=== PATIENT | female | born 1980 | race Caucasian/White ===

== ENCOUNTER 2016-10-14 19:43 | Emergency (ER) | payer MEDICAID ==
[2016-10-14] MEDS ORDERED: diphenhydrAMINE 50 MG/ML SDV IM ONE (20:09)
[2016-10-14] MEDS ORDERED: methylPREDNISolone Sodium Succinate 125 MG/2 ML SDV IM ONE (20:10)
[2016-10-14] MEDS ORDERED: EPINEPHrine 1:1000 1 MG/ML SDV SUBCUT ONE (20:11)
[2016-10-14 21:45] VITALS: BP 131/80
--- NOTE | 2016-10-14 21:48 | EDM.PDOC ---
ED HPI Allergic Reaction - General Chief Complaint: Allergic Reaction Stated Complaint: ALLERGIC REACTION Time Seen by Provider: 10/14/16 20:31 Source: Reports: Patient History Limitations: Reports: No limitations - History of Present Illness INITIAL COMMENTS - FREE TEXT/NARRATIVE: This patient comes in because of an acute allergic reaction to Levaquin. She's been having some upper respiratory/bronchitis issues for about a week. She's been on some different antibiotics and earlier today her dose of Levaquin was increased. Now she complains of tightness in the chest with burning a little bit of shortness of breath and feeling her skin is just burning all over. - Related Data Allergies/ADRs: Allergies Allergy/AdvReac Type Severity Reaction Status Date / Time aspirin Allergy Anaphylactic Verified 02/19/16 16:36 Shock levofloxacin Allergy Difficulty Verified 10/14/16 19:56 Swallowing NSAIDS (Non-Steroidal Allergy Anaphylactic Verified 02/19/16 16:36 Anti-Inflamma Shock Home Meds: Home Meds Acetaminophen [Tylenol Arthritis] 650 mg PO DAILY 02/19/16 [History] Citalopram Hydrobromide [Celexa] 40 mg PO DAILY 02/19/16 [History] busPIRone [Buspar] 20 mg PO BID 02/19/16 [History] Pantoprazole 10/14/16 [History] SUMAtriptan [Imitrex] 10/14/16 [History] Past Medical History HEENT History: Reports: Allergic rhinitis, Other (see below) Other HEENT History: presnetly c/o of headache Respiratory History: Reports: Asthma Gastrointestinal History: Reports: GERD 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, Other (see below) Other OB/BYN History: R oophectomy Musculoskeletal History: Reports: Arthritis, Other (see below) Other Musculoskeletal History: chronic shoulder and neck pain Neurological History: Reports: Migraines Psychiatric History: Reports: Anxiety, OCD, PTSD - Infectious Disease History Infectious Disease History: Reports: Chicken pox - Past Surgical History HEENT Surgical History: Reports: Adenoidectomy, Tonsillectomy GI Surgical History: Reports: Bariatric procedure, Cholecystectomy Female Surgical History: Reports: Endometrial ablation, Other (see below) Other Female Surgeries/Procedures: right ovary and fallopian tube removed Musculoskeletal Surgical History: Reports: None Social & Family History - Tobacco Use Smoking Status *Q: Current Every Day Smoker Years of Tobacco use: 1 Packs/Tins Daily: 0.5 - Alcohol Use Days Per Week of Alcohol Use: 0 - Recreational Drug Use Recreational Drug Use: No ED ROS ALLERGIC REACTION - Review of Systems Review Of Systems: See Below Constitutional: Reports: chills HEENT: Reports: No symptoms Respiratory: Reports: Shortness of Breath, Cough, Sputum Cardiovascular: Reports: Chest pain (Burning) Endocrine: Reports: no symptoms GI/Abdominal: Reports: No symptoms : Reports: no symptoms Musculoskeletal: Reports: no symptoms Skin: Reports: other (Redness itching and burning all over) Neurological: Reports: No Symptoms ED EXAM GENERAL NO PERIP PULSE - Physical Exam Exam: See Below Exam Limited By: No limitations General Appearance: alert, WD/WN, mild distress Eye Exam: bilateral eye: normal inspection Nose: normal inspection Throat/Mouth: Normal oropharynx Head: atraumatic Neck: normal inspection Respiratory/Chest: lungs clear, normal breath sounds Cardiovascular: regular rate, rhythm, no murmur GI/Abdominal: non tender Extremities: normal inspection Neurological: alert, sensory/motor deficit Skin Exam: Warm, Dry, Other (There some moderate erythema to the neck upper chest and upper arms but without obvious wheals. She's scratching a lot) Course - Vital Signs Last Recorded V/S: Last Vital Signs Temp 36.5 C 10/14/16 20:05 Pulse 70 10/14/16 21:45 Resp 18 10/14/16 20:05 BP 131/80 10/14/16 21:45 Pulse Ox 97 10/14/16 21:45 - Orders/Labs/Meds Meds: Medications Discontinued Medications Generic Name Dose Route Start Last Admin Trade Name Ervin PRN Reason Stop Dose Admin Diphenhydramine HCl 50 mg 10/14/16 20:09 10/14/16 20:13 Benadryl IM 10/14/16 20:10 50 mg ONETIME ONE Administration Epinephrine HCl 0.3 mg 10/14/16 20:11 10/14/16 20:14 Adrenalin 1:1000 SUBCUT 10/14/16 20:12 0.3 mg ONETIME ONE Administration Methylprednisolone Sodium Succinate 125 mg 10/14/16 20:10 10/14/16 20:14 Solu-Medrol IM 10/14/16 20:11 125 mg ONETIME ONE Administration - Re-Assessments/Exams Free Text/Narrative Re-Assessment/Exam: 10/15/16 06:37 The patient received Benadryl 50 mg IM Solu-Medrol 125 mg IM and epinephrine 0.3 mg subcutaneously. She was observed over a period of about one hour and her symptoms slowly resolved. At the time of discharge she's feeling a lot better. The burning has subsided the redness is gone her lungs are clear and her oropharynx appears to be normal. We had a long discussion about viral upper respiratory infections, the use of antibiotics in this scenario as well as mucolytic such as guaifenesin and cough suppressants such as dextromethorphan and so forth Departure - Departure Time of Disposition: 21:42 Disposition: Home, Self-Care 01 Condition: fair Clinical Impression: Allergic reaction caused by a drug Instructions: Drug Allergy, [id number] Referrals: PCP,None [Primary Care Provider] - Forms: ED Department Discharge Additional Instructions: Stop taking the Levaquin. Take prednisone 20 mg daily for 2 days. If needed you could take one half tablet daily afterwards and it should not cause problems with steroid withdrawal. Guaifenesin available in Mucinex and other products can help to thin out the sputum so that it clears faster. Some people find that guaifenesin actually makes them cough more because it produces more flow. After a viral upper respiratory infection it's common to cough for 4-6 weeks. The trend is getting away from using antibiotics in upper respiratory infections though they may be needed in people with chronic lung diseases.
== END 2016-10-14 22:02 | disposition home or self-care (01) ==
LOC: JP.ED 19:43
DX: R07.89 Other chest pain (principal); R06.02 Shortness of breath; T37.8X5A Adverse effect of other specified systemic anti-infectives and antiparasitics, initial encounter; K21.9 Gastro-esophageal reflux disease without esophagitis; F41.9 Anxiety disorder, unspecified; F17.210 Nicotine dependence, cigarettes, uncomplicated; Z79.899 Other long term (current) drug therapy; Z88.1 Allergy status to other antibiotic agents; Z88.8 Allergy status to other drugs, medicaments and biological substances; Z98.84 Bariatric surgery status; Z90.49 Acquired absence of other specified parts of digestive tract; Z98.890 Other specified postprocedural states
CPT/HCPCS: 96372; 99283; J0171; J1200; J2930

== ENCOUNTER 2016-12-02 18:34 | Emergency (ER) | payer MEDICAID ==
[2016-12-02] MEDS ORDERED: HYDROmorphone 1 MG/ML Syringe IVPUSH ONE (19:24)
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
[2016-12-02] MEDS: Sodium Chloride 0.9% 10 ML Syringe FLUSH PRN ×3 (19:38→20:56)
[2016-12-02] MEDS ORDERED: Ondansetron 4 MG/2 ML SDV IVPUSH ONE (20:21)
[2016-12-02] MEDS ORDERED: diphenhydrAMINE 50 MG/ML SDV IVPUSH ONE (20:49)
[2016-12-02 21:25] VITALS: BP 124/68
--- NOTE | 2016-12-03 13:30 | CR ---
Cervical Spine Comp w Obliques INDICATION: post fusion out 2 weeks, pain FINDINGS: Mild reversal of normal cervical lordosis. Postoperative changes anterior plate and screw fixation with interbody spacers from C5-C7. Exam otherwise unremarkable.
== END 2016-12-02 21:38 | disposition home or self-care (01) ==
LOC: JP.ED 18:34
DX: G89.18 Other acute postprocedural pain (principal); M54.2 Cervicalgia; J45.909 Unspecified asthma, uncomplicated; K21.9 Gastro-esophageal reflux disease without esophagitis; M19.90 Unspecified osteoarthritis, unspecified site; G43.909 Migraine, unspecified, not intractable, without status migrainosus; F41.9 Anxiety disorder, unspecified; Z90.49 Acquired absence of other specified parts of digestive tract; Z98.890 Other specified postprocedural states; Z88.6 Allergy status to analgesic agent; Z88.8 Allergy status to other drugs, medicaments and biological substances; Z88.0 Allergy status to penicillin; Z79.899 Other long term (current) drug therapy; Z87.891 Personal history of nicotine dependence
CPT/HCPCS: 36415; 72050; 85025; 85651; 86140; 96374; 96375; 99284; J1170; J1200; J2405; J7050

== ENCOUNTER 2017-02-02 08:14 | Emergency (ER) | payer MEDICAID ==
[2017-02-02] MEDS ORDERED: Prochlorperazine 10 MG/2 ML SDV IVPUSH ONE (09:12)
[2017-02-02] MEDS ORDERED: Ketorolac 30 MG/ML SDV IVPUSH ONE (09:12)
[2017-02-02] MEDS ORDERED: diphenhydrAMINE 50 MG/ML SDV IVPUSH ONE (09:12)
[2017-02-02] MEDS ORDERED: Sodium Chloride 0.9% 1,000 ML IV SCH (09:15)
--- NOTE | 2017-02-02 09:18 | EDM.PDOC ---
ED HPI GENERAL MEDICAL PROBLEM - General Chief Complaint: Headache Stated Complaint: HEADACHE FOR PAST SEVERAL DAYS Time Seen by Provider: 02/02/17 08:58 Source of Information: Reports: Patient, RN Notes Reviewed History Limitations: Reports: No Limitations - History of Present Illness INITIAL COMMENTS - FREE TEXT/NARRATIVE: 36-year-old female presents emergency department day complaint of headache, she has a known history of migraine headaches she states this feels typical for her migraines however she has had a fever up to 100.8 her children are currently sick and there is a potential of strep exposure, she also has a history of neck surgery with fusion and plates so always has chronic neck pain Headache Pain Score (Numeric/FACES): 9 - Related Data Allergies Allergy/AdvReac Type Severity Reaction Status Date / Time aspirin Allergy Anaphylactic Verified 02/02/17 08:32 Shock levofloxacin Allergy Difficulty Verified 02/02/17 08:32 Swallowing NSAIDS (Non-Steroidal Allergy Anaphylactic Verified 02/02/17 08:32 Anti-Inflamma Shock Penicillins Allergy Rash Verified 02/02/17 08:32 Home Meds: Home Meds Acetaminophen [Tylenol Arthritis] 650 mg PO DAILY 02/19/16 [History] Citalopram Hydrobromide [Celexa] 40 mg PO DAILY 02/19/16 [History] busPIRone [Buspar] 30 mg PO BID 02/19/16 [History] Pantoprazole 1 tab PO BID 10/14/16 [History] Lactobacillus Acidophilus [Probiotic] 1 each PO DAILY 12/02/16 [History] Calcium Carbonate [Calcium] 1 tab PO TID 02/02/17 [History] Iron,Carbonyl/Ascorbic Acid [Vitron-C Tablet] 1 tab PO DAILY 02/02/17 [History] SUMAtriptan [Imitrex] 1 tab PO ASDIRECTED 02/02/17 [History] tiZANidine 1 tab PO ASDIRECTED 02/02/17 [History] Past Medical History HEENT History: Reports: Allergic Rhinitis Other HEENT History: presnetly c/o of headache Respiratory History: Reports: Asthma Gastrointestinal History: Reports: GERD 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 Other OB/BYN History: R oophectomy Musculoskeletal History: Reports: Arthritis Other Musculoskeletal History: chronic shoulder and neck pain Neurological History: Reports: Migraines Psychiatric History: Reports: Anxiety, OCD, PTSD - Infectious Disease History Infectious Disease History: Reports: Chicken Pox - Past Surgical History GI Surgical History: Reports: Bariatric Procedure, Cholecystectomy Female Surgical History: Reports: Endometrial Ablation Neurological Surgical History: Reports: Spinal Fusion Musculoskeletal Surgical History: Reports: Other (See Below) Other Musculoskeletal Surgeries/Procedures:: Neck surgery Social & Family History - Tobacco Use Smoking Status *Q: Heavy Tobacco Smoker Years of Tobacco use: 14 Packs/Tins Daily: 0.5 Used Tobacco, but Quit: Yes Month Tobacco Last Used: November Second Hand Smoke Exposure: No - Caffeine Use Caffeine Use: Reports: Coffee, Soda - Alcohol Use Days Per Week of Alcohol Use: 0 - Recreational Drug Use Recreational Drug Use: No ED ROS GENERAL - Review of Systems Review Of Systems: See Below Constitutional: Reports: Fever. Denies: Chills HEENT: Reports: No Symptoms. Denies: Throat Pain, Throat Swelling Respiratory: Reports: No Symptoms Cardiovascular: Reports: No Symptoms GI/Abdominal: Reports: Nausea. Denies: Abdominal Pain : Reports: No Symptoms Musculoskeletal: Reports: No Symptoms Skin: Reports: No Symptoms Neurological: Reports: Headache Psychiatric: Reports: No Symptoms - Physical Exam Exam: See Below Text/Narrative:: General: Female, mild discomfort secondary to pain, alert and oriented x3 HEENT: head is atraumatic normocephalic, eyes pupils equal round reactive to light, sclera clear no conjunctivitis appreciated. Funduscopic exam reveals sharp disc margins no papilledema noted Ears tympanic membranes clear and roberts landmarks and light reflex are present bilaterally canals are clear. Nose no septal deviation, nares are clear, no blood present. Mouth mucosa is moist and pink no erythema or exudate noted in soft palate, tongue is midline uvula is midline , dentition is intact. Neck: Supple no thyromegaly no tracheal deviation. Does complain of pain with putting her chin to her chest however it is not out of baseline Nodes: Cervical nodes subclavicular nodes nontender no palpable lymphadenopathy noted. Lungs: clear to auscultation bilaterally with symmetrical respirations, no adventitious noise appreciated. CV: Regular rate and rhythm S1 and S2 appreciated no murmurs rubs or gallops noted. Abdomen: Soft, nontender, no palpable masses or organomegaly appreciated, no distention no guarding bowel sounds are present, . Neuro: Cranial nerves II through XII grossly intact Skin: Warm and dry, intact Extremities: No lower extremity edema appreciated, Course - Vital Signs Last Recorded V/S: Last Vital Signs Temp 97.3 F 02/02/17 09:48 Pulse 63 02/02/17 09:48 Resp 16 02/02/17 09:48 BP 109/72 02/02/17 09:48 Pulse Ox 97 02/02/17 09:48 - Orders/Labs/Meds Orders: Active Orders 24 hr Category Date Time Status CULTURE STREP A CONFIRMATION [] Stat Lab 02/02/17 09:51 Results STREP SCRN A RAPID W CULT CONF [] Stat Lab 02/02/17 09:51 Results Sodium Chloride 0.9% [Normal Saline] 1,000 ml Med 02/02/17 09:15 Active IV ASDIRECTED Medication Orders Sodium Chloride (Normal Saline) 1,000 mls @ 999 mls/hr IV ASDIRECTED BRYCE Last Admin: 02/02/17 09:39 Dose: 999 mls/hr Labs: Laboratory Tests 02/02/17 02/02/17 02/02/17 Range/Units 09:20 09:20 09:20 WBC 7.2 (4.5-11.0) K/uL RBC 4.89 (3.30-5.50) M/uL Hgb 13.6 (12.0-15.0) g/dL Hct 41.2 (36.0-48.0) % MCV 84 (80-98) fL MCH 28 (27-31) pg MCHC 33 (32-36) % Plt Count 262 (150-400) K/uL Neut % (Auto) 50 (36-66) % Lymph % (Auto) 35 (24-44) % [place] % (Auto) 7 H (2-6) % Eos % (Auto) 6 H (2-4) % Baso % (Auto) 2 H (0-1) % Sodium 142 (140-148) mmol/L Potassium 4.3 (3.6-5.2) mmol/L Chloride 107 (100-108) mmol/L Carbon Dioxide 30 (21-32) mmol/L Anion Gap 5.2 (5.0-14.0) mmol/L BUN 12 (7-18) mg/dL Creatinine 0.8 (0.6-1.0) mg/dL Est Cr Clr Drug Dosing 83.95 mL/min Estimated GFR (MDRD) > 60 (>60) Glucose 80 (74-106) mg/dL Calcium 8.8 (8.5-10.1) mg/dL Total Bilirubin 0.4 (0.2-1.0) mg/dL AST 25 (15-37) U/L ALT 30 (12-78) U/L Alkaline Phosphatase 79 (46-116) U/L C-Reactive Protein 0.34 H (0.0-0.3) mg/dL Total Protein 7.5 (6.4-8.2) g/dL Albumin 3.5 (3.4-5.0) g/dL Globulin 4.0 H (2.3-3.5) g/dL Albumin/Globulin Ratio 0.9 L (1.2-2.2) Meds: Medications Generic Name Dose Route Start Last Admin Trade Name Freq PRN Reason Stop Dose Admin Sodium Chloride 1,000 mls @ 999 mls/hr 02/02/17 09:15 02/02/17 09:39 Normal Saline IV 999 mls/hr ASDIRECTED BRYCE Administration Discontinued Medications Generic Name Dose Route Start Last Admin Trade Name Freq PRN Reason Stop Dose Admin Diphenhydramine HCl 25 mg 02/02/17 09:12 02/02/17 09:46 Benadryl IVPUSH 02/02/17 09:13 25 mg ONETIME ONE Administration Ketorolac Tromethamine 30 mg 02/02/17 09:12 02/02/17 09:41 Toradol IVPUSH 02/02/17 09:13 30 mg ONETIME ONE Administration Prochlorperazine Edisylate 5 mg 02/02/17 09:12 02/02/17 09:43 Compazine IVPUSH 02/02/17 09:13 5 mg ONETIME ONE Administration Departure - Departure Time of Disposition: 10:26 Disposition: Home, Self-Care 01 Condition: Good Clinical Impression: Migraine - Discharge Information Forms: ED Department Discharge Additional Instructions: Continue with regular medications, Please followup with your primary care provider in 3-5 days if not better, please call return to the emergency department with worsening of symptoms. - My Orders Last 24 Hours: My Active Orders 02/02/17 09:15 Sodium Chloride 0.9% [Normal Saline] 1,000 ml IV ASDIRECTED 02/02/17 09:51 CULTURE STREP A CONFIRMATION [RM] Stat STREP SCRN A RAPID W CULT CONF [RM] Stat - Assessment/Plan Last 24 Hours: My Active Orders 02/02/17 09:15 Sodium Chloride 0.9% [Normal Saline] 1,000 ml IV ASDIRECTED 02/02/17 09:51 CULTURE STREP A CONFIRMATION [RM] Stat STREP SCRN A RAPID W CULT CONF [RM] Stat Plan: Assessment Acuity = acute Site and laterality = migraine type headache Etiology = unclear etiology Manifestations = none Location of injury = Home Lab values = CBC, CMP, CRP unremarkable Plan She had good improvement combination Toradol, Compazine, fluids and Benadryl she feels she can go home and may be rest and continue to break the headache follow-up with her primary care as needed Patient was in agreement with the plan all questions were answered, they were instructed to return to the emergency department or call for worsening symptoms. This note was dictated using [employer] voice recognition software please call with any questions.
[2017-02-02 09:49] VITALS: BP 109/72
== END 2017-02-02 11:10 | disposition home or self-care (01) ==
LOC: JP.ED 08:14
DX: G43.909 Migraine, unspecified, not intractable, without status migrainosus (principal); F17.210 Nicotine dependence, cigarettes, uncomplicated; J45.909 Unspecified asthma, uncomplicated; K21.9 Gastro-esophageal reflux disease without esophagitis; M19.90 Unspecified osteoarthritis, unspecified site; F43.10 Post-traumatic stress disorder, unspecified; F41.9 Anxiety disorder, unspecified; Z90.49 Acquired absence of other specified parts of digestive tract; Z98.890 Other specified postprocedural states; Z79.899 Other long term (current) drug therapy; Z90.710 Acquired absence of both cervix and uterus; Z98.84 Bariatric surgery status; Z88.6 Allergy status to analgesic agent; Z88.1 Allergy status to other antibiotic agents; Z88.0 Allergy status to penicillin; Z88.8 Allergy status to other drugs, medicaments and biological substances
CPT/HCPCS: 36415; 80053; 85025; 86140; 87081; 87430; 96361; 96374; 96375; 99284; J0780; J1200; J1885; J7040

== ENCOUNTER 2017-02-19 11:54 | Emergency (ER) | payer MEDICAID ==
[2017-02-19 12:12] VITALS: BP 126/74
[2017-02-19] MEDS ORDERED: Ketorolac 60 MG/2 ML SDV IM ONE (12:38)
--- NOTE | 2017-02-19 14:07 | EDM.PDOC ---
ED HPI GENERAL MEDICAL PROBLEM - General Chief Complaint: Chest Pain Stated Complaint: CHEST PAIN Time Seen by Provider: 02/19/17 12:10 Source of Information: Reports: Patient History Limitations: Reports: No Limitations - History of Present Illness INITIAL COMMENTS - FREE TEXT/NARRATIVE: PT HAS HAD A RECENT PROCEDURE ON HER LEFT SHOULDER AND IS GETTING pt. sHE IS DOING SOME STRETCHING EXERCISES. sHE HASNOT FALLEN OR HAD A INJURY. tODAY SHE IS HAVEING PAIN IN THE LEFT LOWER RIB CAGE. sHE IS UNCOMFORTABLE WITH MOVING OR TURNING. Onset: Gradual Duration: Hour(s): Location: Reports: Chest Associated Symptoms: Reports: Chest Pain Chest Pain Score (Numeric/FACES): 5 - Related Data Allergies Allergy/AdvReac Type Severity Reaction Status Date / Time aspirin Allergy Anaphylactic Verified 02/19/17 12:12 Shock levofloxacin Allergy Difficulty Verified 02/19/17 12:12 Swallowing NSAIDS (Non-Steroidal Allergy Anaphylactic Verified 02/19/17 12:12 Anti-Inflamma Shock Penicillins Allergy Rash Verified 02/19/17 12:12 Home Meds: Home Meds Acetaminophen [Tylenol Arthritis] 650 mg PO DAILY 02/19/16 [History] Citalopram Hydrobromide [Celexa] 40 mg PO DAILY 02/19/16 [History] busPIRone [Buspar] 30 mg PO BID 02/19/16 [History] Pantoprazole 1 tab PO BID 10/14/16 [History] Lactobacillus Acidophilus [Probiotic] 1 each PO DAILY 12/02/16 [History] Calcium Carbonate [Calcium] 1 tab PO TID 02/02/17 [History] Iron,Carbonyl/Ascorbic Acid [Vitron-C Tablet] 1 tab PO DAILY 02/02/17 [History] SUMAtriptan [Imitrex] 1 tab PO ASDIRECTED 02/02/17 [History] tiZANidine 1 tab PO ASDIRECTED 02/02/17 [History] Hydrocodone/Acetaminophen [Hydrocodon-Acetaminophen 5-325] 1 each PO Q4HR [History] methylPREDNISolone [Methylprednisolone] 4 mg PO DAILY 02/19/17 [History] Past Medical History HEENT History: Reports: Allergic Rhinitis Other HEENT History: presnetly c/o of headache Respiratory History: Reports: Asthma Gastrointestinal History: Reports: GERD 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 Other OB/BYN History: R oophectomy Musculoskeletal History: Reports: Arthritis Other Musculoskeletal History: chronic shoulder and neck pain Neurological History: Reports: Migraines Psychiatric History: Reports: Anxiety, OCD, PTSD - Infectious Disease History Infectious Disease History: Reports: Chicken Pox - Past Surgical History GI Surgical History: Reports: Bariatric Procedure, Cholecystectomy Female Surgical History: Reports: Endometrial Ablation Neurological Surgical History: Reports: Spinal Fusion Musculoskeletal Surgical History: Reports: Other (See Below) Other Musculoskeletal Surgeries/Procedures:: Neck surgery Social & Family History - Tobacco Use Smoking Status *Q: Current Every Day Smoker Years of Tobacco use: 15 Packs/Tins Daily: 0.5 Used Tobacco, but Quit: Yes Month Tobacco Last Used: November Second Hand Smoke Exposure: No - Caffeine Use Caffeine Use: Reports: Coffee - Alcohol Use Days Per Week of Alcohol Use: 0 - Recreational Drug Use Recreational Drug Use: No ED ROS GENERAL - Review of Systems Review Of Systems: See Below Constitutional: Reports: No Symptoms HEENT: Reports: No Symptoms Respiratory: Reports: Pleuritic Chest Pain, Other (PT HAS PAIN IN HER LEFT CHEST. ) Cardiovascular: Reports: Chest Pain, Other ( SEEMES CHEST WALL) Endocrine: Reports: No Symptoms GI/Abdominal: Reports: No Symptoms : Reports: No Symptoms Musculoskeletal: Reports: Other (TENDERNESS IN THE LEFT CHEST. ) ED EXAM, GENERAL - Physical Exam Exam: See Below Free Text/Narrative:: PT ARRIVED WITH LKEFT CHEST PAIN. sHE HURTS TO MOVE AND IF THERE IS PRESSURE ON THE LEFT RIB CAGE-- LOWER PORTION. Exam Limited By: No Limitations General Appearance: Alert, Anxious, Moderate Distress Ears: Normal TMs Nose: Normal Inspection Throat/Mouth: Normal Inspection Head: Atraumatic Neck: Normal Inspection Respiratory/Chest: No Respiratory Distress (PT IS TENDER TO PALPATE THE LEFT LOWER RIB CAGE. ) Cardiovascular: Regular Rate, Rhythm, Other ( EKG IS NORMAL) GI/Abdominal: Other (PT HAS LEFT SIDED TENDERNESS tHE INTERCOSTAL AREA IS VERY TENDER. . ) (Female) Exam: Deferred Rectal (Female) Exam: Deferred Back Exam: Normal Inspection Extremities: Normal Inspection Course - Vital Signs Last Recorded V/S: Last Vital Signs Temp 36.4 C 02/19/17 12:06 Pulse 82 02/19/17 12:06 Resp 16 02/19/17 12:06 BP 126/74 02/19/17 12:06 Pulse Ox 95 02/19/17 12:06 - Orders/Labs/Meds Orders: Active Orders 24 hr Category Date Time Status EKG Documentation Completion [RC] ASDIRECTED Care 02/19/17 12:39 Active EKG 12 Lead [EK] Routine Ther 02/19/17 12:39 Ordered Labs: Laboratory Tests 02/19/17 02/19/17 02/19/17 Range/Units 12:53 12:53 12:53 WBC 10.2 (4.5-11.0) K/uL RBC 4.77 (3.30-5.50) M/uL Hgb 13.1 (12.0-15.0) g/dL Hct 40.7 (36.0-48.0) % MCV 85 (80-98) fL MCH 28 (27-31) pg MCHC 32 (32-36) % Plt Count 249 (150-400) K/uL Neut % (Auto) 51 (36-66) % Lymph % (Auto) 38 (24-44) % Carroll % (Auto) 8 H (2-6) % Eos % (Auto) 2 (2-4) % Baso % (Auto) 1 (0-1) % Sodium 140 (140-148) mmol/L Potassium 3.9 (3.6-5.2) mmol/L Chloride 105 (100-108) mmol/L Carbon Dioxide 28 (21-32) mmol/L Anion Gap 7.5 (5.0-14.0) mmol/L BUN 12 (7-18) mg/dL Creatinine 0.9 (0.6-1.0) mg/dL Est Cr Clr Drug Dosing 74.62 mL/min Estimated GFR (MDRD) > 60 (>60) Glucose 79 (74-106) mg/dL Calcium 8.5 (8.5-10.1) mg/dL Total Bilirubin 0.4 (0.2-1.0) mg/dL AST 24 (15-37) U/L ALT 29 (12-78) U/L Alkaline Phosphatase 73 (46-116) U/L C-Reactive Protein 0.12 (0.0-0.3) mg/dL Total Protein 7.3 (6.4-8.2) g/dL Albumin 3.5 (3.4-5.0) g/dL Globulin 3.8 H (2.3-3.5) g/dL Albumin/Globulin Ratio 0.9 L (1.2-2.2) Meds: Medications Discontinued Medications Generic Name Dose Route Start Last Admin Trade Name Ervin PRN Reason Stop Dose Admin Ketorolac Tromethamine 60 mg 02/19/17 12:38 02/19/17 12:50 Toradol IM 02/19/17 12:39 60 mg ONETIME ONE Administration - Re-Assessments/Exams Free Text/Narrative Re-Assessment/Exam: 02/19/17 14:14 pT ARRIVED WITH PAIN IN HER LEFT CHEST. tHIS IS WORSE WHEN SHE MOVES. sHE HAD AN EKG WHICH WAS NORMAL. hER CHEST XRAY WAS NORMAL. hER LAB WORK LOOKED GOOD. sHE WAS GIVEN TORODOL WITHOUT GOOD RELIEF. Departure - Departure Time of Disposition: 14:16 Disposition: Home, Self-Care 01 Condition: Fair Clinical Impression: Chest wall pain - Discharge Information Referrals: PCP,None [Primary Care Provider] - Forms: ED Department Discharge Care Plan Goals: BACK OFF ON SOME OF THE THERAPY, MPOIST WARM HEAT TO THE AREA, FLEXERIL 10MG HS , NORCO 5/325 Q6H PRN FOR PAIN FOR NEX 48 HOURS THEN USE TYLENOL 650. M - My Orders Last 24 Hours: My Active Orders 02/19/17 12:39 EKG Documentation Completion [RC] ASDIRECTED EKG 12 Lead [EK] Routine - Assessment/Plan Last 24 Hours: My Active Orders 02/19/17 12:39 EKG Documentation Completion [RC] ASDIRECTED EKG 12 Lead [EK] Routine
--- NOTE | 2017-02-19 14:12 | CR ---
Chest 2V HISTORY: No Clinical Info FINDINGS: Heart size within normal limits. Pulmonary vasculature within normal limits. No evidence fo r focal consolidation or cardiopulmonary process. IMPRESSION: No radiographic evidence for acute cardiopulmonary process.
== END 2017-02-19 14:30 | disposition home or self-care (01) ==
LOC: JP.ED 11:54
DX: R07.89 Other chest pain (principal); J45.909 Unspecified asthma, uncomplicated; K21.9 Gastro-esophageal reflux disease without esophagitis; M19.90 Unspecified osteoarthritis, unspecified site; F41.9 Anxiety disorder, unspecified; F17.210 Nicotine dependence, cigarettes, uncomplicated; Z98.84 Bariatric surgery status; Z90.49 Acquired absence of other specified parts of digestive tract; Z98.1 Arthrodesis status; Z98.890 Other specified postprocedural states; Z79.899 Other long term (current) drug therapy; Z88.0 Allergy status to penicillin; Z88.1 Allergy status to other antibiotic agents; Z88.8 Allergy status to other drugs, medicaments and biological substances
CPT/HCPCS: 36415; 71020; 80053; 85025; 86140; 93005; 96372; 99285; J1885

== ENCOUNTER 2017-03-23 21:15 | Emergency (ER) | payer MEDICAID ==
[2017-03-23] MEDS ORDERED: LORazepam 0.5 MG Tab PO ONE (23:16)
[2017-03-23] MEDS ORDERED: diphenhydrAMINE 50 MG/ML SDV IM ONE (23:16)
--- NOTE | 2017-03-23 23:22 | EDM.PDOC ---
ED HPI GENERAL MEDICAL PROBLEM - General Chief Complaint: General Stated Complaint: DIZZY FAINT HIGH BLOOD PRESSURE Time Seen by Provider: 03/23/17 22:30 Source of Information: Reports: Patient, Family History Limitations: Reports: No Limitations - History of Present Illness INITIAL COMMENTS - FREE TEXT/NARRATIVE: pt arrived feeling itchy and she has a burning sensation in her left arm area. She had an imjection at the pain clinic in the left post thoracic area. she knows there was some steriod in the injection. She has never reacted to the steriod in the past. She does not have her paper her with her that shows what the injection consisted of. Onset: Today Duration: Hour(s):, Getting Worse Location: Reports: Chest, Upper Extremity, Left, Other ( Pt has a burning sensation in the left upper arm area and left shoulder. ) Headache Pain Score (Numeric/FACES): 7 - Related Data Allergies Allergy/AdvReac Type Severity Reaction Status Date / Time aspirin Allergy Anaphylactic Verified 03/23/17 22:56 Shock levofloxacin Allergy Difficulty Verified 03/23/17 22:56 Swallowing NSAIDS (Non-Steroidal Allergy Anaphylactic Verified 03/23/17 22:56 Anti-Inflamma Shock Penicillins Allergy Rash Verified 03/23/17 22:56 Home Meds: Home Meds Acetaminophen [Tylenol Arthritis] 650 mg PO DAILY 02/19/16 [History] Citalopram Hydrobromide [Celexa] 40 mg PO DAILY 02/19/16 [History] busPIRone [Buspar] 30 mg PO BID 02/19/16 [History] Pantoprazole 1 tab PO BID 10/14/16 [History] Lactobacillus Acidophilus [Probiotic] 1 each PO DAILY 12/02/16 [History] Calcium Carbonate [Calcium] 1 tab PO TID 02/02/17 [History] Iron,Carbonyl/Ascorbic Acid [Vitron-C Tablet] 1 tab PO DAILY 02/02/17 [History] SUMAtriptan [Imitrex] 1 tab PO ASDIRECTED 02/02/17 [History] Hydrocodone/Acetaminophen [Hydrocodon-Acetaminophen 5-325] 1 each PO Q4HR [History] Past Medical History HEENT History: Reports: Allergic Rhinitis Other HEENT History: presnetly c/o of headache Respiratory History: Reports: Asthma Gastrointestinal History: Reports: GERD 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 Other OB/BYN History: R oophectomy Musculoskeletal History: Reports: Arthritis Other Musculoskeletal History: chronic shoulder and neck pain Neurological History: Reports: Migraines Psychiatric History: Reports: Anxiety, OCD, PTSD - Infectious Disease History Infectious Disease History: Reports: Chicken Pox - Past Surgical History GI Surgical History: Reports: Bariatric Procedure, Cholecystectomy Female Surgical History: Reports: Endometrial Ablation Neurological Surgical History: Reports: Spinal Fusion Musculoskeletal Surgical History: Reports: Other (See Below) Other Musculoskeletal Surgeries/Procedures:: Neck surgery Injections for pain [facility] in [place]. Social & Family History - Tobacco Use Smoking Status *Q: Current Every Day Smoker Years of Tobacco use: 15 Packs/Tins Daily: 0.5 Used Tobacco, but Quit: No Month Tobacco Last Used: November Second Hand Smoke Exposure: No - Caffeine Use Caffeine Use: Reports: Coffee, Soda - Alcohol Use Days Per Week of Alcohol Use: 0 - Recreational Drug Use Recreational Drug Use: No ED ROS GENERAL - Review of Systems Review Of Systems: See Below Constitutional: Reports: No Symptoms HEENT: Reports: No Symptoms Respiratory: Reports: No Symptoms, Other (pt had a left post injection in the past. ) Cardiovascular: Reports: No Symptoms Endocrine: Reports: No Symptoms GI/Abdominal: Reports: No Symptoms : Reports: No Symptoms Musculoskeletal: Reports: Other ( burning in the left upper arm and shoulder area. ) Skin: Reports: No Symptoms Neurological: Reports: No Symptoms ED EXAM, GENERAL - Physical Exam Exam: See Below Free Text/Narrative:: pt was burning in the left shoulder and feeling slightly itchy. She did have a steroid injection in the cervical area yesterday. Ifeel the sensation she is having is related to that. Exam Limited By: No Limitations General Appearance: Alert, Anxious Ears: Normal TMs Nose: Normal Inspection Throat/Mouth: Normal Inspection Head: Atraumatic Neck: Normal Inspection Respiratory/Chest: Other ( pt has a burning sensation in the left upper chest. It feels hot. She had cervical injection with steroids. ) Cardiovascular: Regular Rate, Rhythm Peripheral Pulses: 4+: Dorsalis Pedis (R) GI/Abdominal: Soft, Non-Tender (Female) Exam: Deferred Rectal (Female) Exam: Deferred Extremities: Other (pt does not have hives but she does feel slightly itchy. ) Course - Vital Signs Last Recorded V/S: Last Vital Signs Temp 35.4 C 03/24/17 00:05 Pulse 68 03/24/17 00:05 Resp 20 03/24/17 00:05 BP 154/64 H 03/24/17 00:05 Pulse Ox 97 03/23/17 23:04 - Orders/Labs/Meds Labs: Laboratory Tests 03/23/17 03/23/17 Range/Units 23:27 23:27 WBC 15.6 H (4.5-11.0) K/uL RBC 4.58 (3.30-5.50) M/uL Hgb 12.8 (12.0-15.0) g/dL Hct 38.5 (36.0-48.0) % MCV 84 (80-98) fL MCH 28 (27-31) pg MCHC 33 (32-36) % Plt Count 268 (150-400) K/uL Neut % (Auto) 61 (36-66) % Lymph % (Auto) 32 (24-44) % [place]ruff % (Auto) 6 (2-6) % Eos % (Auto) 1 L (2-4) % Baso % (Auto) 1 (0-1) % Sodium 142 (140-148) mmol/L Potassium 4.1 (3.6-5.2) mmol/L Chloride 105 (100-108) mmol/L Carbon Dioxide 28 (21-32) mmol/L Anion Gap 8.8 (5.0-14.0) mmol/L BUN 16 (7-18) mg/dL Creatinine 0.8 (0.6-1.0) mg/dL Est Cr Clr Drug Dosing 83.95 mL/min Estimated GFR (MDRD) > 60 (>60) Glucose 106 (74-106) mg/dL Calcium 8.6 (8.5-10.1) mg/dL Meds: Medications Discontinued Medications Generic Name Dose Route Start Last Admin Trade Name Freq PRN Reason Stop Dose Admin Diphenhydramine HCl 50 mg 03/23/17 23:16 03/23/17 23:33 Benadryl IM 03/23/17 23:17 50 mg ONETIME ONE Administration Lorazepam 0.5 mg 03/23/17 23:16 03/23/17 23:31 Ativan PO 03/23/17 23:17 0.5 mg ONETIME ONE Administration - Re-Assessments/Exams Free Text/Narrative Re-Assessment/Exam: 03/24/17 00:22 Pt was given benadryl 50mg and ativan . 5 po. She feels much better. She was advised that what she was feeling was related to the injection and to advise the pain clinic of what happened when she goes back. Departure - Departure Time of Disposition: 00:24 Disposition: Home, Self-Care 01 Condition: Fair Clinical Impression: Medication adverse effect - Discharge Information Instructions: Drug Allergy, [id number]-Elys Referrals: PCP,None [Primary Care Provider] - Forms: ED Department Discharge Care Plan Goals: cool pack the neck and shoulder area, benadryl 50mg q6h for the next 24 hours.
[2017-03-24 00:36] VITALS: BP 154/64
== END 2017-03-24 00:37 | disposition home or self-care (01) ==
LOC: JP.ED 21:15
DX: R20.9 Unspecified disturbances of skin sensation (principal); R51 Headache; T38.0X5A Adverse effect of glucocorticoids and synthetic analogues, initial encounter; J45.909 Unspecified asthma, uncomplicated; F17.210 Nicotine dependence, cigarettes, uncomplicated; K21.9 Gastro-esophageal reflux disease without esophagitis; Z88.6 Allergy status to analgesic agent; Z88.1 Allergy status to other antibiotic agents; Z88.0 Allergy status to penicillin; Z79.899 Other long term (current) drug therapy
CPT/HCPCS: 36415; 80048; 85025; 96372; 99284; A9270; J1200

== ENCOUNTER 2017-05-17 23:34 | Emergency (ER) | payer OTHER, MEDICAID ==
[2017-05-18 00:14] VITALS: BP 127/88
[2017-05-18] MEDS ORDERED: Ketorolac 30 MG/ML SDV IVPUSH ONE (00:22)
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
[2017-05-18] MEDS ORDERED: Sodium Chloride 0.9% 10 ML Syringe FLUSH PRN (00:43)
[2017-05-18] MEDS ORDERED: Iopamidol 612 MG/ML 100 ML Bottle IV PRN (00:43)
[2017-05-18] MEDS ORDERED: Sodium Chloride 0.9% 75 ML IV ONE (00:43)
== END 2017-05-18 02:35 | disposition home or self-care (01) ==
LOC: JP.ED 23:34
DX: R07.9 Chest pain, unspecified (principal); R51 Headache; F17.210 Nicotine dependence, cigarettes, uncomplicated; Z88.6 Allergy status to analgesic agent; Z88.8 Allergy status to other drugs, medicaments and biological substances; Z88.0 Allergy status to penicillin; V49.88XA Car occupant (driver) (passenger) injured in other specified transport accidents, initial encounter
CPT/HCPCS: 70450; 71260; 96374; 99284; J1885; J7030; J7050; Q9967

== ENCOUNTER 2018-08-30 13:23 | Emergency (ER) | payer MEDICAID ==
[2018-08-30 13:39] VITALS: BP 140/80
[2018-08-30] MEDS ORDERED: Bacitracin Oint 1 GM U/D Packet TOP ONE (13:58)
--- NOTE | 2018-08-30 14:02 | EDM.PDOC ---
ED HPI GENERAL MEDICAL PROBLEM - General Chief Complaint: Laceration Stated Complaint: CUT FINGER Time Seen by Provider: 08/30/18 13:55 Source of Information: Reports: Patient, Family, RN Notes Reviewed History Limitations: Reports: No Limitations - History of Present Illness INITIAL COMMENTS - FREE TEXT/NARRATIVE: 37-year-old female presents emergency department today with a laceration to her left hand digit #2 palmar surface of this occurred with a brand-new knife no functional complaints - Related Data Allergies Allergy/AdvReac Type Severity Reaction Status Date / Time aspirin Allergy Anaphylactic Verified 08/30/18 13:40 Shock levofloxacin Allergy Difficulty Verified 08/30/18 13:40 Swallowing NSAIDS (Non-Steroidal Allergy Anaphylactic Verified 08/30/18 13:40 Anti-Inflamma Shock Penicillins Allergy Rash Verified 08/30/18 13:40 Home Meds: Home Meds Acetaminophen [Tylenol Arthritis] 650 mg PO ASDIRECTED PRN 02/19/16 [History] Pantoprazole 1 tab PO BID 10/14/16 [History] ALPRAZolam [Alprazolam] 0.25 mg PO BID PRN 01/25/18 [History] Albuterol [Ventolin HFA] 2 puff INH Q4H PRN 01/25/18 [History] Cholecalciferol (Vitamin D3) [Vitamin D3] 5,000 unit PO DAILY 01/25/18 [History] Cyanocobalamin (Vitamin B-12) [Cyanocobalamin Injection] 1,000 mcg IJ ASDIRECTED 01/25/18 [History] Nicotine [Nicotine Patch] 21 mg TD Q24H 01/25/18 [History] Erenumab-Aooe [Aimovig Autoinjector (2 Pack)] 1 injection SUBCUT ASDIRECTED 03/12 [History] tiZANidine [Zanaflex] 1 tab PO TID 08/30/18 [History] Past Medical History HEENT History: Reports: Allergic Rhinitis Other HEENT History: presnetly c/o of headache Respiratory History: Reports: Asthma Gastrointestinal History: Reports: GERD Other Gastrointestinal History: cervical steroid injections PROFESSIONAL SYSTEM ADMINISTRATOR History: Reports: Endometrial Ablation Other PROFESSIONAL SYSTEM ADMINISTRATOR History: R oophectomy Musculoskeletal History: Reports: Arthritis Other Musculoskeletal History: chronic shoulder and neck pain Neurological History: Reports: Migraines Psychiatric History: Reports: Anxiety, OCD, PTSD - Infectious Disease History Infectious Disease History: Reports: Chicken Pox - Past Surgical History GI Surgical History: Reports: Bariatric Procedure, Cholecystectomy Female Surgical History: Reports: Endometrial Ablation, Hysterectomy, Other ( See Below) Other Female Surgeries/Procedures: l salpingectomy cysto Neurological Surgical History: Reports: Spinal Fusion Musculoskeletal Surgical History: Reports: Other (See Below) Other Musculoskeletal Surgeries/Procedures:: Neck surgery [facility] [place]. Neck fusion in October 2016 Social & Family History - Tobacco Use Smoking Status *Q: Current Every Day Smoker Years of Tobacco use: 4 Packs/Tins Daily: 0.2 - Caffeine Use Caffeine Use: Reports: Coffee, Soda ED ROS GENERAL - Review of Systems Review Of Systems: See Below Constitutional: Reports: No Symptoms Skin: Reports: Wound Neurological: Reports: No Symptoms ED EXAM, SKIN/RASH Exam: See Below Text/Narrative:: Examination left hand she does have approximately a 2 cm laceration palmar surface digit #2 in between the PIP and DIP joints it is completely through the dermis into the subcutaneous tissue Exam Limited By: No Limitations General Appearance: Alert, WD/WN, No Apparent Distress ED SKIN PROCEDURES - Laceration/Wound Repair Left Digit - 2nd (Index) Lac/Wound length In cm: 2 Appearance: Subcutaneous, Linear, Clean Distal NVT: Neuro & Vascular Intact, No Tendon Injury Anesthetic Type: Digital Local Anesthesia - Lidocaine (Xylocaine): 1% Plain Local Anesthetic Volume: 2cc Skin Prep: Saline Saline Irrigation (cc's): 60 Exploration/Debridement/Repair: Wound Explored, In a Bloodless Field, Explored to Base Closed with: Sutures Suture Size: 4-0 # of Sutures: 3 Suture Type: Prolene, Interrupted Sterile Dressing Applied: Nurse Tetanus Status Addressed: Yes (Patient states within the last 10 years) Complications: No Course - Vital Signs Last Recorded V/S: Last Vital Signs Temp 96.4 F 08/30/18 13:49 Pulse 85 08/30/18 13:49 Resp 14 08/30/18 13:49 BP 140/80 08/30/18 13:49 Pulse Ox 98 08/30/18 13:49 - Orders/Labs/Meds Meds: Medications Discontinued Medications Generic Name Dose Route Start Last Admin Trade Name Freq PRN Reason Stop Dose Admin Bacitracin 1 dose 08/30/18 13:58 08/30/18 14:11 Bacitracin Oint 1 Gm TOP 08/30/18 13:59 1 dose ONETIME ONE Administration Lidocaine HCl 5 ml 08/30/18 13:58 08/30/18 14:11 Xylocaine-Mpf 1% INJECT 08/30/18 13:59 5 ml ONETIME ONE Administration Departure - Departure Time of Disposition: 15:05 Disposition: Home, Self-Care 01 Condition: Fair Clinical Impression: Laceration of left index finger Qualifiers: Encounter type: initial encounter Damage to nail status: without damage Foreign body presence: without foreign body Qualified Code(s): S61.211A - Laceration without foreign body of left index finger without damage to nail, initial encounter - Discharge Information Referrals: PCP,None [Primary Care Provider] - Forms: ED Department Discharge Additional Instructions: Suture removal in 10 days, follow wound care instruction sheet, follow-up with primary care or return to emergency department for suture removal - Assessment/Plan Plan: Assessment Acuity = acute Site and laterality = 2 cm laceration palmar surface digit #2 left hand Etiology = secondary trauma with a knife Manifestations = none Location of injury = Home Lab values = none Plan Suture removal in 10 days, follow wound care instruction sheet follow-up with primary care return to emergency department for suture removal This note was dictated using [employer] voice recognition software please call with any questions on syntax or grammar.
== END 2018-08-30 15:15 | disposition home or self-care (01) ==
LOC: JP.ED 13:23
DX: S61.211A Laceration without foreign body of left index finger without damage to nail, initial encounter (principal); K21.9 Gastro-esophageal reflux disease without esophagitis; F41.9 Anxiety disorder, unspecified; Z88.6 Allergy status to analgesic agent; Z88.1 Allergy status to other antibiotic agents; Z88.0 Allergy status to penicillin; Z88.8 Allergy status to other drugs, medicaments and biological substances; Z79.899 Other long term (current) drug therapy; W26.0XXA Contact with knife, initial encounter
CPT/HCPCS: 12001; 99282; J2001

== ENCOUNTER 2019-05-15 16:03 | Emergency (ER) | payer MEDICAID ==
[2019-05-15 16:18] VITALS: BP 123/82; PULSE 65
[2019-05-15] MEDS ORDERED: Prochlorperazine 10 MG/2 ML SDV IVPUSH ONE (16:38)
[2019-05-15] MEDS ORDERED: Ketorolac 30 MG/ML SDV IVPUSH ONE (16:38)
[2019-05-15] MEDS ORDERED: diphenhydrAMINE 50 MG/ML SDV IVPUSH ONE (16:38)
[2019-05-15] MEDS ORDERED: Sodium Chloride 0.9% 1,000 ML IV SCH (16:45)
--- NOTE | 2019-05-15 16:46 | EDM.PDOC ---
ED HPI GENERAL MEDICAL PROBLEM - General Chief Complaint: Headache Stated Complaint: MIGRAINE Time Seen by Provider: 05/15/19 16:30 Source of Information: Reports: Patient History Limitations: Reports: No Limitations - History of Present Illness INITIAL COMMENTS - FREE TEXT/NARRATIVE: 30-year-old female with a history of chronic migraines who responds really well to one monthly injection of erenumab but due to some type of insurance problem she has not had a consistent also over the past 2 months. She developed a left- sided periorbital throbbing headache yesterday and it is persisting today. She called her neurologist and he recommended coming in to get some relief. Her last ER visit for migraine headache was prior to her starting her preventive medicine and she responded well to Toradol, Compazine and Benadryl IV as well as fluids. She's had some persistent vomiting. No fever or chills. Onset: Gradual Duration: Hour(s): (Started just under 24 hours ago) Location: Reports: Head (Left-sided, periorbital) Associated Symptoms: Reports: Nausea/Vomiting, Other (Photophobia) Headache Pain Score (Numeric/FACES): 10 - Related Data Allergies Allergy/AdvReac Type Severity Reaction Status Date / Time aspirin Allergy Severe Anaphylactic Verified 05/15/19 17:03 Shock NSAIDS (Non-Steroidal Allergy Severe Anaphylactic Verified 05/16/19 08:12 Anti-Inflamma Shock levofloxacin Allergy Intermediate Difficulty Verified 05/15/19 17:04 Swallowing Penicillins Allergy Rash Verified 05/15/19 16:25 Home Meds: Home Meds Acetaminophen [Tylenol Arthritis] 650 mg PO ASDIRECTED PRN 02/19/16 [History] Pantoprazole 1 tab PO BID 10/14/16 [History] Albuterol [Ventolin HFA] 2 puff INH Q4H PRN 01/25/18 [History] Cholecalciferol (Vitamin D3) [Vitamin D3] 5,000 unit PO DAILY 01/25/18 [History] Cyanocobalamin (Vitamin B-12) [Cyanocobalamin Injection] 1,000 mcg IJ ASDIRECTED 01/25/18 [History] Erenumab-Aooe [Aimovig Autoinjector] 1 injection SUBCUT ASDIRECTED 08/30/18 [ History] Docusate Sodium [Colace] 1 tab PO BID 03/02/19 [History] FLUoxetine HCl [Prozac] 60 mg PO DAILY 03/02/19 [History] Erenumab-Aooe [Aimovig Autoinjector] 140 mg SQ ASDIRECTED 05/15/19 [History] Past Medical History HEENT History: Reports: Allergic Rhinitis Other HEENT History: presnetly c/o of headache Respiratory History: Reports: Asthma Gastrointestinal History: Reports: GERD Other Gastrointestinal History: cervical steroid injections A AUXILIARY History: Reports: Endometrial Ablation Other A AUXILIARY History: R oophectomy Musculoskeletal History: Reports: Arthritis Other Musculoskeletal History: chronic shoulder and neck pain Neurological History: Reports: Migraines Psychiatric History: Reports: Anxiety, OCD, PTSD Hematologic History: Reports: B12 Deficiency, Iron Deficiency - Infectious Disease History Infectious Disease History: Reports: Chicken Pox - Past Surgical History GI Surgical History: Reports: Bariatric Procedure, Cholecystectomy, Hernia, Abdominal, Other (See Below) Other GI Surgeries/Procedures: pann on 02/19/2019 Female Surgical History: Reports: Endometrial Ablation, Hysterectomy, Other ( See Below) Other Female Surgeries/Procedures: l salpingectomy cysto Neurological Surgical History: Reports: Spinal Fusion Musculoskeletal Surgical History: Reports: Other (See Below) Other Musculoskeletal Surgeries/Procedures:: Neck surgery [facility] [place]. Neck fusion in October 2016 Social & Family History - Family History Family Medical History: Noncontributory - Tobacco Use Smoking Status *Q: Former Smoker Years of Tobacco use: 20 Packs/Tins Daily: 0.5 Used Tobacco, but Quit: Yes Month/Year Tobacco Last Used: December 2018 Second Hand Smoke Exposure: No - Caffeine Use Caffeine Use: Reports: Coffee - Recreational Drug Use Recreational Drug Use: No ED ROS GENERAL - Review of Systems Review Of Systems: See Below Constitutional: Reports: Malaise. Denies: Fever, Chills HEENT: Reports: Other (Does have photophobia but no vision change). Denies: Vision Change Respiratory: Denies: Shortness of Breath Cardiovascular: Denies: Chest Pain GI/Abdominal: Reports: Nausea, Vomiting. Denies: Abdominal Pain Skin: Reports: No Symptoms Neurological: Reports: Headache - Physical Exam Exam: See Below Exam Limited By: No Limitations General Appearance: Alert, Mild Distress (Looks fairly uncomfortable) Eye Exam: Bilateral Eye: PERRL Head Exam: Atraumatic Respiratory/Chest: No Respiratory Distress Neuro Exam (Abbreviated): Alert, Oriented, No Motor/Sensory Deficits Psychiatric: Normal Affect, Normal Mood Skin Exam: Warm, Dry Course - Vital Signs Last Recorded V/S: Last Vital Signs Temp 97.6 F 05/15/19 16:30 Pulse 65 05/15/19 16:30 Resp 16 05/15/19 16:30 BP 123/82 05/15/19 16:30 Pulse Ox 98 05/15/19 16:30 - Orders/Labs/Meds Meds: Medications Discontinued Medications Generic Name Dose Route Start Last Admin Trade Name Ervin PRN Reason Stop Dose Admin Diphenhydramine HCl 50 mg 05/15/19 16:48 05/15/19 16:52 Benadryl IM 05/15/19 16:49 50 mg ONETIME ONE Administration Ketorolac Tromethamine 60 mg 05/15/19 16:48 05/15/19 17:08 Toradol IM 05/15/19 16:49 60 mg ONETIME ONE Administration Prochlorperazine Edisylate 10 mg 05/15/19 16:48 05/15/19 16:57 Compazine IM 05/15/19 16:49 10 mg ONETIME ONE Administration - Re-Assessments/Exams Free Text/Narrative Re-Assessment/Exam: 05/15/19 16:52 Initial plan was to repeat the treatment she had 2 years ago that she responded well to which was 1 L of normal saline, IV Compazine, Toradol, and Benadryl. However nursing was having difficulty getting an IV started and she asked if she could get the medications IM. This is reasonable as she has no signs of dehydration. She was then given 60 mg of IM Toradol, 10 mg of IM Compazine and 50 mg of IM Benadryl. 05/15/19 17:41 30 minutes after the injections of medication she was feeling better but not completely relieved. She did want to go home and rest rather than rest here so she was discharged. She'll return if not improving satisfactorily. Departure - Departure Time of Disposition: 17:50 Disposition: Home, Self-Care 01 Condition: Good Clinical Impression: Migraine - Discharge Information Instructions: Migraine Headache, [id number] Referrals: Yessica Rubin LAB ANALYST [Primary Care Provider] - Forms: ED Department Discharge Care Plan Goals: Rest tonight, continue your medications as prescribed and return if not improving satisfactorily.
[2019-05-15] MEDS ORDERED: diphenhydrAMINE 50 MG/ML SDV IM ONE (16:48)
[2019-05-15] MEDS ORDERED: Prochlorperazine 10 MG/2 ML SDV IM ONE (16:48)
[2019-05-15] MEDS ORDERED: Ketorolac 60 MG/2 ML SDV IM ONE (16:48)
== END 2019-05-15 17:50 | disposition home or self-care (01) ==
LOC: JP.ED 16:03
DX: G43.909 Migraine, unspecified, not intractable, without status migrainosus (principal); J45.909 Unspecified asthma, uncomplicated; K21.9 Gastro-esophageal reflux disease without esophagitis; Z88.6 Allergy status to analgesic agent; Z88.1 Allergy status to other antibiotic agents; Z88.0 Allergy status to penicillin; Z79.899 Other long term (current) drug therapy; Z87.891 Personal history of nicotine dependence
CPT/HCPCS: 96372; 99284; J0780; J1200; J1885

== ENCOUNTER 2019-07-19 01:01 | Emergency (ER) | payer MEDICAID ==
[2019-07-19 02:23] VITALS: BP 111/72; PULSE 42
[2019-07-19] MEDS ORDERED: Sodium Chloride 0.9% 10 ML Syringe FLUSH PRN (02:25)
[2019-07-19] MEDS ORDERED: fentaNYL 100 MCG/2 ML SDV IVPUSH ONE ×2 (02:28→03:34)
[2019-07-19] MEDS ORDERED: Ondansetron 4 MG/2 ML SDV IVPUSH ONE (02:28)
[2019-07-19] MEDS ORDERED: Sodium Chloride 0.9% 1,000 ML IV SCH (02:30)
--- NOTE | 2019-07-19 02:31 | EDM.PDOC ---
ED HPI GENERAL MEDICAL PROBLEM - General Chief Complaint: Lower Extremity Injury/Pain Stated Complaint: PAIN RIGHT LEG Time Seen by Provider: 07/19/19 02:06 Source of Information: Reports: Patient, RN Notes Reviewed History Limitations: Reports: No Limitations - History of Present Illness INITIAL COMMENTS - FREE TEXT/NARRATIVE: 38-year-old female presents emergency department a complaint of right groin pain , she was evaluated in the clinic for this on Saturday started on prednisone and pre-gabapentin. She states the pain is quite intense and will come and go she has had recent abdominal surgery with a hernia repair as well as a penectomy. She states she is nauseated no shortness of breath or chest pain no fever right hip pain Pain Score (Numeric/FACES): 10 - Related Data Allergies Allergy/AdvReac Type Severity Reaction Status Date / Time aspirin Allergy Severe Anaphylactic Verified 07/19/19 01:56 Shock NSAIDS (Non-Steroidal Allergy Severe Anaphylactic Verified 07/19/19 01:56 Anti-Inflamma Shock levofloxacin Allergy Intermediate Difficulty Verified 07/19/19 01:56 Swallowing Penicillins Allergy Rash Verified 07/19/19 01:56 Home Meds: Home Meds Acetaminophen [Tylenol Arthritis] 650 mg PO ASDIRECTED PRN 02/19/16 [History] Pantoprazole 20 mg PO BID 10/14/16 [History] Albuterol [Ventolin HFA] 2 puff INH Q4H PRN 01/25/18 [History] Cholecalciferol (Vitamin D3) [Vitamin D3] 10,000 unit PO WEEKLY 01/25/18 [ History] Cyanocobalamin (Vitamin B-12) [Cyanocobalamin Injection] 1,000 mcg IJ ASDIRECTED 01/25/18 [History] Docusate Sodium [Colace] 1 tab PO BID PRN 03/02/19 [History] FLUoxetine HCl [Prozac] 60 mg PO DAILY 03/02/19 [History] Erenumab-Aooe [Aimovig Autoinjector] 140 mg SQ ASDIRECTED 05/15/19 [History] Diazepam [Valium] 5 mg PO ASDIRECTED PRN 07/19/19 [History] Pregabalin [Lyrica] 25 - 75 mg PO BID 07/19/19 [History] predniSONE [Prednisone] 40 mg PO DAILY 07/19/19 [History] Past Medical History HEENT History: Reports: Allergic Rhinitis Other HEENT History: presnetly c/o of headache Respiratory History: Reports: Asthma Gastrointestinal History: Reports: GERD, Other (See Below) Other Gastrointestinal History: cervical steroid injections 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 Other NYLON OPERATOR History: R oophectomy Musculoskeletal History: Reports: Arthritis Other Musculoskeletal History: chronic shoulder and neck pain Neurological History: Reports: Migraines Psychiatric History: Reports: Anxiety, OCD, PTSD Hematologic History: Reports: B12 Deficiency, Iron Deficiency - Infectious Disease History Infectious Disease History: Reports: Chicken Pox - Past Surgical History GI Surgical History: Reports: Bariatric Procedure, Cholecystectomy, Hernia, Abdominal, Other (See Below) Other GI Surgeries/Procedures: pann on 02/19/2019 Female Surgical History: Reports: Endometrial Ablation, Hysterectomy Other Female Surgeries/Procedures: bilateral fallopian tubes removed and right ovary removed Neurological Surgical History: Reports: Spinal Fusion Musculoskeletal Surgical History: Reports: Other (See Below) Other Musculoskeletal Surgeries/Procedures:: Neck surgery [facility] [place]. Neck fusion in October 2016 Social & Family History - Family History Family Medical History: Noncontributory - Tobacco Use Smoking Status *Q: Never Smoker - Caffeine Use Caffeine Use: Reports: Coffee - Recreational Drug Use Recreational Drug Use: No Review of Systems - Review of Systems Review Of Systems: See Below Constitutional: Reports: No Symptoms Respiratory: Reports: No Symptoms Cardiovascular: Reports: No Symptoms GI/Abdominal: Reports: Abdominal Pain, Nausea. Denies: Vomiting Genitourinary: Reports: No Symptoms Musculoskeletal: Reports: Hand Pain Neurological: Reports: Numbness, Tingling (Right leg) ED EXAM, GENERAL - Physical Exam Exam: See Below Exam Limited By: No Limitations General Appearance: Alert, WD/WN, No Apparent Distress Respiratory/Chest: No Respiratory Distress, Lungs Clear, Normal Breath Sounds, No Accessory Muscle Use, Chest Non-Tender Cardiovascular: Regular Rate, Rhythm, No Murmur GI/Abdominal: Normal Bowel Sounds, Soft, No Distention, Tender (Right lower quadrant) Back Exam: Normal Inspection, Full Range of Motion. No: CVA Tenderness (R), CVA Tenderness (L) Extremities: Normal Inspection, No Pedal Edema Course - Vital Signs Last Recorded V/S: Last Vital Signs Temp 97.8 F 07/19/19 02:23 Pulse 42 L 07/19/19 02:23 Resp 16 07/19/19 02:23 BP 111/72 07/19/19 02:23 Pulse Ox 97 07/19/19 02:23 - Orders/Labs/Meds Orders: Active Orders 24 hr Category Date Time Status Peripheral IV Care [RC] . DIRECTED Care 07/19/19 02:26 Active Sodium Chloride 0.9% [Normal Saline] 1,000 ml Med 07/19/19 02:30 Active IV ASDIRECTED Sodium Chloride 0.9% [Normal Saline] 82 ml Med 07/19/19 02:45 Active IV ASDIRECTED Sodium Chloride 0.9% [Saline Flush] Med 07/19/19 02:25 Active 10 ml FLUSH ASDIRECTED PRN Peripheral IV Insertion Adult [OM.PC] Urgent Oth 07/19/19 02:25 Ordered Medication Orders Sodium Chloride (Normal Saline) 1,000 mls @ 500 mls/hr IV ASDIRECTED BRYCE Last Admin: 07/19/19 02:49 Dose: 500 mls/hr Sodium Chloride (Normal Saline) 82 mls @ 3.5 mls/sec IV ASDIRECTED BRYCE Last Admin: 07/19/19 03:16 Dose: 3.5 mls/sec Sodium Chloride (Saline Flush) 10 ml FLUSH ASDIRECTED PRN PRN Reason: Keep Vein Open Last Admin: 07/19/19 04:16 Dose: 10 ml Labs: Laboratory Tests 07/19/19 07/19/19 07/19/19 Range/Units 02:45 02:45 02:45 WBC 11.2 H (4.5-11.0) K/uL RBC 4.35 (3.30-5.50) M/uL Hgb 12.1 (12.0-15.0) g/dL Hct 37.9 (36.0-48.0) % MCV 87 (80-98) fL MCH 28 (27-31) pg MCHC 32 (32-36) % Plt Count 295 (150-400) K/uL Neut % (Auto) 67 H (36-66) % Lymph % (Auto) 26 (24-44) % [place] % (Auto) 6 (2-6) % Eos % (Auto) 0 L (2-4) % Baso % (Auto) 0 (0-1) % Sodium 140 (140-148) mmol/L Potassium 4.1 (3.6-5.2) mmol/L Chloride 103 (100-108) mmol/L Carbon Dioxide 25 (21-32) mmol/L Anion Gap 11.9 (5.0-14.0) mmol/L BUN 7 D (7-18) mg/dL Creatinine 0.6 (0.6-1.0) mg/dL Est Cr Clr Drug Dosing 109.78 mL/min Estimated GFR (MDRD) > 60 (>60) Glucose 78 (74-106) mg/dL Lactic Acid 1.0 (0.4-2.0) mmol/L Calcium 8.8 (8.5-10.1) mg/dL Total Bilirubin 0.3 (0.2-1.0) mg/dL AST 24 (15-37) U/L ALT 26 (12-78) U/L Alkaline Phosphatase 70 (46-116) U/L Total Protein 7.2 (6.4-8.2) g/dL Albumin 3.7 (3.4-5.0) g/dL Globulin 3.5 (2.3-3.5) g/dL Albumin/Globulin Ratio 1.1 L (1.2-2.2) Lipase 104 (73-393) U/L Urine Color (YELLOW) Urine Appearance (CLEAR) Urine pH (5.0-8.0) Ur Specific [place] (1.008-1.030) Urine Protein (NEGATIVE) mg/dL Urine Glucose (UA) (NEGATIVE) mg/dL Urine Ketones (NEGATIVE) mg/dL Urine Occult Blood (NEGATIVE) Urine Nitrite (NEGATIVE) Urine Bilirubin (NEGATIVE) Urine Urobilinogen (0.2-1.0) EU/dL Ur Leukocyte Esterase (NEGATIVE) Urine RBC (0-5) Urine WBC (0-5) Ur Epithelial Cells Amorphous Sediment Urine Bacteria Urine Mucus 07/19/19 Range/Units 03:06 WBC (4.5-11.0) K/uL RBC (3.30-5.50) M/uL Hgb (12.0-15.0) g/dL Hct (36.0-48.0) % MCV (80-98) fL MCH (27-31) pg MCHC (32-36) % Plt Count (150-400) K/uL Neut % (Auto) (36-66) % Lymph % (Auto) (24-44) % [place] % (Auto) (2-6) % Eos % (Auto) (2-4) % Baso % (Auto) (0-1) % Sodium (140-148) mmol/L Potassium (3.6-5.2) mmol/L Chloride (100-108) mmol/L Carbon Dioxide (21-32) mmol/L Anion Gap (5.0-14.0) mmol/L BUN (7-18) mg/dL Creatinine (0.6-1.0) mg/dL Est Cr Clr Drug Dosing mL/min Estimated GFR (MDRD) (>60) Glucose (74-106) mg/dL Lactic Acid (0.4-2.0) mmol/L Calcium (8.5-10.1) mg/dL Total Bilirubin (0.2-1.0) mg/dL AST (15-37) U/L ALT (12-78) U/L Alkaline Phosphatase (46-116) U/L Total Protein (6.4-8.2) g/dL Albumin (3.4-5.0) g/dL Globulin (2.3-3.5) g/dL Albumin/Globulin Ratio (1.2-2.2) Lipase (73-393) U/L Urine Color Yellow (YELLOW) Urine Appearance Cloudy A (CLEAR) Urine pH 5.5 (5.0-8.0) Ur Specific [place] 1.025 (1.008-1.030) Urine Protein Negative (NEGATIVE) mg/dL Urine Glucose (UA) Negative (NEGATIVE) mg/dL Urine Ketones Negative (NEGATIVE) mg/dL Urine Occult Blood Negative (NEGATIVE) Urine Nitrite Negative (NEGATIVE) Urine Bilirubin Negative (NEGATIVE) Urine Urobilinogen 0.2 (0.2-1.0) EU/dL Ur Leukocyte Esterase Negative (NEGATIVE) Urine RBC 0-5 (0-5) Urine WBC 0-5 (0-5) Ur Epithelial Cells Many Amorphous Sediment Not seen Urine Bacteria Many Urine Mucus Many Meds: Medications Generic Name Dose Route Start Last Admin Trade Name Freq PRN Reason Stop Dose Admin Sodium Chloride 1,000 mls @ 500 mls/hr 07/19/19 02:30 07/19/19 02:49 Normal Saline IV 500 mls/hr ASDIRECTED BRYCE Administration Sodium Chloride 82 mls @ 3.5 mls/sec 07/19/19 02:45 07/19/19 03:16 Normal Saline IV 3.5 mls/sec ASDIRECTED BRYCE Administration Sodium Chloride 10 ml 07/19/19 02:25 07/19/19 04:16 Saline Flush FLUSH 10 ml ASDIRECTED PRN Administration Keep Vein Open Discontinued Medications Generic Name Dose Route Start Last Admin Trade Name Freq PRN Reason Stop Dose Admin Fentanyl 50 mcg 07/19/19 02:28 07/19/19 02:51 Sublimaze IVPUSH 07/19/19 02:29 50 mcg ONETIME ONE Administration Fentanyl 100 mcg 07/19/19 03:34 07/19/19 04:14 Sublimaze IVPUSH 07/19/19 03:35 100 mcg ONETIME ONE Administration Iopamidol 100 ml 07/19/19 02:38 07/19/19 03:16 Isovue-300 (61%) IV 07/19/19 02:39 100 ml . DIRECTED ONE Administration Ondansetron HCl 4 mg 07/19/19 02:28 07/19/19 02:50 Zofran IVPUSH 07/19/19 02:29 4 mg ONETIME ONE Administration Departure - Departure Time of Disposition: 05:31 Disposition: Home, Self-Care 01 Condition: Fair Clinical Impression: Abdominal pain Qualifiers: Abdominal location: right lower quadrant Qualified Code(s): R10.31 - Right lower quadrant pain - Discharge Information Referrals: Yessica Rubin, [employer] MANAGER [Primary Care Provider] - Forms: ED Department Discharge Additional Instructions: Use the Percocet as needed for pain control, recommend starting MiraLAX 1 capful per day until loose stools, a referral has been sent over to the clinic for an appointment time with Dr. Mcguire's group at 10 AM on Saturday. Please call to the [facility] on Saturday for the exact appointment time, call or return to the emergency department worsening of symptoms Sepsis Event Note - Evaluation Sepsis Screening Result: No Definite Risk - Focused Exam Vital Signs: Vital Signs Temp Pulse Resp BP Pulse Ox 07/19/19 02:23 97.8 F 42 L 16 111/72 97 07/19/19 02:20 97.8 F 42 L 16 111/72 97 Date Exam was Performed: 07/19/19 Time Exam was Performed: 05:29 - My Orders Last 24 Hours: My Active Orders 07/19/19 02:25 Sodium Chloride 0.9% [Saline Flush] 10 ml FLUSH ASDIRECTED PRN Peripheral IV Insertion Adult [OM.PC] Urgent 07/19/19 02:26 Peripheral IV Care [RC] . DIRECTED 07/19/19 02:30 Sodium Chloride 0.9% [Normal Saline] 1,000 ml IV ASDIRECTED 07/19/19 02:45 Sodium Chloride 0.9% [Normal Saline] 82 ml IV ASDIRECTED - Assessment/Plan Last 24 Hours: My Active Orders 07/19/19 02:25 Sodium Chloride 0.9% [Saline Flush] 10 ml FLUSH ASDIRECTED PRN Peripheral IV Insertion Adult [OM.PC] Urgent 07/19/19 02:26 Peripheral IV Care [RC] . DIRECTED 07/19/19 02:30 Sodium Chloride 0.9% [Normal Saline] 1,000 ml IV ASDIRECTED 07/19/19 02:45 Sodium Chloride 0.9% [Normal Saline] 82 ml IV ASDIRECTED Plan: Assessment Acuity = acute Site and laterality = right lower pelvic pain complicated the patient with history of gastric bypass Etiology = unknown Manifestations = none Location of injury = Home Lab values = CBC, CMP, urinalysis unremarkable CT scan does show possible fat necrosis with local cellulitis in the area of pain that she describes also in the area of her penectomy Plan Call discussed case with Dr. Mcguire at 525 recommended increased pain control follow-up with him in clinic tomorrow morning at 10:00, CT scan also describes large amount of stool in the colon recommended MiraLAX pain medication Percocet 5/325 1 tab p.o. 3 times daily as needed total #15 provided consultation written for clinic referral with Dr. Mcguire This note was dictated using [employer] voice recognition software please call with any questions on syntax or grammar.
[2019-07-19] MEDS ORDERED: Iopamidol 612 MG/ML 100 ML Bottle IV ONE (02:38)
--- NOTE | 2019-07-19 05:02 | CRLCT ---
INDICATION: Pelvic pain right-sided pelvic pain. TECHNIQUE: Contrast-enhanced CT abdomen pelvis 100 mL Isovue-300 coronal sagittal reformat images obtained. COMPARISON: No comparison studies are available. Findings: Heart size is normal. Lung bases are clear. No effusion. No pneumothorax. Gastric bypass change. Spleen adrenal glands, liver appears unremarkable. Cholecystectomy. Dilatation of the common bile duct which could be related to postcholecystectomy state. No abdominal aortic aneurysm. Kidneys are unremarkable. Normal appendix. Urinary bladder appears unremarkable. Large amount stool in the colon. The bowel is unremarkable. Hysterectomy. No suspicious bony lesions There is subcutaneous soft tissue stranding in the lower abdominal wall. This could be related to postsurgical changes/possible fat necrosis. Possible superimposed cellulitis could also be considered. Impression: 1. No acute findings in the abdomen or pelvis. Normal appendix. 2. Subcutaneous soft tissue stranding in the lower abdominal wall probably related to postsurgical /possible fat necrosis. Cellulitis could also be considered. This could be correlated clinically Please note that all CT scans at this facility use dose modulation, iterative reconstruction, and/or weight-based dosing when appropriate to reduce radiation dose to as low as reasonably achievable. Dictated by Candice Parsons MD @ Jul 19 2019 4:47AM Signed by Dr. Candice Parsons @ Jul 19 2019 5:00AM
== END 2019-07-19 05:49 | disposition home or self-care (01) ==
LOC: JP.ED 01:01
DX: R10.31 Right lower quadrant pain (principal); R10.2 Pelvic and perineal pain; J45.909 Unspecified asthma, uncomplicated; K21.9 Gastro-esophageal reflux disease without esophagitis; G43.909 Migraine, unspecified, not intractable, without status migrainosus; F41.9 Anxiety disorder, unspecified; Z88.0 Allergy status to penicillin; Z88.1 Allergy status to other antibiotic agents; Z79.899 Other long term (current) drug therapy; Z88.6 Allergy status to analgesic agent; Z90.49 Acquired absence of other specified parts of digestive tract
CPT/HCPCS: 36415; 74177; 80053; 81001; 83605; 83690; 85025; 96361; 96374; 96375; 96376; 99284; J2405; J3010; J7030; J7050; Q9967

== ENCOUNTER 2020-02-03 21:22 | Emergency (ER) | payer MEDICAID ==
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
[2020-02-03 22:41] VITALS: BP 126/78; PULSE 63
[2020-02-03] MEDS ORDERED: Ketorolac 30 MG/ML SDV IM ONE (22:50)
--- NOTE | 2020-02-04 10:10 | CR ---
CHEST: 2 view CLINICAL HISTORY:Chest pain COMPARISON:Chest CT 2020 FINDINGS: The heart size, pulmonary vascularity and hilar structures are normal. No infiltrate effusion or pneumothorax is seen. IMPRESSION: No acute cardiopulmonary process.
== END 2020-02-03 23:46 | disposition home or self-care (01) ==
LOC: JP.ED 21:22
DX: R07.89 Other chest pain (principal); J45.909 Unspecified asthma, uncomplicated; K21.9 Gastro-esophageal reflux disease without esophagitis; F41.9 Anxiety disorder, unspecified; F17.210 Nicotine dependence, cigarettes, uncomplicated; Z88.6 Allergy status to analgesic agent; Z88.1 Allergy status to other antibiotic agents; Z88.0 Allergy status to penicillin; Z79.899 Other long term (current) drug therapy
CPT/HCPCS: 36415; 71046; 80053; 84484; 85025; 93005; 96372; 99285; J1885; 93010; 99284

== ENCOUNTER 2020-03-10 06:54 | Emergency (ER) | payer MEDICAID ==
[2020-03-10 07:27] VITALS: BP 125/81; PULSE 68
[2020-03-10] MEDS ORDERED: Sodium Chloride 0.9% 10 ML Syringe FLUSH PRN (07:42)
[2020-03-10] MEDS ORDERED: fentaNYL 100 MCG/2 ML SDV IVPUSH ONE (07:42)
[2020-03-10] MEDS ORDERED: Sodium Chloride 0.9% 1,000 ML IV SCH (07:45)
--- NOTE | 2020-03-10 07:49 | EDM.PDOC ---
ED HPI GENERAL MEDICAL PROBLEM - General Chief Complaint: Respiratory Problem Stated Complaint: RIBS/HARD TIME BREATHING Time Seen by Provider: 03/10/20 07:31 Source of Information: Reports: Patient, Old Records, RN Notes Reviewed History Limitations: Reports: No Limitations - History of Present Illness INITIAL COMMENTS - FREE TEXT/NARRATIVE: 39-year-old female presents emergency department a complaint of right posterior chest wall pain, she fell at home hitting the corner of a piece of furniture on her right chest, she was evaluated in the clinic x-rays were performed did not appreciate any acute process, prescribed medication of Ultram which she has not taken because she does not like pain pills. She does have an allergy to NSAIDs per her report which caused anaphylaxis. She complains of shortness of breath no fevers no nausea or vomiting Right Pain Score (Numeric/FACES): 10 - Related Data Allergies Allergy/AdvReac Type Severity Reaction Status Date / Time aspirin Allergy Severe Anaphylactic Verified 03/10/20 07:21 Shock NSAIDS (Non-Steroidal Allergy Severe Anaphylactic Verified 03/10/20 07:21 Anti-Inflamma Shock levofloxacin Allergy Intermediate Difficulty Verified 03/10/20 07:21 Swallowing Penicillins Allergy Rash Verified 03/10/20 07:21 Home Meds: Home Meds Acetaminophen [Tylenol Arthritis] 650 mg PO ASDIRECTED PRN 02/19/16 [History] Pantoprazole 20 mg PO DAILY 10/14/16 [History] Albuterol [Ventolin HFA] 2 puff INH Q4H PRN 01/25/18 [History] Cholecalciferol (Vitamin D3) [Vitamin D3] 10,000 unit PO WEEKLY 01/25/18 [History] Cyanocobalamin (Vitamin B-12) [Cyanocobalamin Injection] 1,000 mcg IJ ASDIRECTED 01/25/18 [History] FLUoxetine HCl [Prozac] 60 mg PO DAILY 03/02/19 [History] Erenumab-Aooe [Aimovig Autoinjector] 70 mg SQ ASDIRECTED 05/15/19 [History] diazePAM [Valium] 5 mg PO ASDIRECTED PRN 07/19/19 [History] Doxepin HCl 3 mg PO ASDIRECTED 02/03/20 [History] Ubrogepant [Ubrelvy] 100 mg PO ASDIRECTED 02/03/20 [History] lamoTRIgine [Lamotrigine] 100 mg PO BID 02/03/20 [History] Albuterol Sulfate 2.5 mg IH ASDIRECTED 03/10/20 [History] Hydrocodone/Acetaminophen [Hydrocodon-Acetaminophen 5-325] 1 each PO TID PRN #10 tablet 03/10/20 [Rx] traMADol [Ultram] 50 mg PO Q6H PRN 03/10/20 [History] Past Medical History HEENT History: Reports: Allergic Rhinitis Other HEENT History: presnetly c/o of headache Respiratory History: Reports: Asthma Gastrointestinal History: Reports: GERD, Other (See Below) Other Gastrointestinal History: cervical steroid injections 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 Other ELECTRONIC TYPESETTING MACHINE OPERATOR History: R oophectomy Musculoskeletal History: Reports: Arthritis Other Musculoskeletal History: chronic shoulder and neck pain Neurological History: Reports: Migraines Psychiatric History: Reports: Anxiety, OCD, PTSD Hematologic History: Reports: B12 Deficiency, Iron Deficiency - Infectious Disease History Infectious Disease History: Reports: Chicken Pox - Past Surgical History GI Surgical History: Reports: Bariatric Procedure, Cholecystectomy, Hernia, Abdominal, Other (See Below) Other GI Surgeries/Procedures: pann on 02/19/2019 Female Surgical History: Reports: Endometrial Ablation, Hysterectomy Other Female Surgeries/Procedures: bilateral fallopian tubes removed and right ovary removed Neurological Surgical History: Reports: Spinal Fusion Musculoskeletal Surgical History: Reports: Other (See Below) Other Musculoskeletal Surgeries/Procedures:: Neck surgery [facility] [place]. Neck fusion in October 2016 Social & Family History - Family History Family Medical History: Noncontributory - Tobacco Use Smoking Status *Q: Current Every Day Smoker Years of Tobacco use: 20 Packs/Tins Daily: 0.5 - Caffeine Use Caffeine Use: Reports: Coffee - Recreational Drug Use Recreational Drug Use: No ED ROS GENERAL - Review of Systems Review Of Systems: See Below Constitutional: Reports: No Symptoms HEENT: Reports: No Symptoms Respiratory: Reports: Shortness of Breath Cardiovascular: Reports: Chest Pain GI/Abdominal: Reports: No Symptoms Musculoskeletal: Reports: Muscle Pain ED EXAM, GENERAL - Physical Exam Exam: See Below Exam Limited By: No Limitations General Appearance: Alert, WD/WN, No Apparent Distress Respiratory/Chest: No Respiratory Distress, Lungs Clear, Normal Breath Sounds, No Accessory Muscle Use, Other (Tenderness to palpation right side mid axillary line, no bruising no erythema noted) Cardiovascular: Regular Rate, Rhythm, No Murmur GI/Abdominal: Soft, Non-Tender Course - Vital Signs Last Recorded V/S: Last Vital Signs Temp 97.7 F 03/10/20 07:26 Pulse 68 03/10/20 07:26 Resp 20 03/10/20 07:26 BP 125/81 03/10/20 07:26 Pulse Ox 98 03/10/20 07:26 - Orders/Labs/Meds Orders: Active Orders 24 hr Category Date Time Status Peripheral IV Care [RC] . DIRECTED Care 03/10/20 07:43 Active Sodium Chloride 0.9% [Normal Saline] 1,000 ml Med 03/10/20 07:45 Active IV .BOLUS Sodium Chloride 0.9% [Normal Saline] 79 ml Med 03/10/20 08:00 Active IV ASDIRECTED Sodium Chloride 0.9% [Saline Flush] Med 03/10/20 07:42 Active 10 ml FLUSH ASDIRECTED PRN Peripheral IV Insertion Adult [OM.PC] Urgent Oth 03/10/20 07:42 Ordered Medication Orders Sodium Chloride (Normal Saline) 1,000 mls @ 500 mls/hr IV .BOLUS BRYCE Last Admin: 03/10/20 07:57 Dose: 500 mls/hr Documented by: AURELIANO Sodium Chloride (Normal Saline) 79 mls @ 3 mls/sec IV ASDIRECTED BRYCE Last Admin: 03/10/20 08:13 Dose: 3 mls/sec Documented by: DECRMIC Sodium Chloride (Saline Flush) 10 ml FLUSH ASDIRECTED PRN PRN Reason: Keep Vein Open Last Admin: 03/10/20 07:57 Dose: 10 ml Documented by: AURELIANO Labs: Laboratory Tests 03/10/20 03/10/20 Range/Units 08:04 08:04 WBC 7.5 (4.5-11.0) K/uL RBC 4.49 (3.30-5.50) M/uL Hgb 12.1 (12.0-15.0) g/dL Hct 38.0 (36.0-48.0) % MCV 85 (80-98) fL MCH 27 (27-31) pg MCHC 32 (32-36) % Plt Count 230 (150-400) K/uL Neut % (Auto) 52 (36-66) % Lymph % (Auto) 36 (24-44) % [place] % (Auto) 8 H (2-6) % Eos % (Auto) 4 (2-4) % Baso % (Auto) 0 (0-1) % Sodium 139 L (140-148) mmol/L Potassium 4.3 (3.6-5.2) mmol/L Chloride 102 (100-108) mmol/L Carbon Dioxide 27 (21-32) mmol/L Anion Gap 14.3 H (5.0-14.0) mmol/L BUN 16 (7-18) mg/dL Creatinine 0.9 (0.6-1.0) mg/dL Est Cr Clr Drug Dosing 72.47 mL/min Estimated GFR (MDRD) > 60 (>60) Glucose 86 (74-106) mg/dL Calcium 8.6 (8.5-10.1) mg/dL Meds: Medications Generic Name Dose Route Start Last Admin Trade Name Freq PRN Reason Stop Dose Admin Sodium Chloride 1,000 mls @ 500 mls/hr 03/10/20 07:45 03/10/20 07:57 Normal Saline IV 500 mls/hr .BOLUS BRYCE Administration Sodium Chloride 79 mls @ 3 mls/sec 03/10/20 08:00 03/10/20 08:13 Normal Saline IV 3 mls/sec ASDIRECTED BRYCE Administration Sodium Chloride 10 ml 03/10/20 07:42 03/10/20 07:57 Saline Flush FLUSH 10 ml ASDIRECTED PRN Administration Keep Vein Open Discontinued Medications Generic Name Dose Route Start Last Admin Trade Name Freq PRN Reason Stop Dose Admin Fentanyl 50 mcg 03/10/20 07:42 03/10/20 07:56 Sublimaze IVPUSH 03/10/20 07:43 50 mcg ONETIME ONE Administration Iopamidol 100 ml 03/10/20 07:57 03/10/20 08:15 Isovue-300 (61%) IV 03/10/20 07:58 100 ml . DIRECTED ONE Administration Departure - Departure Time of Disposition: 09:21 Disposition: Home, Self-Care 01 Condition: Poor Clinical Impression: Rib contusion Qualifiers: Encounter type: initial encounter Laterality: right Qualified Code(s): S20.211A - Contusion of right front wall of thorax, initial encounter - Discharge Information Prescriptions: Hydrocodone/Acetaminophen [Hydrocodon-Acetaminophen 5-325] 1 each PO TID PRN #10 tablet PRN Reason: Pain Referrals: Yessica Rubin TIP PRINTER [Primary Care Provider] - Forms: ED Department Discharge Additional Instructions: Use hydrocodone as needed for pain control, please followup with your primary care provider in 3-5 days if not better, please call return to the emergency department with worsening of symptoms. Sepsis Event Note (ED) - Evaluation Sepsis Screening Result: No Definite Risk - Focused Exam Vital Signs: Vital Signs Temp Pulse Resp BP Pulse Ox 03/10/20 07:26 97.7 F 68 20 125/81 98 - My Orders Last 24 Hours: My Active Orders 03/10/20 07:42 Sodium Chloride 0.9% [Saline Flush] 10 ml FLUSH ASDIRECTED PRN Peripheral IV Insertion Adult [OM.PC] Urgent 03/10/20 07:43 Peripheral IV Care [RC] . DIRECTED 03/10/20 07:45 Sodium Chloride 0.9% [Normal Saline] 1,000 ml IV .BOLUS 03/10/20 08:00 Sodium Chloride 0.9% [Normal Saline] 79 ml IV ASDIRECTED - Assessment/Plan Last 24 Hours: My Active Orders 03/10/20 07:42 Sodium Chloride 0.9% [Saline Flush] 10 ml FLUSH ASDIRECTED PRN Peripheral IV Insertion Adult [OM.PC] Urgent 03/10/20 07:43 Peripheral IV Care [RC] . DIRECTED 03/10/20 07:45 Sodium Chloride 0.9% [Normal Saline] 1,000 ml IV .BOLUS 03/10/20 08:00 Sodium Chloride 0.9% [Normal Saline] 79 ml IV ASDIRECTED Plan: Assessment Acuity = acute Site and laterality = rib contusion right side Etiology = secondary to trauma Manifestations = dyspnea Location of injury = Home Lab values = CBC bMP unremarkable, CT scan of the chest shows no acute process Plan She had some relief with fentanyl provided in the emergency department prescription written for hydrocodone 5/325 1 tab p.o. 3 times daily PRN total #10 follow-up primary care in 3 to 5 days if not better This note was dictated using [employer] voice recognition software please call with any questions on syntax or grammar.
[2020-03-10] MEDS ORDERED: Iopamidol 612 MG/ML 100 ML Bottle IV ONE (07:57)
--- NOTE | 2020-03-10 09:13 | CT ---
Chest w Cont CLINICAL HISTORY: Fall TECHNIQUE: Transverse scans were obtained from the thoracic inlet to the lung bases without contrast. Auto dosage reduction in intervertebral reconstruction techniques were employed COMPARISONS: 2017 FINDINGS: No pulmonary masses or infiltrates are seen. No mediastinal mass or suspicious lymphadenopathy is identified. No obvious filling defects are seen in the pulmonary arteries. There is no aortic aneurysm or dissection There are no pleural effusions. No fractures are seen. Patient has had previous bariatric surgery and cholecystectomy. IMPRESSION: Essentially negative CT chest
== END 2020-03-10 09:36 | disposition home or self-care (01) ==
LOC: JP.ED 06:54
DX: S20.211A Contusion of right front wall of thorax, initial encounter (principal); J45.909 Unspecified asthma, uncomplicated; F41.9 Anxiety disorder, unspecified; F17.210 Nicotine dependence, cigarettes, uncomplicated; K21.9 Gastro-esophageal reflux disease without esophagitis; Z88.6 Allergy status to analgesic agent; Z88.1 Allergy status to other antibiotic agents; Z88.0 Allergy status to penicillin; Z79.899 Other long term (current) drug therapy; W22.8XXA Striking against or struck by other objects, initial encounter; Y92.009 Unspecified place in unspecified non-institutional (private) residence as the place of occurrence of the external cause
CPT/HCPCS: 36415; 71260; 80048; 85025; 96361; 96374; 99284; J3010; J7030; J7050; Q9967

== ENCOUNTER 2020-04-20 12:05 | Emergency (ER) | payer MEDICAID ==
[2020-04-20 12:47] VITALS: BP 136/90; PULSE 79
--- NOTE | 2020-04-20 13:08 | EDM.PDOC ---
ED HPI GENERAL MEDICAL PROBLEM - General Chief Complaint: Respiratory Problem Stated Complaint: LUKASZ BEEN WITH PEOPLE WITH COVID Time Seen by Provider: 04/20/20 12:55 - History of Present Illness INITIAL COMMENTS - FREE TEXT/NARRATIVE: Is a 39-year-old female presenting to the ED for increased difficulty breathing, fever and chills, and cough. She was exposed to for family members who have tested positive for COVID-19 over the past week. The patient underwent curbside testing with [facility] on Saturday (2 days ago) but has not yet had her results. The patient does have a history significant for asthma and has been using her albuterol inhaler every 2 hours. In addition to the shortness of breath and cough, the patient also has a headache, body aches, fatigue, and decreased appetite. She denies any nausea, vomiting, or diarrhea. She denies a sore throat. She has been taking pseudoephedrine for nasal congestion. Severity: Moderate Improves with: Reports: None Worsens with: Reports: Movement Associated Symptoms: Reports: Cough, Fever/Chills, Headaches, Loss of Appetite, Malaise, Shortness of Breath - Related Data Allergies Allergy/AdvReac Type Severity Reaction Status Date / Time aspirin Allergy Severe Anaphylactic Verified 03/10/20 07:21 Shock NSAIDS (Non-Steroidal Allergy Severe Anaphylactic Verified 03/10/20 07:21 Anti-Inflamma Shock levofloxacin Allergy Intermediate Difficulty Verified 03/10/20 07:21 Swallowing Penicillins Allergy Rash Verified 03/10/20 07:21 Home Meds: Home Meds Acetaminophen [Tylenol Arthritis] 650 mg PO ASDIRECTED PRN 02/19/16 [History] Pantoprazole 20 mg PO DAILY 10/14/16 [History] Albuterol [Ventolin HFA] 2 puff INH Q4H PRN 01/25/18 [History] Cholecalciferol (Vitamin D3) [Vitamin D3] 10,000 unit PO WEEKLY 01/25/18 [History] Cyanocobalamin (Vitamin B-12) [Cyanocobalamin Injection] 1,000 mcg IJ ASDIRECTED 01/25/18 [History] FLUoxetine HCl [Prozac] 60 mg PO DAILY 03/02/19 [History] Erenumab-Aooe [Aimovig Autoinjector] 70 mg SQ ASDIRECTED 05/15/19 [History] diazePAM [Valium] 5 mg PO ASDIRECTED PRN 07/19/19 [History] Doxepin HCl 3 mg PO ASDIRECTED 02/03/20 [History] Ubrogepant [Ubrelvy] 100 mg PO ASDIRECTED 02/03/20 [History] lamoTRIgine [Lamotrigine] 100 mg PO BID 02/03/20 [History] Albuterol Sulfate 2.5 mg IH ASDIRECTED 03/10/20 [History] Hydrocodone/Acetaminophen [Hydrocodon-Acetaminophen 5-325] 1 each PO TID PRN #10 tablet 03/10/20 [Rx] traMADol [Ultram] 50 mg PO Q6H PRN 03/10/20 [History] Past Medical History HEENT History: Reports: Allergic Rhinitis Other HEENT History: presnetly c/o of headache Respiratory History: Reports: Asthma Gastrointestinal History: Reports: GERD, Other (See Below) Other Gastrointestinal History: cervical steroid injections 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 PARLIAMENTARY 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 History: R oophectomy Musculoskeletal History: Reports: Arthritis Other Musculoskeletal History: chronic shoulder and neck pain Neurological History: Reports: Migraines Psychiatric History: Reports: Anxiety, OCD, PTSD Hematologic History: Reports: B12 Deficiency, Iron Deficiency - Infectious Disease History Infectious Disease History: Reports: Chicken Pox - Past Surgical History GI Surgical History: Reports: Bariatric Procedure, Cholecystectomy, Hernia, Abdominal, Other (See Below) Other GI Surgeries/Procedures: pann on 02/19/2019 Female Surgical History: Reports: Endometrial Ablation, Hysterectomy Other Female Surgeries/Procedures: bilateral fallopian tubes removed and right ovary removed Neurological Surgical History: Reports: Spinal Fusion Musculoskeletal Surgical History: Reports: Other (See Below) Other Musculoskeletal Surgeries/Procedures:: Neck surgery Injections for [facility] in [place]. Neck fusion in October 2016 Social & Family History - Family History Family Medical History: Noncontributory - Caffeine Use Caffeine Use: Reports: Coffee - Recreational Drug Use Recreational Drug Use: No ED ROS GENERAL - Review of Systems Review Of Systems: See Below Constitutional: Reports: Fever, Chills, Malaise, Fatigue, Decreased Appetite HEENT: Reports: Rhinitis Respiratory: Reports: Shortness of Breath, Wheezing Cardiovascular: Reports: No Symptoms Endocrine: Reports: No Symptoms GI/Abdominal: Reports: No Symptoms : Reports: No Symptoms Musculoskeletal: Reports: Muscle Pain Skin: Reports: No Symptoms Neurological: Reports: Headache Psychiatric: Reports: No Symptoms Hematologic/Lymphatic: Reports: No Symptoms Immunologic: Reports: No Symptoms ED EXAM, GENERAL - Physical Exam Exam: See Below Exam Limited By: No Limitations General Appearance: Alert, Anxious, Moderate Distress Eye Exam: Bilateral Eye: EOMI, PERRL Nose: Nasal Swelling, Nasal Drainage Throat/Mouth: Normal Inspection, Normal Lips, Normal Teeth, Normal Gums, Normal Oropharynx, Normal Voice, No Airway Compromise Head: Atraumatic, Normocephalic Neck: Normal Inspection, Supple, Non-Tender, Full Range of Motion. No: Lymphadenopathy (R), Lymphadenopathy (L) Respiratory/Chest: No Respiratory Distress, No Accessory Muscle Use, Chest Non- Tender, Wheezing (Scant bilateral wheezes especially in the bases.) Cardiovascular: Normal Peripheral Pulses, Regular Rate, Rhythm, No Edema, No Gallop, No Murmur Peripheral Pulses: 2+: Radial (L), Radial (R) GI/Abdominal: Normal Bowel Sounds, Soft, Non-Tender, No Organomegaly, No Distention Back Exam: Normal Inspection, Full Range of Motion Extremities: Normal Inspection, Normal Range of Motion, Non-Tender, No Pedal Edema Neurological: Alert, Oriented, CN II-XII Intact, Normal Cognition, No Motor/Sensory Deficits Psychiatric: Normal Affect, Anxious Skin Exam: Warm, Dry, Intact Lymphatic: No Adenopathy Course - Vital Signs Last Recorded V/S: Last Vital Signs Temp 37.1 C 04/20/20 12:46 Pulse 79 04/20/20 12:46 Resp 16 04/20/20 12:46 BP 136/90 04/20/20 12:46 Pulse Ox 98 04/20/20 12:46 - Orders/Labs/Meds Labs: Laboratory Tests 04/20/20 04/20/20 04/20/20 Range/Units 13:08 13:08 16:39 WBC 5.5 (4.5-11.0) K/uL RBC 4.61 (3.30-5.50) M/uL Hgb 12.3 (12.0-15.0) g/dL Hct 38.8 (36.0-48.0) % MCV 84 (80-98) fL MCH 27 (27-31) pg MCHC 32 (32-36) % Plt Count 292 (150-400) K/uL Neut % (Auto) 40 (36-66) % Lymph % (Auto) 47 H (24-44) % [place] % (Auto) 9 H (2-6) % Eos % (Auto) 3 (2-4) % Baso % (Auto) 1 (0-1) % Sodium 137 L (140-148) mmol/L Potassium 3.9 (3.6-5.2) mmol/L Chloride 102 (100-108) mmol/L Carbon Dioxide 28 (21-32) mmol/L Anion Gap 10.9 (5.0-14.0) mmol/L BUN 13 (7-18) mg/dL Creatinine 0.9 (0.6-1.0) mg/dL Est Cr Clr Drug Dosing 78.56 mL/min Estimated GFR (MDRD) > 60 (>60) Glucose 93 (74-106) mg/dL Calcium 8.8 (8.5-10.1) mg/dL C-Reactive Protein 0.07 (0.0-0.3) mg/dL SARS-CoV-2 RNA (JUAN) Negative (NEGATIVE) Meds: Medications Discontinued Medications Generic Name Dose Route Start Last Admin Trade Name Freq PRN Reason Stop Dose Admin Acetaminophen 1,000 mg 04/20/20 16:16 04/20/20 16:35 Tylenol Extra Strength PO 04/20/20 16:17 1,000 mg ONETIME ONE Administration Departure - Departure Time of Disposition: 17:47 Disposition: Home, Self-Care 01 Condition: Good Clinical Impression: Acute viral syndrome - Discharge Information *PRESCRIPTION DRUG MONITORING PROGRAM REVIEWED*: Not Applicable *COPY OF PRESCRIPTION DRUG MONITORING REPORT IN PATIENT ANDRES: Not Applicable Instructions: Viral Illness, Adult Referrals: Yessica Rubin DIE CUTTING MACHINE OPERATOR [Primary Care Provider] - Forms: ED Department Discharge Care Plan Goals: I recommend fluids, rest, Tylenol or ibuprofen for the headache and body aches. Your COVID-19 test was negative. This may take 7 to 10 days to fully resolve. Please return to the ED for reevaluation if you develop any significant change in symptoms including shortness of breath, chest pain, back pain, nausea, vomiting, diarrhea or dizziness. Sepsis Event Note (ED) - Evaluation Sepsis Screening Result: No Definite Risk - Focused Exam Vital Signs: Vital Signs Temp Pulse Resp BP Pulse Ox 04/20/20 12:46 37.1 C 79 16 136/90 98 - Problem List & Annotations (1) Acute viral syndrome SNOMED Code(s): 441146859 Code(s): B34.9 - VIRAL INFECTION, UNSPECIFIED Status: Acute Priority: High Current Visit: Yes - Problem List Review Problem List Initiated/Reviewed/Updated: Yes - Assessment/Plan Plan: You have been diagnosed with an acute viral syndrome. I encourage you to push fluids to prevent dehydration, take Tylenol or ibuprofen for fever control and body aches, and rest. This may take 7 to 10 days to fully subside. You should refrain from contact with people with positive COVID-19 results in your family.
--- NOTE | 2020-04-20 14:42 | CR ---
CHEST: 2 view CLINICAL HISTORY:Cough, dyspnea COMPARISON:CT March 13, 2020 FINDINGS: The heart size, pulmonary vascularity and hilar structures are normal. No infiltrate effusion or pneumothorax is seen. IMPRESSION: No acute cardiopulmonary process
[2020-04-20] MEDS ORDERED: Acetaminophen 500 MG Tab PO ONE (16:16)
== END 2020-04-20 17:55 | disposition home or self-care (01) ==
LOC: JP.ED 12:05
DX: B34.9 Viral infection, unspecified (principal); J45.909 Unspecified asthma, uncomplicated; K21.9 Gastro-esophageal reflux disease without esophagitis; F41.9 Anxiety disorder, unspecified; Z79.899 Other long term (current) drug therapy; Z20.828 Contact with and (suspected) exposure to other viral communicable diseases; Z88.6 Allergy status to analgesic agent; Z88.8 Allergy status to other drugs, medicaments and biological substances; Z88.1 Allergy status to other antibiotic agents; Z88.0 Allergy status to penicillin
CPT/HCPCS: 36415; 71046; 80048; 85025; 86140; 87635; 99285; A9270; U0002

== ENCOUNTER 2020-09-20 08:38 | Emergency (ER) | payer MEDICAID ==
[2020-09-20 08:50] VITALS: BP 125/53; PULSE 76
[2020-09-20] MEDS ORDERED: Sodium Chloride 0.9% 1,000 ML IV STA (09:16)
[2020-09-20] MEDS ORDERED: Sodium Chloride 0.9% 10 ML Syringe FLUSH PRN ×2 (09:16→09:44)
--- NOTE | 2020-09-20 09:18 | EDM.PDOC ---
ED HPI GENERAL MEDICAL PROBLEM - General Chief Complaint: Abdominal Pain Stated Complaint: STOMACH PAIN, VOMITING, CONSTIPATION Time Seen by Provider: 09/20/20 09:05 Source of Information: Reports: Patient, RN Notes Reviewed History Limitations: Reports: No Limitations - History of Present Illness INITIAL COMMENTS - FREE TEXT/NARRATIVE: 39-year-old female presents emergency department today with concern about drainage from her bellybutton. She does have a history of umbilical hernia repair done in 2019. She states she is doing fine with this surgery however over the last 3 to 4 days she has noticed some foul-smelling drainage coming from her umbilicus. No fevers no abdominal pain no nausea or vomiting Abdomen Pain Score (Numeric/FACES): 9 - Related Data Allergies Allergy/AdvReac Type Severity Reaction Status Date / Time aspirin Allergy Severe Anaphylactic Verified 03/10/20 07:21 Shock NSAIDS (Non-Steroidal Allergy Severe Anaphylactic Verified 03/10/20 07:21 Anti-Inflamma Shock levofloxacin Allergy Intermediate Difficulty Verified 03/10/20 07:21 Swallowing Penicillins Allergy Rash Verified 03/10/20 07:21 Home Meds: Home Meds Acetaminophen [Tylenol Arthritis] 650 mg PO ASDIRECTED PRN 02/19/16 [History] Pantoprazole 20 mg PO DAILY 10/14/16 [History] Albuterol [Ventolin HFA] 2 puff INH Q4H PRN 01/25/18 [History] Cyanocobalamin (Vitamin B-12) [Cyanocobalamin Injection] 1,000 mcg IJ ASDIRECTED 01/25/18 [History] FLUoxetine HCl [Prozac] 60 mg PO DAILY 03/02/19 [History] Erenumab-Aooe [Aimovig Autoinjector] 70 mg SQ ASDIRECTED 05/15/19 [History] diazePAM [Valium] 5 mg PO ASDIRECTED PRN 07/19/19 [History] Ubrogepant [Ubrelvy] 100 mg PO ASDIRECTED 02/03/20 [History] lamoTRIgine [Lamotrigine] 100 mg PO BID 02/03/20 [History] Albuterol Sulfate 2.5 mg IH ASDIRECTED 03/10/20 [History] Folic Acid 1 mg PO DAILY 09/20/20 [History] Iron 65 mg PO DAILY 09/20/20 [History] Naltrexone 50 mg PO DAILY 09/20/20 [History] Thiamine Mononitrate (Vit B1) [Vitamin B-1] 100 mg PO DAILY 09/20/20 [History] buPROPion HCL [Bupropion Xl] 150 mg PO BID 09/20/20 [History] Past Medical History HEENT History: Reports: Allergic Rhinitis Other HEENT History: presnetly c/o of headache Respiratory History: Reports: Asthma Gastrointestinal History: Reports: GERD, Other (See Below) Other Gastrointestinal History: cervical steroid injections BASKET PERSON History: Reports: Endometrial Ablation Other BASKET PERSON History: R oophectomy Musculoskeletal History: Reports: Arthritis Other Musculoskeletal History: chronic shoulder and neck pain Neurological History: Reports: Migraines Psychiatric History: Reports: Anxiety, OCD, PTSD Hematologic History: Reports: B12 Deficiency, Iron Deficiency - Infectious Disease History Infectious Disease History: Reports: Chicken Pox - Past Surgical History HEENT Surgical History: Reports: Adenoidectomy, Tonsillectomy GI Surgical History: Reports: Bariatric Procedure, Cholecystectomy, Hernia, Abdominal, Other (See Below) Other GI Surgeries/Procedures: pann on 02/19/2019 Female Surgical History: Reports: Endometrial Ablation, Hysterectomy Other Female Surgeries/Procedures: bilateral fallopian tubes removed and right ovary removed Neurological Surgical History: Reports: Spinal Fusion Musculoskeletal Surgical History: Reports: Other (See Below) Other Musculoskeletal Surgeries/Procedures:: Neck surgery Injections for pain [facility] in [place]. Neck fusion in October 2016 Social & Family History - Family History Family Medical History: No Pertinent Family History - Tobacco Use Tobacco Use Status *Q: Former Tobacco User Used Tobacco, but Quit: Yes Month/Year Tobacco Last Used: years ago - Caffeine Use Caffeine Use: Reports: Coffee - Recreational Drug Use Recreational Drug Use: No ED ROS GENERAL - Review of Systems Review Of Systems: See Below Constitutional: Denies: Fever, Chills HEENT: Reports: No Symptoms Respiratory: Reports: No Symptoms Cardiovascular: Reports: No Symptoms GI/Abdominal: Reports: Other (Drainage from umbilicus). Denies: Abdominal Pain, Nausea, Vomiting ED EXAM, GI/ABD - Physical Exam Exam: See Below Exam Limited By: No Limitations General Appearance: Alert, WD/WN, No Apparent Distress Respiratory/Chest: No Respiratory Distress GI/Abdominal Exam: Normal Bowel Sounds, Soft, Tender (Around umbilicus) Course - Vital Signs Last Recorded V/S: Last Vital Signs Temp 97.8 F 09/20/20 08:56 Pulse 76 09/20/20 08:56 Resp 16 09/20/20 08:56 BP 125/53 L 09/20/20 08:56 Pulse Ox 100 09/20/20 08:56 - Orders/Labs/Meds Orders: Active Orders 24 hr Category Date Time Status Peripheral IV Care [RC] . DIRECTED Care 09/20/20 09:16 Active Iopamidol [Isovue-300 (61%)] Med 09/20/20 09:45 Active 146 ml IV . DIRECTED Sodium Chloride 0.9% [Saline Flush] Med 09/20/20 09:16 Active 10 ml FLUSH ASDIRECTED PRN Sodium Chloride 0.9% [Saline Flush] Med 09/20/20 09:44 Active 10 ml FLUSH ONETIME PRN Peripheral IV Insertion Adult [OM.PC] Urgent Oth 09/20/20 09:16 Ordered Medication Orders Iopamidol (Iopamidol 612 Mg/Ml 150 Ml Bottle) 146 ml IV . DIRECTED BRYCE Last Admin: 09/20/20 09:54 Dose: 146 ml Documented by: GEORGI Sodium Chloride (Sodium Chloride 0.9% 10 Ml Syringe) 10 ml FLUSH ASDIRECTED PRN PRN Reason: Keep Vein Open Last Admin: 09/20/20 09:27 Dose: 10 ml Documented by: LYNDA Sodium Chloride (Sodium Chloride 0.9% 10 Ml Syringe) 10 ml FLUSH ONETIME PRN PRN Reason: PER RADIOLOGY PROTOCOL Last Admin: 09/20/20 09:54 Dose: 10 ml Documented by: GEORGI Labs: Laboratory Tests 09/20/20 09/20/20 09/20/20 Range/Units 09:25 09:25 09:25 WBC 5.9 (4.5-11.0) K/uL RBC 4.50 (3.30-5.50) M/uL Hgb 12.4 (12.0-15.0) g/dL Hct 39.1 (36.0-48.0) % MCV 87 (80-98) fL MCH 28 (27-31) pg MCHC 32 (32-36) % Plt Count 284 (150-400) K/uL Neut % (Auto) 61 (36-66) % Lymph % (Auto) 28 (24-44) % [place] % (Auto) 10 H (2-6) % Eos % (Auto) 2 (2-4) % Baso % (Auto) 1 (0-1) % Sodium 139 L (140-148) mmol/L Potassium 4.9 (3.6-5.2) mmol/L Chloride 103 (100-108) mmol/L Carbon Dioxide 26 (21-32) mmol/L Anion Gap 14.9 H (5.0-14.0) mmol/L BUN 10 (7-18) mg/dL Creatinine 1.0 (0.6-1.0) mg/dL Est Cr Clr Drug Dosing 67.96 mL/min Estimated GFR (MDRD) > 60 (>60) Glucose 79 (74-106) mg/dL Lactic Acid 0.8 (0.4-2.0) mmol/L Calcium 8.8 (8.5-10.1) mg/dL Total Bilirubin 0.3 (0.2-1.0) mg/dL AST 23 (15-37) U/L ALT 22 (12-78) U/L Alkaline Phosphatase 80 (46-116) U/L Total Protein 7.1 (6.4-8.2) g/dL Albumin 3.6 (3.4-5.0) g/dL Globulin 3.5 (2.3-3.5) g/dL Albumin/Globulin Ratio 1.0 L (1.2-2.2) Meds: Medications Generic Name Dose Route Start Last Admin Trade Name Freq PRN Reason Stop Dose Admin Iopamidol 146 ml 09/20/20 09:45 09/20/20 09:54 Iopamidol 612 Mg/Ml 150 Ml Bottle IV 146 ml . DIRECTED BRYCE Administration Sodium Chloride 10 ml 09/20/20 09:16 09/20/20 09:27 Sodium Chloride 0.9% 10 Ml Syringe FLUSH 10 ml ASDIRECTED PRN Administration Keep Vein Open Sodium Chloride 10 ml 09/20/20 09:44 09/20/20 09:54 Sodium Chloride 0.9% 10 Ml Syringe FLUSH 10 ml ONETIME PRN Administration PER RADIOLOGY PROTOCOL Discontinued Medications Generic Name Dose Route Start Last Admin Trade Name Freq PRN Reason Stop Dose Admin Sodium Chloride 1,000 mls @ 500 mls/hr 09/20/20 09:16 09/20/20 10:02 Normal Saline IV 09/20/20 11:15 500 mls/hr .BOLUS STA Administration Sodium Chloride 84 mls @ 3 mls/sec 09/20/20 09:44 09/20/20 09:54 Normal Saline IV 09/20/20 09:45 3 mls/sec ONETIME ONE Administration Departure - Departure Time of Disposition: 11:45 Disposition: Home, Self-Care 01 Condition: Fair Clinical Impression: Functional constipation, Drainage from surgical wound - Discharge Information Instructions: Constipation, Adult Referrals: Yessica Rubin ENVIRONMENTAL PROTECTION INSPECTOR [Primary Care Provider] - Forms: ED Department Discharge Additional Instructions: Plan is to see Dr. Mcguire tomorrow in clinic, recommend trying MiraLAX for constipation call return to the emergency department worsening of symptoms Sepsis Event Note (ED) - Evaluation Sepsis Screening Result: No Definite Risk - Focused Exam Vital Signs: Vital Signs Temp Pulse Resp BP Pulse Ox 09/20/20 08:56 97.8 F 76 16 125/53 L 100 09/20/20 08:48 97.8 F 76 16 125/53 L 100 - My Orders Last 24 Hours: My Active Orders 09/20/20 09:16 Peripheral IV Care [RC] . DIRECTED Sodium Chloride 0.9% [Saline Flush] 10 ml FLUSH ASDIRECTED PRN Peripheral IV Insertion Adult [OM.PC] Urgent 09/20/20 09:44 Sodium Chloride 0.9% [Saline Flush] 10 ml FLUSH ONETIME PRN 09/20/20 09:45 Iopamidol [Isovue-300 (61%)] 146 ml IV . DIRECTED - Assessment/Plan Last 24 Hours: My Active Orders 09/20/20 09:16 Peripheral IV Care [RC] . DIRECTED Sodium Chloride 0.9% [Saline Flush] 10 ml FLUSH ASDIRECTED PRN Peripheral IV Insertion Adult [OM.PC] Urgent 09/20/20 09:44 Sodium Chloride 0.9% [Saline Flush] 10 ml FLUSH ONETIME PRN 09/20/20 09:45 Iopamidol [Isovue-300 (61%)] 146 ml IV . DIRECTED Plan: Assessment Acuity = acute Site and laterality = drainage from the umbilicus, functional constipation Etiology = unknown reason for the drainage, slow transit time for the constipation Manifestations = none Location of injury = Home Lab values = CBC CMP lactic acid within normal limits CT scan describes mild soft tissue fullness and some enhancement around the umbilicus superficial in the abdominal wall no fistula identified moderate amount of stool in the colon Plan Call discussed case Dr. Mcguire at 1141 he kindly agreed to see the patient in clinic tomorrow we will obtain the records from her umbilical hernia repair for constipation recommend MiraLAX This note was dictated using [employer] voice recognition software please call with any questions on syntax or grammar.
[2020-09-20] MEDS ORDERED: Iopamidol 612 MG/ML 150 ML Bottle IV SCH (09:45)
--- NOTE | 2020-09-20 11:20 | CT ---
Abdomen Pelvis w Cont CLINICAL HISTORY: Drainage from umbilicus COMPARISON: October 2019. TECHNIQUE: Transverse scans were obtained from the base of the lungs to the pubic symphysis following oral contrast and IV infusion of contrast.Auto dosage reduction and iterative reconstructiontechniques employed. FINDINGS: The lung bases are clear. Patient has had previous gastric surgery with [id number] The liver shows some diffuse fatty infiltration. No masses seen.. The gallbladder has been removed. The spleen has a normal size and shape. There is a subcentimeter splenule medially. The pancreas shows no mass or inflammatory change. The adrenal glands appear normal bilaterally . The kidneys show no mass, stones or hydronephrosis. The ureters have a normal course and caliber. The bladder has normal contour. The uterus is absent. There is a prominent left ovary. There is a area of ringlike enhancement in the posterior ovary which is similar to the 2020 study. There is some irregular enhancement anteriorly also unchanged.. The aorta has a normal contour. There is no suspicious retroperitoneal adenopathy. The small intestinal configuration is nonacute. There is gas and feces throughout the colon. Scans through the periumbilical region show a normal abdominal wall and free peritoneal fat. There is some mild thickening of the soft tissues of the umbilicus with some minimal enhancement. This may be a slight change from the prior study. No fistulous tract is identified. IMPRESSION: Mild soft tissue fullness and some enhancement suggested at the umbilicus superficial to the abdominal wall. No fistulous tract is identified. There is no inflammatory change in the preperitoneal fat. Previous bariatric surgery Prominent left ovary. Size is similar to multiple previous studies. There is a focus of irregular shaped ringlike enhancement. This is similar to prior study but diameter has decreased. Findings should be correlated with pelvic ultrasound.
== END 2020-09-20 12:02 | disposition home or self-care (01) ==
LOC: JP.ED 08:38
DX: L76.82 Other postprocedural complications of skin and subcutaneous tissue (principal); K59.04 Chronic idiopathic constipation; J45.909 Unspecified asthma, uncomplicated; K21.9 Gastro-esophageal reflux disease without esophagitis; Z88.6 Allergy status to analgesic agent; Z88.1 Allergy status to other antibiotic agents; Z88.0 Allergy status to penicillin; Z88.8 Allergy status to other drugs, medicaments and biological substances; Z79.899 Other long term (current) drug therapy; Z87.891 Personal history of nicotine dependence
CPT/HCPCS: 36415; 74177; 74177-26; 80053; 83605; 85025; 99283; 99284-25; J7030; Q9967

== ENCOUNTER 2020-09-28 08:57 | Emergency (ER) | payer MEDICAID ==
[2020-09-28 09:11] VITALS: BP 145/92; PULSE 85
[2020-09-28] MEDS ORDERED: LORazepam 0.5 MG Tab PO ONE (09:47)
--- NOTE | 2020-09-28 09:50 | EDM.PDOC ---
ED HPI GENERAL MEDICAL PROBLEM - General Chief Complaint: Neuro Symptoms/Deficits Stated Complaint: POSSIBLE CONCUSSION Time Seen by Provider: 09/28/20 09:25 Source of Information: Reports: Patient, Family, RN Notes Reviewed History Limitations: Reports: No Limitations - History of Present Illness INITIAL COMMENTS - FREE TEXT/NARRATIVE: 39-year-old female presents emergency department today following an event she had last evening this was unwitnessed she is unsure of exactly what happened she has had a loss of memory from last night through this morning she admits to being somewhat confused and foggy this morning. She does have a new bruise near her left thigh as well as a tongue bruise consistent with a bite she does not recall. She has no history of seizures no history of transient global amnesia she admits to using alcohol in the past 6 months heavy at times she is currently working with her primary care with naltrexone she does admit to having to alcoholic beverages yesterday around 6:00. At this time she is complaining of headache pain around her left eye very anxious and feeling foggy in her mentation - Related Data Allergies Allergy/AdvReac Type Severity Reaction Status Date / Time aspirin Allergy Severe Anaphylactic Verified 09/28/20 09:07 Shock NSAIDS (Non-Steroidal Allergy Severe Anaphylactic Verified 09/28/20 09:07 Anti-Inflamma Shock levofloxacin Allergy Intermediate Difficulty Verified 09/28/20 09:07 Swallowing Penicillins Allergy Rash Verified 09/28/20 09:07 Home Meds: Home Meds Acetaminophen [Tylenol Arthritis] 650 mg PO ASDIRECTED PRN 02/19/16 [History] Pantoprazole 20 mg PO DAILY 10/14/16 [History] Albuterol [Ventolin HFA] 2 puff INH Q4H PRN 01/25/18 [History] Cyanocobalamin (Vitamin B-12) [Cyanocobalamin Injection] 1,000 mcg IJ ASDIRECTED 01/25/18 [History] FLUoxetine HCl [Prozac] 60 mg PO DAILY 03/02/19 [History] Erenumab-Aooe [Aimovig Autoinjector] 70 mg SQ ASDIRECTED 05/15/19 [History] diazePAM [Valium] 5 mg PO ASDIRECTED PRN 07/19/19 [History] Ubrogepant [Ubrelvy] 100 mg PO ASDIRECTED 02/03/20 [History] lamoTRIgine [Lamotrigine] 100 mg PO BID 02/03/20 [History] Albuterol Sulfate 2.5 mg IH ASDIRECTED 03/10/20 [History] Folic Acid 1 mg PO DAILY 09/20/20 [History] Iron 65 mg PO DAILY 09/20/20 [History] Naltrexone 50 mg PO DAILY 09/20/20 [History] Thiamine Mononitrate (Vit B1) [Vitamin B-1] 100 mg PO DAILY 09/20/20 [History] buPROPion HCL [Bupropion Xl] 150 mg PO BID 09/20/20 [History] Naltrexone 50 mg PO DAILY 09/28/20 [History] Past Medical History HEENT History: Reports: Allergic Rhinitis Other HEENT History: presnetly c/o of headache Respiratory History: Reports: Asthma Gastrointestinal History: Reports: GERD, Other (See Below) Other Gastrointestinal History: cervical steroid injections Genitourinary History: Reports: None FABRICATION SUPERVISOR History: Reports: Endometrial Ablation Other FABRICATION SUPERVISOR History: R oophectomy Musculoskeletal History: Reports: Arthritis Other Musculoskeletal History: chronic shoulder and neck pain Neurological History: Reports: Migraines Psychiatric History: Reports: Anxiety, OCD, PTSD Endocrine/Metabolic History: Reports: Obesity/BMI 30+ Hematologic History: Reports: B12 Deficiency, Iron Deficiency - Infectious Disease History Infectious Disease History: Reports: Chicken Pox - Past Surgical History Head Surgeries/Procedures: Reports: None HEENT Surgical History: Reports: Adenoidectomy, Tonsillectomy Respiratory Surgical History: Reports: None GI Surgical History: Reports: Bariatric Procedure, Cholecystectomy, Hernia, Abdominal, Other (See Below) Other GI Surgeries/Procedures: pann on 02/19/2019 Female Surgical History: Reports: Endometrial Ablation, Hysterectomy Other Female Surgeries/Procedures: bilateral fallopian tubes removed and right ovary removed Endocrine Surgical History: Reports: None Neurological Surgical History: Reports: Spinal Fusion Musculoskeletal Surgical History: Reports: Other (See Below) Other Musculoskeletal Surgeries/Procedures:: Neck surgery Injections for pain [facility] in [place]. Neck fusion in October 2016 Dermatological Surgical History: Reports: None Social & Family History - Family History Family Medical History: No Pertinent Family History - Tobacco Use Tobacco Use Status *Q: Never Tobacco User - Caffeine Use Caffeine Use: Reports: Coffee - Recreational Drug Use Recreational Drug Use: No ED ROS GENERAL - Review of Systems Review Of Systems: See Below Constitutional: Reports: No Symptoms HEENT: Reports: No Symptoms Respiratory: Reports: No Symptoms Cardiovascular: Reports: No Symptoms GI/Abdominal: Reports: No Symptoms Musculoskeletal: Reports: No Symptoms Skin: Reports: Bruising Neurological: Reports: Confusion, Headache ED EXAM, NEURO - Physical Exam Exam: See Below Text/Narrative:: Cranial nerves II test with pupillary light reflex 5 mm to 3 mm bilaterally, CN III test pupillary constriction, lid elevation and eye abduction bilaterally, CN IV downward movement of eyes bilaterally, CN V good jaw movement, CN lateral deviation of the eyes bilaterally to finger movement, CN VII symmetrical smile shows teeth without difficulty, CN VIII pass finger rub to ears bilaterally, CN IX adequate voice and tone, CN X adequate voice and tone no difficulty swallowing, CN XI can shrug shoulders without difficulty, CN XII can stick tongue out without difficulty, cranial nerves II to XII intact as tested, power is 5 out 5 in upper and lower extremities, patellar reflex, biceps reflex +2 can do finger to nose without difficulty, no dysdiadochokinesis, no difficulty with rapid alternating movements can do curc-lc-[id number] without difficulty, Romberg is negative, has adequate gait can do heel to toe, can toe walk and heel walk no cerebellar dysfunction can do duck walk without difficulty, no focal neurologic deficit Exam Limited By: No Limitations General Appearance: Alert, WD/WN, No Apparent Distress Throat/Mouth: No Airway Compromise Respiratory/Chest: No Respiratory Distress Course - Vital Signs Last Recorded V/S: Last Vital Signs Temp 97.7 F 09/28/20 09:18 Pulse 85 09/28/20 09:18 Resp 16 09/28/20 09:18 BP 145/92 H 09/28/20 09:18 Pulse Ox 98 09/28/20 09:18 - Orders/Labs/Meds Labs: Laboratory Tests 09/28/20 09/28/20 09/28/20 Range/Units 09:48 10:37 10:37 WBC 5.1 (4.5-11.0) K/uL RBC 4.50 (3.30-5.50) M/uL Hgb 12.2 (12.0-15.0) g/dL Hct 39.7 (36.0-48.0) % MCV 88 (80-98) fL MCH 27 (27-31) pg MCHC 31 L (32-36) % Plt Count 224 (150-400) K/uL Neut % (Auto) 57 (36-66) % Lymph % (Auto) 29 (24-44) % [place] % (Auto) 7 H (2-6) % Eos % (Auto) 6 H (2-4) % Baso % (Auto) 0 (0-1) % Sodium 142 (140-148) mmol/L Potassium 4.8 (3.6-5.2) mmol/L Chloride 105 (100-108) mmol/L Carbon Dioxide 26 (21-32) mmol/L Anion Gap 11.2 (5.0-14.0) mmol/L BUN 12 (7-18) mg/dL Creatinine 0.9 (0.6-1.0) mg/dL Est Cr Clr Drug Dosing 72.47 mL/min Estimated GFR (MDRD) > 60 (>60) Glucose 76 (74-106) mg/dL Lactic Acid (0.4-2.0) mmol/L Calcium 8.3 L (8.5-10.1) mg/dL Total Bilirubin 0.1 L D (0.2-1.0) mg/dL AST 28 (15-37) U/L ALT 30 (12-78) U/L Alkaline Phosphatase 80 (46-116) U/L Troponin I < 0.017 (0.000-0.056) ng/mL Total Protein 7.1 (6.4-8.2) g/dL Albumin 3.6 (3.4-5.0) g/dL Globulin 3.5 (2.3-3.5) g/dL Albumin/Globulin Ratio 1.0 L (1.2-2.2) Urine Opiates Screen Negative (NEGATIVE) Ur Oxycodone Screen Presumptive positive H (NEGATIVE) Urine Methadone Screen Negative (NEGATIVE) Ur Propoxyphene Screen Negative (NEGATIVE) Ur Barbiturates Screen Negative (NEGATIVE) Ur Tricyclics Screen Negative (NEGATIVE) Ur Phencyclidine Scrn Negative (NEGATIVE) Ur Amphetamine Screen Negative (NEGATIVE) U Methamphetamines Scrn Negative (NEGATIVE) Urine MDMA Screen Negative (NEGATIVE) U Benzodiazepines Scrn Presumptive positive H (NEGATIVE) U Cocaine Metab Screen Negative (NEGATIVE) U Marijuana (THC) Screen Negative (NEGATIVE) Ethyl Alcohol mg/dL 09/28/20 09/28/20 Range/Units 10:37 10:37 WBC (4.5-11.0) K/uL RBC (3.30-5.50) M/uL Hgb (12.0-15.0) g/dL Hct (36.0-48.0) % MCV (80-98) fL MCH (27-31) pg MCHC (32-36) % Plt Count (150-400) K/uL Neut % (Auto) (36-66) % Lymph % (Auto) (24-44) % [place] % (Auto) (2-6) % Eos % (Auto) (2-4) % Baso % (Auto) (0-1) % Sodium (140-148) mmol/L Potassium (3.6-5.2) mmol/L Chloride (100-108) mmol/L Carbon Dioxide (21-32) mmol/L Anion Gap (5.0-14.0) mmol/L BUN (7-18) mg/dL Creatinine (0.6-1.0) mg/dL Est Cr Clr Drug Dosing mL/min Estimated GFR (MDRD) (>60) Glucose (74-106) mg/dL Lactic Acid 1.2 (0.4-2.0) mmol/L Calcium (8.5-10.1) mg/dL Total Bilirubin (0.2-1.0) mg/dL AST (15-37) U/L ALT (12-78) U/L Alkaline Phosphatase (46-116) U/L Troponin I (0.000-0.056) ng/mL Total Protein (6.4-8.2) g/dL Albumin (3.4-5.0) g/dL Globulin (2.3-3.5) g/dL Albumin/Globulin Ratio (1.2-2.2) Urine Opiates Screen (NEGATIVE) Ur Oxycodone Screen (NEGATIVE) Urine Methadone Screen (NEGATIVE) Ur Propoxyphene Screen (NEGATIVE) Ur Barbiturates Screen (NEGATIVE) Ur Tricyclics Screen (NEGATIVE) Ur Phencyclidine Scrn (NEGATIVE) Ur Amphetamine Screen (NEGATIVE) U Methamphetamines Scrn (NEGATIVE) Urine MDMA Screen (NEGATIVE) U Benzodiazepines Scrn (NEGATIVE) U Cocaine Metab Screen (NEGATIVE) U Marijuana (THC) Screen (NEGATIVE) Ethyl Alcohol < 3 mg/dL Meds: Medications Discontinued Medications Generic Name Dose Route Start Last Admin Trade Name Ervin PRN Reason Stop Dose Admin Lorazepam 0.5 mg 09/28/20 09:47 09/28/20 09:51 Lorazepam 0.5 Mg Tab PO 09/28/20 09:48 0.5 mg ONETIME ONE Administration Departure - Departure Time of Disposition: 11:25 Disposition: Home, Self-Care 01 Condition: Fair Clinical Impression: Seizure-like activity - Discharge Information Instructions: Non-Epileptic Seizures, Adult Referrals: Yessica Rubin LOOM FIXER APPRENTICE [Primary Care Provider] - Forms: ED Department Discharge Additional Instructions: Continue with your current medications, please follow-up with your primary care for further evaluation next 3 to 5 days recommend review of medication list call return to the emergency department worsening of symptoms Sepsis Event Note (ED) - Evaluation Sepsis Screening Result: No Definite Risk - Focused Exam Vital Signs: Vital Signs Temp Pulse Resp BP Pulse Ox 09/28/20 09:18 97.7 F 85 16 145/92 H 98 09/28/20 09:10 97.7 F 85 16 145/92 H 98 - Assessment/Plan Plan: Assessment Acuity = acute Site and laterality = seizure-like activity Etiology = unknown Manifestations = none Location of injury = Home Lab values = CBC CMP unremarkable urine positive for opiates and benzodiazepines, CT scan head and maxillofacial bones show no acute process Plan I did review lab work with parent including the positive opiates which she declines however combination of opiate and naloxone could cause any adverse reaction vascular follow-up with your primary care for further evaluation This note was dictated using [employer] voice recognition software please call with any questions on syntax or grammar.
--- NOTE | 2020-09-28 10:53 | CT ---
Head wo Cont CLINICAL HISTORY: Seizure-like activity COMPARISON: 2017 TECHNIQUE: Transverse scans were obtained from the base of the skull through the vertex without IV contrast on a multislice, multidetector CT scanner. Auto dosage reduction and iterative reconstruction techniques employed. FINDINGS: No focal abnormal parenchymal densities are identified. There is no mass effect, hemorrhage, or extraaxial collection. The basal cisterns and sulci over the convexities are normal. The ventricles are normal. IMPRESSION: No acute intracranial process
--- NOTE | 2020-09-28 11:12 | CT ---
Max Facial Sinus wo Cont CLINICAL HISTORY: Trauma left orbit TECHNIQUE: Multiple contiguous axial sections were obtained through the face followed by coronal reconstructions without the IV infusion of contrast material. Auto dosage reduction and iterative reconstruction techniques employed. FINDINGS: No bony fractures are identified the orbits. Nasal bones are intact. No soft tissue mass or hematoma is seen. Orbital fat planes are well demarcated. The globes have a normal contour bilaterally. Paranasal sinuses are clear. There is leftward deviation of the nasal septum IMPRESSION: No fracture or significant hematoma
== END 2020-09-28 11:33 | disposition home or self-care (01) ==
LOC: JP.ED 08:57
DX: R25.9 Unspecified abnormal involuntary movements (principal); J45.909 Unspecified asthma, uncomplicated; K21.9 Gastro-esophageal reflux disease without esophagitis; E66.9 Obesity, unspecified; Z68.37 Body mass index [BMI] 37.0-37.9, adult; Z88.6 Allergy status to analgesic agent; Z88.1 Allergy status to other antibiotic agents; Z88.0 Allergy status to penicillin
CPT/HCPCS: 36415; 70450; 70486; 80053; 80305; 80307; 83605; 84484; 85025; 99284; A9270

== ENCOUNTER 2020-10-25 13:09 | Emergency (ER) | payer MEDICAID ==
[2020-10-25 13:29] VITALS: BP 125/81; PULSE 76
[2020-10-25] MEDS ORDERED: Ondansetron 4 MG Tab.DIS PO ONE (13:59)
[2020-10-25] MEDS ORDERED: Loperamide 2 MG Cap PO ONE (14:05)
--- NOTE | 2020-10-25 14:32 | EDM.PDOC ---
ED HPI GENERAL MEDICAL PROBLEM - General Chief Complaint: Gastrointestinal Problem Stated Complaint: VOMITING, ISSUES WITH MED Time Seen by Provider: 10/25/20 14:27 Source of Information: Reports: Patient, Old Records, RN History Limitations: Reports: No Limitations - History of Present Illness INITIAL COMMENTS - FREE TEXT/NARRATIVE: 39 yo female here with a complaint of nausea, vomiting, and diarrhea felt to be due to meds she is on for H. pylori infection. She was advised by the providers in [place] who are treating her to come to the ER. Stools have been dark, but this is felt to be due to the bismuth she is prescribed. Says her kidneys hurt bilaterally. Onset: Gradual Onset Date: 10/22/20 Duration: Day(s): (2-3), Getting Worse Location: Reports: Abdomen Quality: Reports: Other (mild cramping) Severity: Mild Improves with: Reports: None Worsens with: Reports: Other (time) Context: Reports: Other (See HPI) Associated Symptoms: Reports: Nausea/Vomiting (not as bad as the diarrhea). Denies: Fever/Chills Treatments DIRECTOR OF COMPENSATION: Reports: Other (see below) (none) Flank Pain Score (Numeric/FACES): 8 - Related Data Allergies Allergy/AdvReac Type Severity Reaction Status Date / Time aspirin Allergy Severe Anaphylactic Verified 10/25/20 13:49 Shock NSAIDS (Non-Steroidal Allergy Severe Anaphylactic Verified 10/25/20 13:49 Anti-Inflamma Shock levofloxacin Allergy Intermediate Difficulty Verified 10/25/20 13:49 Swallowing Penicillins Allergy Rash Verified 10/25/20 13:49 Home Meds: Home Meds Acetaminophen [Tylenol Arthritis] 650 mg PO ASDIRECTED PRN 02/19/16 [History] Pantoprazole 20 mg PO BID 10/14/16 [History] Albuterol [Ventolin HFA] 2 puff INH Q4H PRN 01/25/18 [History] Cyanocobalamin (Vitamin B-12) [Cyanocobalamin Injection] 1,000 mcg IJ ASDIRECTED 01/25/18 [History] FLUoxetine HCl [Prozac] 60 mg PO DAILY 03/02/19 [History] Erenumab-Aooe [Aimovig Autoinjector] 70 mg SQ ASDIRECTED 05/15/19 [History] diazePAM [Valium] 5 mg PO ASDIRECTED PRN 07/19/19 [History] Ubrogepant [Ubrelvy] 100 mg PO ASDIRECTED 02/03/20 [History] lamoTRIgine [Lamotrigine] 100 mg PO BID 02/03/20 [History] Albuterol Sulfate 2.5 mg IH ASDIRECTED 03/10/20 [History] Folic Acid 1 mg PO DAILY 09/20/20 [History] Iron 65 mg PO DAILY 09/20/20 [History] Thiamine Mononitrate (Vit B1) [Vitamin B-1] 100 mg PO DAILY 09/20/20 [History] Bismuth/Metronid/Tetracycline [Pylera Capsule] 3 tab PO QID 10/25/20 [History] Ondansetron [Zofran ODT] 4 mg PO Q6H PRN #8 tab.dis 10/25/20 [Rx] Past Medical History HEENT History: Reports: Allergic Rhinitis Other HEENT History: presnetly c/o of headache Respiratory History: Reports: Asthma Gastrointestinal History: Reports: GERD, Other (See Below) Other Gastrointestinal History: cervical steroid injections. h. pylori Genitourinary History: Reports: None REALTY SPECIALIST History: Reports: Endometrial Ablation Other REALTY SPECIALIST History: R oophectomy Musculoskeletal History: Reports: Arthritis Other Musculoskeletal History: chronic shoulder and neck pain Neurological History: Reports: Migraines Psychiatric History: Reports: Anxiety, OCD, PTSD Endocrine/Metabolic History: Reports: Obesity/BMI 30+ Hematologic History: Reports: B12 Deficiency, Iron Deficiency - Infectious Disease History Infectious Disease History: Reports: Chicken Pox - Past Surgical History Head Surgeries/Procedures: Reports: None HEENT Surgical History: Reports: Adenoidectomy, Tonsillectomy Respiratory Surgical History: Reports: None GI Surgical History: Reports: Bariatric Procedure, Cholecystectomy, Hernia, Abdominal, Other (See Below) Other GI Surgeries/Procedures: pann on 02/19/2019 Female Surgical History: Reports: Endometrial Ablation, Hysterectomy Other Female Surgeries/Procedures: bilateral fallopian tubes removed and right ovary removed Endocrine Surgical History: Reports: None Neurological Surgical History: Reports: Spinal Fusion Musculoskeletal Surgical History: Reports: Other (See Below) Other Musculoskeletal Surgeries/Procedures:: Neck surgery Injections for pain [facility] in [place]. Neck fusion in October 2016 Dermatological Surgical History: Reports: None Social & Family History - Family History Family Medical History: No Pertinent Family History - Tobacco Use Tobacco Use Status *Q: Never Tobacco User - Caffeine Use Caffeine Use: Reports: Coffee - Recreational Drug Use Recreational Drug Use: No ED ROS GENERAL - Review of Systems Review Of Systems: See Below Constitutional: Reports: No Symptoms HEENT: Reports: No Symptoms Respiratory: Reports: No Symptoms Cardiovascular: Reports: No Symptoms GI/Abdominal: Reports: Abdominal Pain (mild cramps), Black Stool, Diarrhea, Nausea, Vomiting. Denies: Bloody Stool, Distension, Hematemesis, Hematochezia, Melena : Reports: No Symptoms Musculoskeletal: Reports: No Symptoms Skin: Reports: No Symptoms Neurological: Reports: No Symptoms ED EXAM, GI/ABD - Physical Exam Exam: See Below Exam Limited By: No Limitations General Appearance: Alert, WD/WN, No Apparent Distress Eyes: Bilateral: Normal Appearance Ears: Normal External Exam, Normal Canal, Hearing Grossly Normal, Normal TMs Nose: Normal Inspection, No Blood Throat/Mouth: Normal Inspection, Normal Lips, Normal Oropharynx, Normal Voice, No Airway Compromise Head: Atraumatic, Normocephalic Neck: Normal Inspection Respiratory/Chest: No Respiratory Distress, Lungs Clear, Normal Breath Sounds, No Accessory Muscle Use Cardiovascular: Regular Rate, Rhythm, No Edema GI/Abdominal Exam: Normal Bowel Sounds, Soft, Non-Tender, No Distention Back Exam: Normal Inspection. No: CVA Tenderness (R), CVA Tenderness (L) Extremities: Normal Inspection, Normal Range of Motion, Non-Tender, No Pedal Edema. No: Pedal Edema Neurological: Alert, Oriented, CN II-XII Intact, Normal Cognition, No Motor/Sensory Deficits Psychiatric: Normal Affect, Normal Mood Skin Exam: Warm, Dry, Intact, Normal Color, No Rash Course - Vital Signs Last Recorded V/S: Last Vital Signs Temp 36.3 C 10/25/20 13:44 Pulse 76 10/25/20 13:44 Resp 16 10/25/20 13:44 BP 125/81 10/25/20 13:44 Pulse Ox 99 10/25/20 13:44 Orthostatic Blood Pressure [ 119/71 Supine] Orthostatic Blood Pressure [ 126/78 Sitting] Orthostatic Blood Pressure [ 127/86 Standing] - Orders/Labs/Meds Orders: Active Orders 24 hr Category Date Time Status Orthostatic Vital Signs [RC] ASDIRECTED Care 10/25/20 13:59 Active Labs: Laboratory Tests 10/25/20 10/25/20 Range/Units 14:10 15:00 Sodium 141 (140-148) mmol/L Potassium 4.1 (3.6-5.2) mmol/L Chloride 104 (100-108) mmol/L Carbon Dioxide 26 (21-32) mmol/L Anion Gap 10.8 (5.0-14.0) mmol/L BUN 11 (7-18) mg/dL Creatinine 0.8 (0.6-1.0) mg/dL Est Cr Clr Drug Dosing 81.53 mL/min Estimated GFR (MDRD) > 60 (>60) Glucose 87 (74-106) mg/dL Calcium 9.4 (8.5-10.1) mg/dL Urine Color Yellow (YELLOW) Urine Appearance Clear (CLEAR) Urine pH 6.0 (5.0-8.0) Ur Specific Breese 1.020 (1.008-1.030) Urine Protein Negative (NEGATIVE) mg/dL Urine Glucose (UA) Negative (NEGATIVE) mg/dL Urine Ketones Negative (NEGATIVE) mg/dL Urine Occult Blood Negative (NEGATIVE) Urine Nitrite Negative (NEGATIVE) Urine Bilirubin Negative (NEGATIVE) Urine Urobilinogen 0.2 (0.2-1.0) EU/dL Ur Leukocyte Esterase Negative (NEGATIVE) Urine RBC 0-5 (0-5) Urine WBC 0-5 (0-5) Ur Epithelial Cells Few Amorphous Sediment Not seen Urine Bacteria Few Urine Mucus Rare Meds: Medications Discontinued Medications Generic Name Dose Route Start Last Admin Trade Name Freq PRN Reason Stop Dose Admin Lactated Ringer's 1,000 mls @ 1,000 mls/hr 10/25/20 15:00 Ringers, Lactated IV BOLUS BRYCE Loperamide HCl 2 mg 10/25/20 14:05 10/25/20 14:09 Loperamide 2 Mg Cap PO 10/25/20 14:06 2 mg ONETIME ONE Administration Ondansetron HCl 4 mg 10/25/20 13:59 10/25/20 14:07 Ondansetron 4 Mg Tab.Dis PO 10/25/20 14:00 4 mg ONETIME ONE Administration Departure - Departure Time of Disposition: 15:15 Disposition: Home, Self-Care 01 Condition: Good Clinical Impression: Nausea vomiting and diarrhea - Discharge Information *PRESCRIPTION DRUG MONITORING PROGRAM REVIEWED*: Not Applicable *COPY OF PRESCRIPTION DRUG MONITORING REPORT IN PATIENT ANDRES: Not Applicable Prescriptions: Ondansetron [Zofran ODT] 4 mg PO Q6H PRN #8 tab.dis PRN Reason: Nausea Instructions: Nausea and Vomiting, Adult, Diarrhea, Adult, [id number] Referrals: Yessica Rubin, ARCHITECTURAL DRAFTSMAN [Primary Care Provider] - Forms: ED Department Discharge Additional Instructions: Use Zofran as needed for nausea control. Use Peptobismol per package instructions for diarrhea control. Stay in touch with your provider regarding your status. Drink enough fluids so that your urine is light yellow in color. Sepsis Event Note (ED) - Evaluation Sepsis Screening Result: No Definite Risk - Focused Exam Vital Signs: Vital Signs Temp Pulse Resp BP Pulse Ox 10/25/20 13:44 36.3 C 76 16 125/81 99 10/25/20 13:27 36.3 C 76 16 125/81 99 - My Orders Last 24 Hours: My Active Orders 10/25/20 13:59 Orthostatic Vital Signs [RC] ASDIRECTED - Assessment/Plan Last 24 Hours: My Active Orders 10/25/20 13:59 Orthostatic Vital Signs [RC] ASDIRECTED
[2020-10-25] MEDS ORDERED: Lactated Ringers 1,000 ML IV SCH (15:00)
== END 2020-10-25 15:28 | disposition home or self-care (01) ==
LOC: JP.ED 13:09
DX: R11.2 Nausea with vomiting, unspecified (principal); R19.7 Diarrhea, unspecified; J45.909 Unspecified asthma, uncomplicated; K21.9 Gastro-esophageal reflux disease without esophagitis; E66.9 Obesity, unspecified; Z88.0 Allergy status to penicillin; Z88.1 Allergy status to other antibiotic agents; Z88.8 Allergy status to other drugs, medicaments and biological substances; Z68.37 Body mass index [BMI] 37.0-37.9, adult
CPT/HCPCS: 36415; 80048; 81001; 99284; A9270

== ENCOUNTER 2020-11-06 18:44 | Emergency (ER) | payer MEDICAID ==
[2020-11-06 19:00] VITALS: BP 144/90; PULSE 72
--- NOTE | 2020-11-06 19:22 | EDM.PDOC ---
ED HPI GENERAL MEDICAL PROBLEM - General Chief Complaint: Upper Extremity Injury/Pain Stated Complaint: NO FEELING LEFT HAND Time Seen by Provider: 11/06/20 19:00 Source of Information: Reports: Patient History Limitations: Reports: No Limitations - History of Present Illness INITIAL COMMENTS - FREE TEXT/NARRATIVE: 39-year-old female presents with some vague symptoms of left hand numbness and pain in her left shoulder for the past couple of hours, she fell last night onto her right knee which is painful but the arm and hand did not become symptomatic until this evening. She can now feel her hand. No fever or chills. No shortness of breath. She talked to some family members and thought she might have a blood clot in her lung so came in. Onset: Sudden (Arm numbness started fairly suddenly a few hours ago, knee pain started last night after she fell) Associated Symptoms: Denies: Chest Pain, Cough, Shortness of Breath, Syncope Left Upper Arm Pain Score (Numeric/FACES): 7 - Related Data Allergies Allergy/AdvReac Type Severity Reaction Status Date / Time aspirin Allergy Severe Anaphylactic Verified 10/25/20 13:49 Shock NSAIDS (Non-Steroidal Allergy Severe Anaphylactic Verified 10/25/20 13:49 Anti-Inflamma Shock levofloxacin Allergy Intermediate Difficulty Verified 10/25/20 13:49 Swallowing Penicillins Allergy Rash Verified 10/25/20 13:49 Home Meds: Home Meds Acetaminophen [Tylenol Arthritis] 650 mg PO ASDIRECTED PRN 02/19/16 [History] Pantoprazole 20 mg PO BID 10/14/16 [History] Albuterol [Ventolin HFA] 2 puff INH Q4H PRN 01/25/18 [History] Cyanocobalamin (Vitamin B-12) [Cyanocobalamin Injection] 1,000 mcg IJ ASDIRECTED 01/25/18 [History] FLUoxetine HCl [Prozac] 60 mg PO DAILY 03/02/19 [History] Erenumab-Aooe [Aimovig Autoinjector] 70 mg SQ ASDIRECTED 05/15/19 [History] diazePAM [Valium] 5 mg PO ASDIRECTED PRN 07/19/19 [History] Ubrogepant [Ubrelvy] 100 mg PO ASDIRECTED 02/03/20 [History] lamoTRIgine [Lamotrigine] 100 mg PO BID 02/03/20 [History] Albuterol Sulfate 2.5 mg IH ASDIRECTED 03/10/20 [History] Folic Acid 1 mg PO DAILY 09/20/20 [History] Iron 65 mg PO DAILY 09/20/20 [History] Thiamine Mononitrate (Vit B1) [Vitamin B-1] 100 mg PO DAILY 09/20/20 [History] Ondansetron [Zofran ODT] 4 mg PO Q6H PRN #8 tab.dis 10/25/20 [Rx] Past Medical History HEENT History: Reports: Allergic Rhinitis Other HEENT History: presnetly c/o of headache Respiratory History: Reports: Asthma Gastrointestinal History: Reports: GERD, Other (See Below) Other Gastrointestinal History: cervical steroid injections. h. pylori Genitourinary History: Reports: None BULK FILLER History: Reports: Endometrial Ablation Other BULK FILLER History: R oophectomy Musculoskeletal History: Reports: Arthritis Other Musculoskeletal History: chronic shoulder and neck pain Neurological History: Reports: Migraines Psychiatric History: Reports: Anxiety, OCD, PTSD Endocrine/Metabolic History: Reports: Obesity/BMI 30+ Hematologic History: Reports: B12 Deficiency, Iron Deficiency - Infectious Disease History Infectious Disease History: Reports: Chicken Pox - Past Surgical History Head Surgeries/Procedures: Reports: None HEENT Surgical History: Reports: Adenoidectomy, Tonsillectomy Respiratory Surgical History: Reports: None GI Surgical History: Reports: Bariatric Procedure, Cholecystectomy, Hernia, Abdominal, Other (See Below) Other GI Surgeries/Procedures: pann on 02/19/2019 Female Surgical History: Reports: Endometrial Ablation, Hysterectomy Other Female Surgeries/Procedures: bilateral fallopian tubes removed and right ovary removed Endocrine Surgical History: Reports: None Neurological Surgical History: Reports: Spinal Fusion Musculoskeletal Surgical History: Reports: Other (See Below) Other Musculoskeletal Surgeries/Procedures:: Neck surgery Injections for pain Center for [facility] management in [place]. Neck fusion in October 2016 Dermatological Surgical History: Reports: None Social & Family History - Family History Family Medical History: No Pertinent Family History - Tobacco Use Tobacco Use Status *Q: Light Tobacco User Years of Tobacco use: 10 Packs/Tins Daily: 0.1 - Caffeine Use Caffeine Use: Reports: Coffee - Recreational Drug Use Recreational Drug Use: No Review of Systems - Review of Systems Review Of Systems: See Below Constitutional: Denies: Fever Respiratory: Reports: No Symptoms Cardiovascular: Reports: No Symptoms Musculoskeletal: Reports: Other (Right knee pain, left arm and shoulder discomfort) Skin: Reports: Erythema (Slight erythema and bruising over the patella of the right knee) Neurological: Reports: Paresthesia ED EXAM, GENERAL - Physical Exam Exam: See Below (Left hand) Exam Limited By: No Limitations General Appearance: Alert, No Apparent Distress Eye Exam: Bilateral Eye: Normal Inspection Head: Atraumatic Respiratory/Chest: No Respiratory Distress, Lungs Clear Cardiovascular: Regular Rate, Rhythm. No: Tachycardia Extremities: Other (No objective signs of abnormality to the left arm, grasp strength is good and she has full range of motion of the shoulder. The right patella is tender to palpation but no crepitus, slight bruising, no effusion) Neurological: Alert, Oriented, No Motor/Sensory Deficits, Other (Romberg is negative, no pronator drift) Psychiatric: Normal Affect, Normal Mood Course - Vital Signs Last Recorded V/S: Last Vital Signs Temp 100.0 F 11/06/20 18:58 Pulse 72 11/06/20 18:58 Resp 16 11/06/20 18:58 BP 144/90 H 11/06/20 18:58 Pulse Ox 99 11/06/20 18:58 - Re-Assessments/Exams Free Text/Narrative Re-Assessment/Exam: 11/06/20 19:20 Symptoms are already resolving in her left arm, some brief nerve irritation is the most likely source and no work-up is needed. She was reassured this does not present as a pulmonary embolus. She does have a contusion of the right patella, she was given a 4 inch Phil wrap and encouraged to increase activity as tolerated. 11/06/20 19:28 Initially some ketorolac was offered to the patient which she has taken safely in the past, and she declined prior to discharge she did show a she would take a few doses. 10 doses were given through [facility] Departure - Departure Time of Disposition: 19:27 Disposition: Home, Self-Care 01 Clinical Impression: Paresthesia of left arm Contusion of right patella Qualifiers: Encounter type: initial encounter Qualified Code(s): S80.01XA - Contusion of right knee, initial encounter - Discharge Information Instructions: Paresthesia, Contusion, [id number] Referrals: Yessica Rubin RADIATION THERAPIST [Primary Care Provider] - Forms: ED Department Discharge Care Plan Goals: Wrap knee for comfort, increase activity as tolerated and consider rechecking in 2 to 3 days if not improving satisfactorily. Sepsis Event Note (ED) - Evaluation Sepsis Screening Result: No Definite Risk - Focused Exam Vital Signs: Vital Signs Temp Pulse Resp BP Pulse Ox 11/06/20 18:58 100.0 F 72 16 144/90 H 99
== END 2020-11-06 19:28 | disposition home or self-care (01) ==
LOC: JP.ED 18:44
DX: S80.01XA Contusion of right knee, initial encounter (principal); R20.2 Paresthesia of skin; J45.909 Unspecified asthma, uncomplicated; K21.9 Gastro-esophageal reflux disease without esophagitis; E66.9 Obesity, unspecified; Z68.38 Body mass index [BMI] 38.0-38.9, adult; Z88.8 Allergy status to other drugs, medicaments and biological substances; Z88.1 Allergy status to other antibiotic agents; Z88.0 Allergy status to penicillin; Z72.0 Tobacco use; W18.39XA Other fall on same level, initial encounter
CPT/HCPCS: 99283

== ENCOUNTER 2020-12-05 21:41 | Emergency (ER) | payer MEDICAID ==
[2020-12-05 23:06] VITALS: BP 142/80; PULSE 82
[2020-12-05] MEDS ORDERED: Albuterol/Ipratropium 3.0-0.5 MG/3 ML Neb Soln NEB ONE (23:37)
[2020-12-05] MEDS ORDERED: methylPREDNISolone Sodium Succinate 125 MG/2 ML SDV IVPUSH ONE (23:41)
--- NOTE | 2020-12-06 00:26 | EDM.PDOC ---
ED HPI GENERAL MEDICAL PROBLEM - General Chief Complaint: General Stated Complaint: FEVER/SICK 6WKS Time Seen by Provider: 12/05/20 23:20 Source of Information: Reports: Patient History Limitations: Reports: No Limitations - History of Present Illness INITIAL COMMENTS - FREE TEXT/NARRATIVE: 39-year-old female who has had a cough for 6 weeks, over the last 2 days now she has been wheezing. She has an appointment with her primary coming up in 3 days but started running a fever tonight and called him they told her to come to the emergency room. She has been on antibiotics. Some nausea but no vomiting. She says she smokes "rarely". She has had allergies her whole life. Onset: Gradual Duration: Week(s): (Cough for weeks, wheezing for 2 days) Associated Symptoms: Reports: Cough, Fever/Chills, Nausea/Vomiting, Shortness of Breath - Related Data Allergies Allergy/AdvReac Type Severity Reaction Status Date / Time aspirin Allergy Severe Anaphylactic Verified 12/05/20 23:07 Shock NSAIDS (Non-Steroidal Allergy Severe Anaphylactic Verified 12/05/20 23:07 Anti-Inflamma Shock levofloxacin Allergy Intermediate Difficulty Verified 12/05/20 23:07 Swallowing Penicillins Allergy Rash Verified 12/05/20 23:07 Home Meds: Home Meds Acetaminophen [Tylenol Arthritis] 650 mg PO ASDIRECTED PRN 02/19/16 [History] Pantoprazole 20 mg PO BID 10/14/16 [History] Albuterol [Ventolin HFA] 2 puff INH Q4H PRN 01/25/18 [History] Cyanocobalamin (Vitamin B-12) [Cyanocobalamin Injection] 1,000 mcg IJ ASDIRECTED 01/25/18 [History] FLUoxetine HCl [Prozac] 60 mg PO DAILY 03/02/19 [History] Erenumab-Aooe [Aimovig Autoinjector] 70 mg SQ ASDIRECTED 05/15/19 [History] diazePAM [Valium] 5 mg PO ASDIRECTED PRN 07/19/19 [History] Ubrogepant [Ubrelvy] 100 mg PO ASDIRECTED 02/03/20 [History] lamoTRIgine [Lamotrigine] 100 mg PO BID 02/03/20 [History] Albuterol Sulfate 2.5 mg IH ASDIRECTED 03/10/20 [History] Folic Acid 1 mg PO DAILY 09/20/20 [History] Iron 65 mg PO DAILY 09/20/20 [History] Thiamine Mononitrate (Vit B1) [Vitamin B-1] 100 mg PO DAILY 09/20/20 [History] Ondansetron [Zofran ODT] 4 mg PO Q6H PRN #8 tab.dis 10/25/20 [Rx] Cetirizine [ZyrTEC] 10 mg PO DAILY 12/05/20 [History] Doxycycline [Vibramycin] 200 mg PO DAILY 12/05/20 [History] Past Medical History HEENT History: Reports: Allergic Rhinitis Other HEENT History: presnetly c/o of headache Respiratory History: Reports: Asthma Gastrointestinal History: Reports: GERD, Other (See Below) Other Gastrointestinal History: cervical steroid injections. h. pylori Genitourinary History: Reports: None NURSE TRANSITIONAL History: Reports: Endometrial Ablation Other NURSE TRANSITIONAL History: R oophectomy Musculoskeletal History: Reports: Arthritis Other Musculoskeletal History: chronic shoulder and neck pain Neurological History: Reports: Migraines Psychiatric History: Reports: Anxiety, OCD, PTSD Endocrine/Metabolic History: Reports: Obesity/BMI 30+ Hematologic History: Reports: B12 Deficiency, Iron Deficiency - Infectious Disease History Infectious Disease History: Reports: Chicken Pox - Past Surgical History Head Surgeries/Procedures: Reports: None HEENT Surgical History: Reports: Adenoidectomy, Tonsillectomy Respiratory Surgical History: Reports: None GI Surgical History: Reports: Bariatric Procedure, Cholecystectomy, Hernia, Abdominal, Other (See Below) Other GI Surgeries/Procedures: pann on 02/19/2019 Female Surgical History: Reports: Endometrial Ablation, Hysterectomy Other Female Surgeries/Procedures: bilateral fallopian tubes removed and right ovary removed Endocrine Surgical History: Reports: None Neurological Surgical History: Reports: Spinal Fusion Musculoskeletal Surgical History: Reports: Other (See Below) Other Musculoskeletal Surgeries/Procedures:: Neck surgery Injections for pain Center for pain management in [place]. Neck fusion in October 2016 Dermatological Surgical History: Reports: None Social & Family History - Family History Family Medical History: No Pertinent Family History - Tobacco Use Tobacco Use Status *Q: Light Tobacco User Years of Tobacco use: 5 Packs/Tins Daily: 0.1 - Caffeine Use Caffeine Use: Reports: None - Recreational Drug Use Recreational Drug Use: No ED ROS GENERAL - Review of Systems Review Of Systems: See Below Constitutional: Reports: Fever, Chills, Malaise HEENT: Denies: Throat Pain Respiratory: Reports: Shortness of Breath, Cough. Denies: Sputum GI/Abdominal: Reports: Nausea Musculoskeletal: Reports: Back Pain Skin: Reports: No Symptoms. Denies: Rash Neurological: Denies: Headache ED EXAM, GENERAL - Physical Exam Exam: See Below Exam Limited By: No Limitations General Appearance: Alert, No Apparent Distress (Frequent cough, audible wheezing) Eye Exam: Bilateral Eye: Normal Inspection Head: Atraumatic Respiratory/Chest: Wheezing (Diffuse expiratory wheezes are heard bilaterally) Cardiovascular: Regular Rate, Rhythm Extremities: Normal Inspection. No: Pedal Edema Neurological: Alert, Oriented Psychiatric: Normal Affect, Normal Mood Skin Exam: Warm, Dry Course - Vital Signs Last Recorded V/S: Last Vital Signs Temp 97.4 F 12/05/20 23:15 Pulse 82 12/05/20 23:15 Resp 20 12/05/20 23:15 BP 142/80 H 12/05/20 23:15 Pulse Ox 98 12/05/20 23:15 - Orders/Labs/Meds Meds: Medications Discontinued Medications Generic Name Dose Route Start Last Admin Trade Name Freq PRN Reason Stop Dose Admin Albuterol/Ipratropium 3 ml 12/05/20 23:37 12/05/20 23:57 Albuterol/Ipratropium 3.0-0.5 Mg/3 Ml Neb Soln NEB 12/05/20 23:38 3 ml ONETIME ONE Administration Methylprednisolone Sodium Succinate 125 mg 12/05/20 23:41 12/06/20 00:07 Methylprednisolone Sodium Succinate 125 Mg/2 Ml Sdv IVPUSH 12/05/20 23:42 125 mg ONETIME ONE Administration - Re-Assessments/Exams Free Text/Narrative Re-Assessment/Exam: 12/06/20 00:24 Patient was given a DuoNeb which helped somewhat subjectively, there was objectively less wheezing but it was still present. Her vitals were normal when she arrived with no fever and normal O2 saturations, these were unchanged. She was given 250 mg of IV Solu-Medrol, and started on a Medrol Dosepak which she can start tomorrow and recheck with her primary on as planned Departure - Departure Time of Disposition: 00:32 Disposition: Home, Self-Care 01 Clinical Impression: Reactive airway disease with wheezing Qualifiers: Asthma severity: moderate Asthma persistence: persistent Asthma complication type: uncomplicated Qualified Code(s): J45.40 - Moderate persistent asthma, uncomplicated - Discharge Information Instructions: Asthma, Adult, [id number] Referrals: PCP,None [Primary Care Provider] - Forms: ED Department Discharge Care Plan Goals: Take Medrol Dosepak as prescribed continue with your inhaler as needed. Recheck on as scheduled, or return to the emergency room if worsening despite treatment such as increasing shortness of breath or other concerns. Sepsis Event Note (ED) - Evaluation Sepsis Screening Result: No Definite Risk - Focused Exam Vital Signs: Vital Signs Temp Pulse Resp BP Pulse Ox 12/05/20 23:15 97.4 F 82 20 142/80 H 98 12/05/20 23:05 97.4 F 82 20 142/80 H 98
== END 2020-12-06 00:32 | disposition home or self-care (01) ==
LOC: JP.ED 21:41
DX: J45.40 Moderate persistent asthma, uncomplicated (principal); K21.9 Gastro-esophageal reflux disease without esophagitis; E66.9 Obesity, unspecified; Z68.30 Body mass index [BMI] 30.0-30.9, adult; Z79.899 Other long term (current) drug therapy; Z88.0 Allergy status to penicillin; Z88.1 Allergy status to other antibiotic agents; Z88.8 Allergy status to other drugs, medicaments and biological substances; Z72.0 Tobacco use
CPT/HCPCS: 94640; 99283; 99284; J2930; J7620-GY

== ENCOUNTER 2021-01-14 00:45 | Emergency (ER) | payer MEDICAID ==
--- NOTE | 2021-01-14 01:19 | EDM.PDOC ---
ED HPI GENERAL MEDICAL PROBLEM - General Chief Complaint: Lower Extremity Injury/Pain Stated Complaint: HURT LEFT KNEE Time Seen by Provider: 01/14/21 01:05 Source of Information: Reports: Patient, Old Records, RN History Limitations: Reports: No Limitations - History of Present Illness INITIAL COMMENTS - FREE TEXT/NARRATIVE: 40 yo female fell onto her L knee anterior aspect yesterday. Has been having a hard time walking since. Was not seen for this injury earlier. Came tonight because it is keeping her awake. Does not know when her last tetanus was. 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: Other (see below) (none) Left Knee Pain Score (Numeric/FACES): 10 - Related Data Allergies Allergy/AdvReac Type Severity Reaction Status Date / Time aspirin Allergy Severe Anaphylactic Verified 01/14/21 01:00 Shock NSAIDS (Non-Steroidal Allergy Severe Anaphylactic Verified 01/14/21 01:00 Anti-Inflamma Shock levofloxacin Allergy Intermediate Difficulty Verified 01/14/21 01:00 Swallowing Penicillins Allergy Rash Verified 01/14/21 01:00 Home Meds: Home Meds Acetaminophen [Tylenol Arthritis] 650 mg PO ASDIRECTED PRN 02/19/16 [History] Pantoprazole 20 mg PO BID 10/14/16 [History] Albuterol [Ventolin HFA] 2 puff INH Q4H PRN 01/25/18 [History] Cyanocobalamin (Vitamin B-12) [Cyanocobalamin Injection] 1,000 mcg IJ ASDIRECTED 01/25/18 [History] FLUoxetine HCl [Prozac] 60 mg PO DAILY 03/02/19 [History] Erenumab-Aooe [Aimovig Autoinjector] 70 mg SQ ASDIRECTED 05/15/19 [History] diazePAM [Valium] 5 mg PO ASDIRECTED PRN 07/19/19 [History] Ubrogepant [Ubrelvy] 100 mg PO ASDIRECTED 02/03/20 [History] lamoTRIgine [Lamotrigine] 100 mg PO BID 02/03/20 [History] Albuterol Sulfate 2.5 mg IH ASDIRECTED 03/10/20 [History] Folic Acid 1 mg PO DAILY 09/20/20 [History] Iron 65 mg PO DAILY 09/20/20 [History] Thiamine Mononitrate (Vit B1) [Vitamin B-1] 100 mg PO DAILY 09/20/20 [History] Cetirizine [ZyrTEC] 10 mg PO DAILY 12/05/20 [History] Past Medical History HEENT History: Reports: Allergic Rhinitis Other HEENT History: presnetly c/o of headache Respiratory History: Reports: Asthma Gastrointestinal History: Reports: GERD, Other (See Below) Other Gastrointestinal History: cervical steroid injections. h. 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 EXTENSION WORK History: Reports: Endometrial Ablation Other INSTRUCTOR EXTENSION WORK History: R oophectomy Musculoskeletal History: Reports: Arthritis Other Musculoskeletal History: chronic shoulder and neck pain Neurological History: Reports: Migraines Psychiatric History: Reports: Anxiety, OCD, PTSD Endocrine/Metabolic History: Reports: Obesity/BMI 30+ Hematologic History: Reports: B12 Deficiency, Iron Deficiency - Infectious Disease History Infectious Disease History: Reports: Chicken Pox - Past Surgical History Head Surgeries/Procedures: Reports: None HEENT Surgical History: Reports: Adenoidectomy, Tonsillectomy Respiratory Surgical History: Reports: None GI Surgical History: Reports: Bariatric Procedure, Cholecystectomy, Hernia, Abdominal, Other (See Below) Other GI Surgeries/Procedures: pann on 02/19/2019 Female Surgical History: Reports: Endometrial Ablation, Hysterectomy Other Female Surgeries/Procedures: bilateral fallopian tubes removed and right ovary removed Endocrine Surgical History: Reports: None Neurological Surgical History: Reports: Spinal Fusion Musculoskeletal Surgical History: Reports: Other (See Below) Other Musculoskeletal Surgeries/Procedures:: Neck surgery [facility] [place]. Neck fusion in October 2016 Dermatological Surgical History: Reports: None Social & Family History - Family History Family Medical History: No Pertinent Family History - Tobacco Use Tobacco Use Status *Q: Light Tobacco User Years of Tobacco use: 24 Packs/Tins Daily: 0.1 - Caffeine Use Caffeine Use: Reports: Coffee - Recreational Drug Use Recreational Drug Use: No Review of Systems - Review of Systems Review Of Systems: See Below Constitutional: Reports: No Symptoms Musculoskeletal: Reports: Joint Pain (L anterior knee) Skin: Reports: Wound (abrasion L anterior knee) Neurological: Reports: No Symptoms ED EXAM, GENERAL - Physical Exam Exam: See Below Exam Limited By: No Limitations General Appearance: Alert, WD/WN, No Apparent Distress Extremities: Limited Range of Motion. No: Non-Tender (tender over the L patella), Pedal Edema, Increased Warmth, Redness Neurological: Alert, Oriented, CN II-XII Intact, Normal Cognition, No Motor/Sensory Deficits Psychiatric: Normal Affect, Normal Mood Skin Exam: Warm, Dry, Normal Color, No Rash, Wound/Incision (abrasion L patella area) Course - Vital Signs Last Recorded V/S: Last Vital Signs Temp 36.4 C 01/14/21 00:57 Pulse 74 01/14/21 00:57 Resp 20 01/14/21 00:57 BP 158/95 H 01/14/21 00:57 Pulse Ox 99 01/14/21 00:57 - Orders/Labs/Meds Orders: Active Orders 24 hr Category Date Time Status Knee 3V Lt [CR] Stat Exams 01/14/21 01:13 Ordered Acetaminophen [Tylenol Extra Strength] Med 01/14/21 01:43 Once 1,000 mg PO ONETIME ONE Bacitracin [Bacitracin Oint 1 GM] Med 01/14/21 01:43 Once 1 dose TOP ONETIME ONE Medication Orders Acetaminophen (Acetaminophen 500 Mg Tab) 1,000 mg PO ONETIME ONE Stop: 01/14/21 01:44 Bacitracin (Bacitracin Oint 1 Gm U/D Packet) 1 dose TOP ONETIME ONE Stop: 01/14/21 01:44 Meds: Medications Generic Name Dose Route Start Last Admin Trade Name Freq PRN Reason Stop Dose Admin Acetaminophen 1,000 mg 01/14/21 01:43 Acetaminophen 500 Mg Tab PO 01/14/21 01:44 ONETIME ONE Bacitracin 1 dose 01/14/21 01:43 Bacitracin Oint 1 Gm U/D Packet TOP 01/14/21 01:44 ONETIME ONE Discontinued Medications Generic Name Dose Route Start Last Admin Trade Name Freq PRN Reason Stop Dose Admin Ondansetron HCl 4 mg 01/14/21 01:38 01/14/21 01:43 Ondansetron 4 Mg Tab.Dis PO 01/14/21 01:39 4 mg ONETIME ONE Administration - Radiology Interpretation Free Text/Narrative:: L knee X-ray-No fx seen Departure - Departure Time of Disposition: 01:50 Disposition: Home, Self-Care 01 Condition: Good Clinical Impression: Abrasion, left knee, initial encounter Contusion of left patella Qualifiers: Encounter type: initial encounter Qualified Code(s): S80.02XA - Contusion of left knee, initial encounter - Discharge Information *PRESCRIPTION DRUG MONITORING PROGRAM REVIEWED*: Not Applicable *COPY OF PRESCRIPTION DRUG MONITORING REPORT IN PATIENT ANDRES: Not Applicable Instructions: Contusion, [id number], Abrasion, [id number] Referrals: Yessica Rubin [employer] P[employer]ER [employer] GRADER [Primary Care Provider] - Forms: ED Department Discharge Additional Instructions: Acetaminophen 1000 mg every 6 hrs for pain relief. Zofran ODT every 6 hrs as needed for nausea. Rest. Cold compresses to left knee as much as possible. F/U with your doctor as needed. Sepsis Event Note (ED) - Evaluation Sepsis Screening Result: No Definite Risk - Focused Exam Vital Signs: Vital Signs Temp Pulse Resp BP Pulse Ox 01/14/21 00:57 36.4 C 74 20 158/95 H 99 - My Orders Last 24 Hours: My Active Orders 01/14/21 01:13 Knee 3V Lt [CR] Stat 01/14/21 01:43 Acetaminophen [Tylenol Extra Strength] 1,000 mg PO ONETIME ONE Bacitracin [Bacitracin Oint 1 GM] 1 dose TOP ONETIME ONE - Assessment/Plan Last 24 Hours: My Active Orders 01/14/21 01:13 Knee 3V Lt [CR] Stat 01/14/21 01:43 Acetaminophen [Tylenol Extra Strength] 1,000 mg PO ONETIME ONE Bacitracin [Bacitracin Oint 1 GM] 1 dose TOP ONETIME ONE
[2021-01-14] MEDS ORDERED: Ondansetron 4 MG Tab.DIS PO ONE (01:38)
[2021-01-14] MEDS ORDERED: Bacitracin Oint 1 GM U/D Packet TOP ONE (01:43)
[2021-01-14] MEDS ORDERED: Acetaminophen 500 MG Tab PO ONE (01:43)
[2021-01-14 01:46] VITALS: BP 158/95; PULSE 74
--- NOTE | 2021-01-16 09:26 | CR ---
Knee 3V Lt CLINICAL HISTORY: Fall FINDINGS: No acute fracture or dislocation is noted. There are no osseous lesions. There is mild patellar spurring. There is some soft tissue swelling over the patella. Impression: Soft tissue swelling No fracture or dislocation Mild patellar spurring
== END 2021-01-14 02:04 | disposition home or self-care (01) ==
LOC: JP.ED 00:45
DX: S80.02XA Contusion of left knee, initial encounter (principal); K21.9 Gastro-esophageal reflux disease without esophagitis; E66.9 Obesity, unspecified; Z68.38 Body mass index [BMI] 38.0-38.9, adult; Z88.0 Allergy status to penicillin; Z88.1 Allergy status to other antibiotic agents; Z88.8 Allergy status to other drugs, medicaments and biological substances; Z72.0 Tobacco use; W10.9XXA Fall (on) (from) unspecified stairs and steps, initial encounter
CPT/HCPCS: 73562; 99283; A9270

== ENCOUNTER 2021-03-27 14:09 | Emergency (ER) | payer MEDICAID ==
[2021-03-27] MEDS ORDERED: Sodium Chloride 0.9% 10 ML Syringe FLUSH PRN (14:13)
[2021-03-27] MEDS ORDERED: EPINEPHrine 1 MG/ML SDV IM ONE (14:13)
[2021-03-27] MEDS ORDERED: methylPREDNISolone Sodium Succinate 125 MG/2 ML SDV IV ONE (14:13)
[2021-03-27] MEDS ORDERED: diphenhydrAMINE 50 MG/ML SDV IVPUSH ONE (14:13)
--- NOTE | 2021-03-27 14:18 | EDM.PDOC ---
ED HPI GENERAL MEDICAL PROBLEM - General Stated Complaint: BEE STING - NECK SWELLING Time Seen by Provider: 03/27/21 14:13 Source of Information: Reports: Patient, RN Notes Reviewed History Limitations: Reports: No Limitations - History of Present Illness INITIAL COMMENTS - FREE TEXT/NARRATIVE: 40-year-old female presents emergency department day following bee sting which occurred approximately 10 minutes prior. She does carry an EpiPen for bee stings however has not been stung in several years. This particular event she started having difficulty speaking felt her neck was swelling difficulty swa llowing no difficulty breathing Throat Pain Score (Numeric/FACES): 8 - Related Data Allergies Allergy/AdvReac Type Severity Reaction Status Date / Time aspirin Allergy Severe Anaphylactic Verified 03/27/21 14:26 Shock NSAIDS (Non-Steroidal Allergy Severe Anaphylactic Verified 03/27/21 14:26 Anti-Inflamma Shock levofloxacin Allergy Intermediate Difficulty Verified 03/27/21 14:26 Swallowing Penicillins Allergy Rash Verified 03/27/21 14:26 Home Meds: Home Meds Acetaminophen [Tylenol Arthritis] 650 mg PO ASDIRECTED PRN 02/19/16 [History] Pantoprazole 20 mg PO BID 10/14/16 [History] Albuterol [Ventolin HFA] 2 puff INH Q4H PRN 01/25/18 [History] Cyanocobalamin (Vitamin B-12) [Cyanocobalamin Injection] 1,000 mcg IJ ASDIRECTED 01/25/18 [History] FLUoxetine HCl [Prozac] 60 mg PO DAILY 03/02/19 [History] Erenumab-Aooe [Aimovig Autoinjector] 70 mg SQ ASDIRECTED 05/15/19 [History] diazePAM [Valium] 5 mg PO ASDIRECTED PRN 07/19/19 [History] Ubrogepant [Ubrelvy] 100 mg PO ASDIRECTED 02/03/20 [History] lamoTRIgine [Lamotrigine] 100 mg PO BID 02/03/20 [History] Albuterol Sulfate 2.5 mg IH ASDIRECTED 03/10/20 [History] Folic Acid 1 mg PO DAILY 09/20/20 [History] Iron 65 mg PO DAILY 09/20/20 [History] Thiamine Mononitrate (Vit B1) [Vitamin B-1] 100 mg PO DAILY 09/20/20 [History] Cetirizine [ZyrTEC] 10 mg PO DAILY 12/05/20 [History] EPINEPHrine [Epipen 2-Bartolome] 0.3 mg IJ ONETIME #2 auto.injct 03/27/21 [Rx] oxyCODONE 5 mg PO ASDIRECTED 03/27/21 [History] Past Medical History HEENT History: Reports: Allergic Rhinitis Other HEENT History: presnetly c/o of headache Respiratory History: Reports: Asthma Gastrointestinal History: Reports: GERD, Other (See Below) Other Gastrointestinal History: cervical steroid injections. h. 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: Endometrial Ablation Other DRY WALL APPLICATOR History: R oophectomy Musculoskeletal History: Reports: Arthritis Other Musculoskeletal History: chronic shoulder and neck pain Neurological History: Reports: Migraines Psychiatric History: Reports: Anxiety, OCD, PTSD Endocrine/Metabolic History: Reports: Obesity/BMI 30+ Hematologic History: Reports: B12 Deficiency, Iron Deficiency - Infectious Disease History Infectious Disease History: Reports: Chicken Pox - Past Surgical History Head Surgeries/Procedures: Reports: None HEENT Surgical History: Reports: Adenoidectomy, Tonsillectomy Respiratory Surgical History: Reports: None GI Surgical History: Reports: Bariatric Procedure, Cholecystectomy, Hernia, Abdominal, Other (See Below) Other GI Surgeries/Procedures: pann on 02/19/2019 Female Surgical History: Reports: Endometrial Ablation, Hysterectomy Other Female Surgeries/Procedures: bilateral fallopian tubes removed and right ovary removed Endocrine Surgical History: Reports: None Neurological Surgical History: Reports: Spinal Fusion Musculoskeletal Surgical History: Reports: Other (See Below) Other Musculoskeletal Surgeries/Procedures:: Neck surgery [facility] [place]. Neck fusion in October 2016 Dermatological Surgical History: Reports: None Social & Family History - Family History Family Medical History: No Pertinent Family History - Caffeine Use Caffeine Use: Reports: Coffee ED ROS ALLERGIC REACTION - Review of Systems Review Of Systems: See Below Constitutional: Reports: No Symptoms HEENT: Reports: Throat Pain, Throat Swelling Respiratory: Reports: No Symptoms Cardiovascular: Reports: No Symptoms ED EXAM GENERAL NO PERIP PULSE - Physical Exam Exam: See Below Exam Limited By: No Limitations General Appearance: Alert, Mild Distress Throat/Mouth: Normal Inspection, Normal Lips, Normal Teeth, Normal Gums, Normal Oropharynx, Other (Change in voice) Neck: Normal Inspection, Supple, Non-Tender, Full Range of Motion Respiratory/Chest: No Respiratory Distress, Lungs Clear, Normal Breath Sounds, No Accessory Muscle Use, Chest Non-Tender Cardiovascular: Regular Rate, Rhythm, No Murmur Course - Vital Signs Last Recorded V/S: Last Vital Signs Temp 97 F 03/27/21 14:10 Pulse 73 03/27/21 15:26 Resp 18 03/27/21 14:50 BP 116/66 03/27/21 15:26 Pulse Ox 99 03/27/21 15:26 - Orders/Labs/Meds Orders: Active Orders 24 hr Category Date Time Status Peripheral IV Care [RC] . DIRECTED Care 03/27/21 14:13 Active Sodium Chloride 0.9% [Saline Flush] Med 03/27/21 14:13 Active 10 ml FLUSH ASDIRECTED PRN Peripheral IV Insertion Adult [OM.PC] Urgent Oth 03/27/21 14:13 Ordered Medication Orders Sodium Chloride (Sodium Chloride 0.9% 10 Ml Syringe) 10 ml FLUSH ASDIRECTED PRN PRN Reason: Keep Vein Open Last Admin: 03/27/21 14:29 Dose: 10 ml Documented by: GLORIA Macdonalds: Medications Generic Name Dose Route Start Last Admin Trade Name Freq PRN Reason Stop Dose Admin Sodium Chloride 10 ml 03/27/21 14:13 03/27/21 14:29 Sodium Chloride 0.9% 10 Ml Syringe FLUSH 10 ml ASDIRECTED PRN Administration Keep Vein Open Discontinued Medications Generic Name Dose Route Start Last Admin Trade Name Freq PRN Reason Stop Dose Admin Diphenhydramine HCl 50 mg 03/27/21 14:13 03/27/21 14:19 Diphenhydramine 50 Mg/Ml Sdv IVPUSH 03/27/21 14:14 50 mg ONETIME ONE Administration Epinephrine HCl 0.4 mg 03/27/21 14:13 03/27/21 14:15 Epinephrine 1 Mg/Ml Sdv IM 03/27/21 14:14 0.4 mg ONETIME ONE Administration Methylprednisolone Sodium Succinate 125 mg 03/27/21 14:13 03/27/21 14:20 Methylprednisolone Sodium Succinate 125 Mg/2 Ml Sdv IV 03/27/21 14:14 125 mg ONETIME ONE Administration Departure - Departure Time of Disposition: 16:03 Disposition: Home, Self-Care 01 Condition: Fair Clinical Impression: Allergic reaction to insect bite - Discharge Information Prescriptions: EPINEPHrine [Epipen 2-Bartolome] 0.3 mg IJ ONETIME #2 auto.injct Additional Instructions: Continue on regular medications, new EpiPen has been sent to pharmacy, continue to use Benadryl as needed for symptomatic relief, follow-up with primary care as needed call return to the emergency department worsening symptoms Sepsis Event Note (ED) - Focused Exam Vital Signs: Vital Signs Temp Pulse Resp BP Pulse Ox 03/27/21 15:26 73 116/66 99 03/27/21 14:50 67 18 110/63 99 03/27/21 14:10 97 F 66 20 132/110 H 100 - My Orders Last 24 Hours: My Active Orders 03/27/21 14:13 Peripheral IV Care [RC] . DIRECTED Sodium Chloride 0.9% [Saline Flush] 10 ml FLUSH ASDIRECTED PRN Peripheral IV Insertion Adult [OM.PC] Urgent - Assessment/Plan Last 24 Hours: My Active Orders 03/27/21 14:13 Peripheral IV Care [RC] . DIRECTED Sodium Chloride 0.9% [Saline Flush] 10 ml FLUSH ASDIRECTED PRN Peripheral IV Insertion Adult [OM.PC] Urgent Plan: Assessment Acuity = acute Site and laterality = allergic reaction Etiology = B venom Manifestations = difficulty speaking now resolved Location of injury = Home Lab values = none Plan Good improvement with epinephrine, Solu-Medrol and Benadryl EpiPen sent to her pharmacy follow-up primary care as needed return to emergency department worsening symptoms This note was dictated using [employer] voice recognition software please call with any questions on syntax or grammar.
[2021-03-27 15:27] VITALS: BP 116/66; PULSE 73
== END 2021-03-27 16:39 | disposition home or self-care (01) ==
LOC: JP.ED 14:09
DX: T63.441A Toxic effect of venom of bees, accidental (unintentional), initial encounter (principal); J45.909 Unspecified asthma, uncomplicated; K21.9 Gastro-esophageal reflux disease without esophagitis; E66.9 Obesity, unspecified; Z68.38 Body mass index [BMI] 38.0-38.9, adult; Z88.0 Allergy status to penicillin; Z88.1 Allergy status to other antibiotic agents; Z88.8 Allergy status to other drugs, medicaments and biological substances; Z79.899 Other long term (current) drug therapy
CPT/HCPCS: 96372; 96374; 96375; 99283; J0171; J1200; J2930

== ENCOUNTER 2021-05-13 19:56 | Emergency (ER) | payer MEDICAID ==
[2021-05-13 20:26] VITALS: BP 152/97; PULSE 74
[2021-05-13] MEDS ORDERED: Ketorolac 30 MG/ML SDV IM ONE (21:27)
--- NOTE | 2021-05-13 21:28 | EDM.PDOC ---
ED HPI GENERAL MEDICAL PROBLEM - General Chief Complaint: Wound Recheck Stated Complaint: POST SURGICAL RASH, LOWGRADE FEVER Time Seen by Provider: 05/13/21 20:30 Source of Information: Reports: Patient History Limitations: Reports: No Limitations - History of Present Illness INITIAL COMMENTS - FREE TEXT/NARRATIVE: 40-year-old female who had cervical fusion surgery 10 days ago, presents with persistent nausea and vomiting, petechial rash on the upper chest, and a persistent left lower quadrant pain for the past 4 days. She just took oxycodone 3 hours prior to presentation but is still hurting. No fevers or chills, bowels are moving in fact her stools are loose. She does have a history of ovarian cysts, a partial hysterectomy, gastric bypass surgery and several other abdominal surgeries. No back pain, no urinary symptoms. The pain started 4 days ago when she rolled over in bed and felt a sudden pain in her left lower quadrant. She was seen in the clinic the following day, a UA was checked but was negative. No other work-up was done. Onset: Sudden Duration: Day(s): (Started fairly suddenly while rolling over in bed 4 days ago) Location: Reports: Abdomen (Left lower abdomen) Associated Symptoms: Reports: Loss of Appetite, Malaise, Nausea/Vomiting (Persistent nausea and vomiting). Denies: Chest Pain, Cough, Fever/Chills, Shortness of Breath Left Lower Abdomen Pain Score (Numeric/FACES): 8 - Related Data Allergies Allergy/AdvReac Type Severity Reaction Status Date / Time aspirin Allergy Severe Anaphylactic Verified 05/13/21 20:05 Shock NSAIDS (Non-Steroidal Allergy Severe Anaphylactic Verified 05/13/21 20:05 Anti-Inflamma Shock levofloxacin Allergy Intermediate Difficulty Verified 05/13/21 20:05 Swallowing Penicillins Allergy Rash Verified 05/13/21 20:05 Home Meds: Home Meds Acetaminophen [Tylenol Arthritis] 650 mg PO ASDIRECTED PRN 02/19/16 [History] Pantoprazole 20 mg PO BID 10/14/16 [History] Albuterol [Ventolin HFA] 2 puff INH Q4H PRN 01/25/18 [History] Cyanocobalamin (Vitamin B-12) [Cyanocobalamin Injection] 1,000 mcg IJ ASDIRECTED 01/25/18 [History] FLUoxetine HCl [Prozac] 60 mg PO DAILY 03/02/19 [History] Erenumab-Aooe [Aimovig Autoinjector] 70 mg SQ ASDIRECTED 05/15/19 [History] diazePAM [Valium] 5 mg PO ASDIRECTED PRN 07/19/19 [History] Ubrogepant [Ubrelvy] 100 mg PO ASDIRECTED 02/03/20 [History] lamoTRIgine [Lamotrigine] 100 mg PO BID 02/03/20 [History] Albuterol Sulfate 2.5 mg IH ASDIRECTED 03/10/20 [History] Folic Acid 1 mg PO DAILY 09/20/20 [History] Iron 65 mg PO DAILY 09/20/20 [History] Thiamine Mononitrate (Vit B1) [Vitamin B-1] 100 mg PO DAILY 09/20/20 [History] Cetirizine [ZyrTEC] 10 mg PO DAILY 12/05/20 [History] EPINEPHrine [Epipen 2-Bartolome] 0.3 mg IJ ONETIME #2 auto.injct 03/27/21 [Rx] oxyCODONE 5 mg PO ASDIRECTED 03/27/21 [History] Past Medical History HEENT History: Reports: Allergic Rhinitis Other HEENT History: presnetly c/o of headache Respiratory History: Reports: Asthma Gastrointestinal History: Reports: GERD, Other (See Below) Other Gastrointestinal History: cervical steroid injections. h. pylori Genitourinary History: Reports: None LOOM WINDER TENDER History: Reports: Endometrial Ablation Other LOOM WINDER TENDER History: R oophectomy Musculoskeletal History: Reports: Arthritis Other Musculoskeletal History: chronic shoulder and neck pain Neurological History: Reports: Migraines Psychiatric History: Reports: Anxiety, OCD, PTSD Endocrine/Metabolic History: Reports: Obesity/BMI 30+ Hematologic History: Reports: B12 Deficiency, Iron Deficiency - Infectious Disease History Infectious Disease History: Reports: Chicken Pox - Past Surgical History Head Surgeries/Procedures: Reports: None HEENT Surgical History: Reports: Adenoidectomy, Tonsillectomy Respiratory Surgical History: Reports: None GI Surgical History: Reports: Bariatric Procedure, Cholecystectomy, Hernia, Abdominal, Other (See Below) Other GI Surgeries/Procedures: pann on 02/19/2019 Female Surgical History: Reports: Endometrial Ablation, Hysterectomy Other Female Surgeries/Procedures: bilateral fallopian tubes removed and right ovary removed Endocrine Surgical History: Reports: None Neurological Surgical History: Reports: Spinal Fusion, Other (See Below) Other Neurological Surgeries/Procedures: cervical spine fusion Musculoskeletal Surgical History: Reports: Other (See Below) Other Musculoskeletal Surgeries/Procedures:: Neck surgery [facility] [place]. Neck fusion in October 2016 Dermatological Surgical History: Reports: None Social & Family History - Family History Family Medical History: No Pertinent Family History - Tobacco Use Tobacco Use Status *Q: Current Every Day Tobacco User Years of Tobacco use: 26 Packs/Tins Daily: 0.3 - Caffeine Use Caffeine Use: Reports: Coffee, Soda - Recreational Drug Use Recreational Drug Use: No ED ROS GENERAL - Review of Systems Review Of Systems: See Below Constitutional: Reports: Malaise, Decreased Appetite. Denies: Fever, Chills HEENT: Denies: Throat Pain Respiratory: Denies: Shortness of Breath Cardiovascular: Denies: Chest Pain GI/Abdominal: Reports: Abdominal Pain, Nausea, Vomiting Musculoskeletal: Reports: Other (Still having some significant neck discomfort from her surgery needing oxycodone for pain control) Skin: Reports: Other (Petechial rash in her upper chest developed today) Neurological: Denies: Headache, Paresthesia ED EXAM, GENERAL - Physical Exam Exam: See Below Exam Limited By: No Limitations General Appearance: Alert, No Apparent Distress Eye Exam: Bilateral Eye: Normal Inspection (Good hydration, no jaundice) Head: Atraumatic Respiratory/Chest: No Respiratory Distress, Lungs Clear Cardiovascular: Regular Rate, Rhythm. No: Tachycardia GI/Abdominal: Soft, Tender (She does react with tenderness to palpation across the lower abdomen, no focal guarding or rebound) Extremities: Normal Inspection Neurological: Alert, Oriented, No Motor/Sensory Deficits Psychiatric: Normal Affect, Normal Mood Skin Exam: Warm, Dry, Other (She does have a scattered petechial nonpalpable rash across the upper chest) Course - Vital Signs Last Recorded V/S: Last Vital Signs Temp 97.3 F 05/13/21 20:13 Pulse 74 05/13/21 20:13 Resp 16 05/13/21 20:13 BP 152/97 H 05/13/21 20:13 Pulse Ox 97 05/13/21 20:13 - Orders/Labs/Meds Labs: Laboratory Tests 05/13/21 05/13/21 Range/Units 20:33 20:33 WBC 9.6 (4.5-11.0) K/uL RBC 4.21 (3.30-5.50) M/uL Hgb 12.5 (12.0-15.0) g/dL Hct 38.5 (36.0-48.0) % MCV 91 (80-98) fL MCH 30 (27-31) pg MCHC 33 (32-36) % Plt Count 270 (150-400) K/uL Neut % (Auto) 44.8 (36-66) % Lymph % (Auto) 40.7 (24-44) % Leon % (Auto) 8.9 H (2-6) % Eos % (Auto) 5.0 H (2-4) % Baso % (Auto) 0.6 (0-1) % Sodium 141 (140-148) mmol/L Potassium 4.2 (3.6-5.2) mmol/L Chloride 103 (100-108) mmol/L Carbon Dioxide 28 (21-32) mmol/L Anion Gap 10.2 (5.0-14.0) mmol/L BUN 16 (7-18) mg/dL Creatinine 1.0 (0.6-1.0) mg/dL Est Cr Clr Drug Dosing 64.58 mL/min Estimated GFR (MDRD) > 60 (>60) Glucose 92 (74-106) mg/dL Calcium 8.5 (8.5-10.1) mg/dL Total Bilirubin 0.2 D (0.2-1.0) mg/dL AST 19 (15-37) U/L ALT 25 (12-78) U/L Alkaline Phosphatase 76 (46-116) U/L Total Protein 6.4 (6.4-8.2) g/dL Albumin 3.2 L (3.4-5.0) g/dL Globulin 3.2 (2.3-3.5) g/dL Albumin/Globulin Ratio 1.0 L (1.2-2.2) Lipase 72 L (73-393) U/L Meds: Medications Discontinued Medications Generic Name Dose Route Start Last Admin Trade Name Freq PRN Reason Stop Dose Admin Ketorolac Tromethamine 30 mg 05/13/21 21:27 05/13/21 21:37 Ketorolac 30 Mg/Ml Sdv IM 05/13/21 21:28 30 mg ONETIME ONE Administration - Re-Assessments/Exams Free Text/Narrative Re-Assessment/Exam: 05/13/21 22:14 The petechial rash may just be from vomiting. CBC CMP and lipase were obtained as well as a CT of the abdomen and pelvis without contrast. No treatment was given, interestingly the patient was in the emergency room for almost 2 hours and had no emesis. Labs all returned reassuring, she was given 1 injection of Toradol IM and discharged with 10 additional doses along with Zofran for nausea and vomiting. Departure - Departure Time of Disposition: 21:53 Disposition: Home, Self-Care 01 Clinical Impression: Nausea and vomiting Qualifiers: Vomiting type: unspecified Vomiting Intractability: non-intractable Qualified Code(s): R11.2 - Nausea with vomiting, unspecified Abdominal pain Qualifiers: Abdominal location: left lower quadrant Qualified Code(s): R10.32 - Left lower quadrant pain - Discharge Information Instructions: Nausea and Vomiting, Adult Referrals: Yessica Rubin MANNEQUIN MOUNTER [Primary Care Provider] - Forms: ED Department Discharge Care Plan Goals: Continue your current medications, and add ketorolac 1 every 6 hours for pain and use sublingual Zofran as needed for nausea and vomiting for the next 2 to 3 days. Recheck in the clinic at that time if not improving satisfactorily. Return to the emergency room if worsening despite treatment. Sepsis Event Note (ED) - Evaluation Sepsis Screening Result: No Definite Risk - Focused Exam Vital Signs: Vital Signs Temp Pulse Resp BP Pulse Ox 05/13/21 20:13 97.3 F 74 16 152/97 H 97
--- NOTE | 2021-05-13 21:31 | CRLCT ---
For Patients: As a result of the Century Cures Act, medical imaging exams and procedure reports are released immediately into your electronic medical record. You may view this report before your referring provider. If you have questions, please contact your health care provider. INDICATION: Abdominal pain with nausea. Recent cervical spine fusion. COMPARISON: CT of the abdomen and pelvis from 07/19/2009 TECHNIQUE: CT examination of the abdomen and pelvis was performed without contrast enhancement using 2 mm thick axial sections from the lung bases through the pubic symphysis. Oral contrast was not administered. Please note that all CT scans at this facility use dose modulation, iterative reconstruction, and/or weight-based dosing when appropriate to reduce radiation dose to as low as reasonably achievable. FINDINGS: In the abdomen, the unenhanced liver, spleen, pancreas, and adrenals are normal in appearance. The unenhanced kidneys are normal in appearance. Clips are again seen in the gall bladder fossa from cholecystectomy. There is no sign of biliary ductal dilatation. The abdominal aorta is normal in caliber with no sign of dilatation. There is no sign of retroperitoneal mass or adenopathy. Again are several lines of surgical corinna in the gastric fundus consistent with gastric bypass surgery. A small bowl anastamosis is again seen in the left upper quadrant with no sign of stricture. The distal stomach, the rest of the loops of small bowel, and colon in the abdomen are normal in appearance. In the pelvis, the appendix is normal in appearance with no sign of inflammatory process. The loops of small bowel and colon in the pelvis are normal in appearance. The uterus is absent and the adnexal regions are normal in appearance. The urinary bladder is normal in appearance. There is no sign of pelvic or inguinal mass or adenopathy. There is no sign of free air or free fluid in the abdomen or pelvis. The lung bases are clear. The osseous structures are normal in appearance for the patient`s age. IMPRESSION: Nothing seen to correlate with the history of abdominal pain and nausea. No sign of bowel obstruction ileus. No sign of pancreatitis. No sign of any abnormality of the urinary systems. CT of the abdomen shows stable changes of gastric bypass surgery. Stable changes of cholecystectomy with no sign of biliary ductal dilatation. CT of the pelvis shows stable changes of hysterectomy. Please note that all CT scans at this facility use dose modulation, iterative reconstruction, and/or weight-based dosing when appropriate to reduce radiation dose to as low as reasonably achievable. Dictated by Cortez Hernandez MD @ 05/13/2021 9:30:22 PM (Electronically Signed)
== END 2021-05-13 21:54 | disposition home or self-care (01) ==
LOC: JP.ED 19:56
DX: R11.2 Nausea with vomiting, unspecified (principal); R10.32 Left lower quadrant pain; J45.909 Unspecified asthma, uncomplicated; K21.9 Gastro-esophageal reflux disease without esophagitis; E66.9 Obesity, unspecified; Z68.39 Body mass index [BMI] 39.0-39.9, adult; Z72.0 Tobacco use; Z88.6 Allergy status to analgesic agent; Z88.1 Allergy status to other antibiotic agents; Z88.0 Allergy status to penicillin; Z79.899 Other long term (current) drug therapy; Z90.710 Acquired absence of both cervix and uterus; Z98.890 Other specified postprocedural states
CPT/HCPCS: 36415; 74176; 80053; 83690; 85025; 96372; 99284; J1885

== ENCOUNTER 2021-07-07 21:58 | Emergency (ER) | payer MEDICAID ==
[2021-07-07 22:08] VITALS: BP 148/85; PULSE 74
[2021-07-07 23:03] LABS: CORONAVIRUS COVID-19 NAA NEGATIVE (NEGATIVE)
== END 2021-07-07 23:42 | disposition home or self-care (01) ==
LOC: JP.ED 21:58
DX: J20.9 Acute bronchitis, unspecified (principal); K21.9 Gastro-esophageal reflux disease without esophagitis; E66.9 Obesity, unspecified; Z68.41 Body mass index [BMI] 40.0-44.9, adult; Z88.8 Allergy status to other drugs, medicaments and biological substances; Z88.1 Allergy status to other antibiotic agents; Z72.0 Tobacco use; Z88.0 Allergy status to penicillin; Z79.899 Other long term (current) drug therapy; Z20.822 Contact with and (suspected) exposure to COVID-19
CPT/HCPCS: 0241U; 36415; 71045; 80053; 85025; 86140; 99285

== ENCOUNTER 2021-10-27 09:27 | Day surgery (SDC) | payer MEDICAID ==
[2021-10-27] MEDS ORDERED: Sodium Chloride 0.9% 1,000 ML IV SCH (10:00)
[2021-10-27] MEDS ORDERED: Propofol 200 MG/20 ML SDV ONE (10:13)
[2021-10-27] MEDS ORDERED: Midazolam 1 MG/ML 2 ML SDV ONE (10:13)
[2021-10-27] MEDS ORDERED: fentaNYL 100 MCG/2 ML SDV ONE (10:13)
[2021-10-27 12:03] VITALS: PULSE 77
[2021-10-27 12:12] VITALS: BP 117/68
== END 2021-10-27 12:20 | disposition home or self-care (01) ==
LOC: JP.SDS 09:27
PROVIDERS: ATTEND Surgery
DX: K21.00 Gastro-esophageal reflux disease with esophagitis, without bleeding (principal)
CPT/HCPCS: 88305; J2250; J2704; J3010; J7030

== ENCOUNTER 2021-12-03 12:29 | Emergency (ER) | payer MEDICAID ==
[2021-12-03 12:59] VITALS: BP 151/100; PULSE 80
[2021-12-03] MEDS ORDERED: methylPREDNISolone Sodium Succinate 40 MG/1 ML SDV IM ONE (13:29)
== END 2021-12-03 14:00 | disposition home or self-care (01) ==
LOC: JP.ED 12:29
DX: L50.9 Urticaria, unspecified (principal); J45.909 Unspecified asthma, uncomplicated; K21.9 Gastro-esophageal reflux disease without esophagitis; F17.210 Nicotine dependence, cigarettes, uncomplicated; E66.9 Obesity, unspecified; Z68.41 Body mass index [BMI] 40.0-44.9, adult; Z90.49 Acquired absence of other specified parts of digestive tract; Z79.899 Other long term (current) drug therapy; Z88.1 Allergy status to other antibiotic agents; Z88.6 Allergy status to analgesic agent; Z88.0 Allergy status to penicillin; Z91.09 Other allergy status, other than to drugs and biological substances
CPT/HCPCS: 96372; 99282; J2920

== ENCOUNTER 2022-01-30 17:30 | Emergency (ER) | payer MEDICAID ==
[2022-01-30 17:56] VITALS: BP 132/86; PULSE 105
[2022-01-30] MEDS ORDERED: Diphtheria,Pertussis(Acell),Tetanus Vaccine 0.5 ML Syringe IM ONE (18:18)
[2022-01-30] MEDS ORDERED: Bacitracin Oint 1 GM U/D Packet TOP ONE (18:18)
[2022-01-30] MEDS ORDERED: fentaNYL 100 MCG/2 ML SDV IM ONE (18:18)
== END 2022-01-30 19:03 | disposition home or self-care (01) ==
LOC: JP.ED 17:30
DX: T21.22XA Burn of second degree of abdominal wall, initial encounter (principal); E66.9 Obesity, unspecified; F17.210 Nicotine dependence, cigarettes, uncomplicated; K21.9 Gastro-esophageal reflux disease without esophagitis; Z88.1 Allergy status to other antibiotic agents; Z88.0 Allergy status to penicillin; Z88.8 Allergy status to other drugs, medicaments and biological substances; Z23 Encounter for immunization; Z68.41 Body mass index [BMI] 40.0-44.9, adult; X12.XXXA Contact with other hot fluids, initial encounter
CPT/HCPCS: 16020; 90471; 90715; 96372; 99283; J3010

== ENCOUNTER 2022-02-26 10:30 | Emergency (ER) | payer MEDICAID ==
[2022-02-26 11:02] VITALS: BP 127/69; PULSE 83
[2022-02-26] MEDS ORDERED: Ondansetron 4 MG/2 ML SDV IVPUSH ONE (11:14)
[2022-02-26] MEDS ORDERED: Sodium Chloride 0.9% 1,000 ML IV SCH (11:15)
[2022-02-26 11:51] LABS: ESTIMATED GFR 95 mL/min (>60)
== END 2022-02-26 14:04 | disposition home or self-care (01) ==
LOC: JP.ED 10:30
DX: R55 Syncope and collapse (principal); R07.89 Other chest pain; J45.909 Unspecified asthma, uncomplicated; R11.0 Nausea; T43.205A Adverse effect of unspecified antidepressants, initial encounter; F17.210 Nicotine dependence, cigarettes, uncomplicated; E66.9 Obesity, unspecified; Z68.41 Body mass index [BMI] 40.0-44.9, adult; Z88.6 Allergy status to analgesic agent; Z88.1 Allergy status to other antibiotic agents; Z88.8 Allergy status to other drugs, medicaments and biological substances; Z88.0 Allergy status to penicillin; Z91.048 Other nonmedicinal substance allergy status; Z79.899 Other long term (current) drug therapy; Z90.710 Acquired absence of both cervix and uterus
CPT/HCPCS: 36415; 80053; 81001; 84484; 85025; 87086; 93005; 96361; 96374; 99285; J2405; J7030

== ENCOUNTER 2022-05-26 15:17 | Emergency (ER) | payer MEDICAID ==
[2022-05-26] MEDS ORDERED: Ketorolac 30 MG/ML SDV IVPUSH ONE (15:59)
[2022-05-26] MEDS ORDERED: diphenhydrAMINE 50 MG/ML SDV IVPUSH ONE (15:59)
[2022-05-26] MEDS ORDERED: Prochlorperazine 10 MG/2 ML SDV IVPUSH ONE (15:59)
[2022-05-26] MEDS ORDERED: Sodium Chloride 0.9% 1,000 ML IV SCH (16:00)
[2022-05-26] MEDS ORDERED: Iopamidol 755 Mg/ML 100 ML Bottle IV ONE (16:14)
[2022-05-26] MEDS ORDERED: Sodium Chloride 0.9% 10 ML Syringe FLUSH ONE (16:14)
[2022-05-26] MEDS ORDERED: Sodium Chloride 0.9% 75 ML IV ONE (16:14)
[2022-05-26] MEDS: Sodium Chloride 0.9% 10 ML Syringe FLUSH PRN ×2 (16:26→17:03)
[2022-05-26 16:32] LABS: ESTIMATED GFR 95 mL/min (>60); TROPONIN I HIGH SENSITIVITY 10.4 pg/mL (<=60.3)
[2022-05-26 17:16] VITALS: BP 110/68; PULSE 76
== END 2022-05-26 18:29 | disposition home or self-care (01) ==
LOC: JP.ED 15:17
DX: G43.909 Migraine, unspecified, not intractable, without status migrainosus (principal); F17.210 Nicotine dependence, cigarettes, uncomplicated; Z88.6 Allergy status to analgesic agent; Z88.1 Allergy status to other antibiotic agents; Z88.0 Allergy status to penicillin; Z88.8 Allergy status to other drugs, medicaments and biological substances; Z79.899 Other long term (current) drug therapy; Z90.49 Acquired absence of other specified parts of digestive tract; Z90.710 Acquired absence of both cervix and uterus
CPT/HCPCS: 36415; 70450; 70496; 70498; 80053; 83605; 84484; 85025; 93005; 96361; 96374; 96375; 99284; J0780; J1200; J1885; J3490; J7030; Q9967

== ENCOUNTER 2022-11-13 18:49 | Emergency (ER) | payer MEDICAID ==
[2022-11-13 19:08] VITALS: BP 138/83; PULSE 118
[2022-11-13 19:37] LABS: AMORPHOUS SEDIMENT,URINE NOT SEEN; APPEARANCE,URINE CLEAR (CLEAR); BACTERIA,URINE FEW; BILIRUBIN,URINE NEGATIVE (NEGATIVE); COLOR,URINE YELLOW (YELLOW); EPITHELIAL CELLS,URINE FEW; GLUCOSE,URINE NEGATIVE (NEGATIVE); KETONES,URINE NEGATIVE (NEGATIVE); LEUKOCYTE ESTERASE,URINE NEGATIVE (NEGATIVE); MUCUS,URINE RARE; NITRITE,URINE NEGATIVE (NEGATIVE); OCCULT BLOOD,URINE NEGATIVE (NEGATIVE); PH,URINE 5.5 (5.0-8.0); PROTEIN,URINE NEGATIVE (NEGATIVE); RBC,URINE 0-5 (0-5); UROBILINOGEN,URINE 0.2 EU/dL (0.2-1.0); WBC,URINE 0-5 (0-5)
[2022-11-13 20:07] LABS: BASOPHILS ABSOLUTE AUTO 0.05 K/uL (0.00-0.10); BASOPHILS PERCENT AUTO 0.4 % (0.1-1.3); EOSINOPHILS ABSOLUTE AUTO 0.36 K/uL (0.00-0.40); EOSINOPHILS PERCENT AUTO 2.7 % (0.0-5.4); HEMATOCRIT 40.1 % (34.3-46.0); HEMOGLOBIN 13.3 g/dL (11.2-15.5); IMMATURE GRAN ABSOLUTE AUTO 0.07 K/uL (0.00-0.23); IMMATURE GRAN PERCENT AUTO 0.5 % (0.0-0.7); LYMPHOCYTES ABSOLUTE AUTO 4.26 K/uL (0.8-3.3); LYMPHOCYTES PERCENT AUTO 32.4 % (11.4-47.7); MEAN CORPUSCULAR HEMOGLOBIN 28.8 pg (31.6-35.5); MEAN CORPUSCULAR HGB CONC 33.2 g/dL (31.6-35.5); MEAN CORPUSCULAR VOLUME 86.8 fL (81.4-99.0); MONOCYTES ABSOLUTE AUTO 0.68 K/uL (0.20-0.90); MONOCYTES PERCENT AUTO 5.2 % (3.3-12.6); NEUTROPHILS ABSOLUTE AUTO 7.71 K/uL (1.0-7.6); NEUTROPHILS PERCENT AUTO 58.8 % (40.0-78.1); PLATELET COUNT,PLT 306 K/uL (130-375); RED BLOOD CELL COUNT 4.62 M/uL (3.77-5.24); WHITE BLOOD CELL COUNT,WBC 13.1 K/uL (3.2-11.0)
[2022-11-13 20:28] LABS: A/G RATIO 0.8 (1.2-2.2); ALANINE AMINOTRANSFERASE,ALT 35 U/L (12-78); ALBUMIN 3.4 g/dL (3.4-5.0); ALKALINE PHOSPHATASE 102 U/L (46-116); ASPARTATE AMNIOTRANSFERASE,AST 26 U/L (15-37); BILIRUBIN TOTAL 0.2 mg/dL (0.2-1.0); BLOOD UREA NITROGEN,BUN 14 mg/dL (7-18); CALCIUM 8.7 mg/dL (8.5-10.1); CARBON DIOXIDE,CO2 24 mmol/L (21-32); CHLORIDE,CL 102 mmol/L (100-108); CREATININE 0.8 mg/dL (0.6-1.0); EST CRCL DRUG DOSING (CG) 76.55 mL/min; ESTIMATED GFR 95 mL/min (>60); GLUCOSE RANDOM 137 mg/dL (74-106); POTASSIUM,K 3.7 mmol/L (3.6-5.2); PROTEIN TOTAL,TP 7.5 g/dL (6.4-8.2); SODIUM,NA 137 mmol/L (140-148)
[2022-11-13 20:29] LABS: ANION GAP 14.7 mmol/L (5.0-14.0)
[2022-11-13] MEDS ORDERED: Ketorolac 30 MG/ML SDV IM ONE (20:39)
== END 2022-11-13 22:27 | disposition home or self-care (01) ==
LOC: JP.ED 18:49
DX: R10.9 Unspecified abdominal pain (principal); F17.210 Nicotine dependence, cigarettes, uncomplicated; Z88.6 Allergy status to analgesic agent; Z88.1 Allergy status to other antibiotic agents; Z88.0 Allergy status to penicillin; Z79.899 Other long term (current) drug therapy; Z90.49 Acquired absence of other specified parts of digestive tract
CPT/HCPCS: 36415; 74176; 80053; 81001; 83605; 85025; 96372; 99284; J1885

== ENCOUNTER 2023-02-07 15:25 | Emergency (ER) | payer MEDICAID ==
[2023-02-07 16:25] LABS: BASOPHILS ABSOLUTE AUTO 0.02 K/uL (0.00-0.10); BASOPHILS PERCENT AUTO 0.4 % (0.1-1.3); EOSINOPHILS ABSOLUTE AUTO 0.16 K/uL (0.00-0.40); EOSINOPHILS PERCENT AUTO 3.4 % (0.0-5.4); HEMATOCRIT 38.3 % (34.3-46.0); HEMOGLOBIN 12.8 g/dL (11.2-15.5); IMMATURE GRAN PERCENT AUTO 0.2 % (0.0-0.7); LYMPHOCYTES ABSOLUTE AUTO 1.72 K/uL (0.8-3.3); LYMPHOCYTES PERCENT AUTO 36.5 % (11.4-47.7); MEAN CORPUSCULAR HEMOGLOBIN 28.4 pg (31.6-35.5); MEAN CORPUSCULAR HGB CONC 33.4 g/dL (31.6-35.5); MEAN CORPUSCULAR VOLUME 84.9 fL (81.4-99.0); MONOCYTES ABSOLUTE AUTO 0.36 K/uL (0.20-0.90); MONOCYTES PERCENT AUTO 7.6 % (3.3-12.6); NEUTROPHILS ABSOLUTE AUTO 2.44 K/uL (1.0-7.6); NEUTROPHILS PERCENT AUTO 51.9 % (40.0-78.1); PLATELET COUNT,PLT 221 K/uL (130-375); RED BLOOD CELL COUNT 4.51 M/uL (3.77-5.24); WHITE BLOOD CELL COUNT,WBC 4.7 K/uL (3.2-11.0)
[2023-02-07 16:26] LABS: IMMATURE GRAN ABSOLUTE AUTO 0.01 K/uL (0.00-0.23)
[2023-02-07 16:45] LABS: ALANINE AMINOTRANSFERASE,ALT 54 U/L (12-78); ALBUMIN 3.4 g/dL (3.4-5.0); ALKALINE PHOSPHATASE 94 U/L (46-116); ASPARTATE AMNIOTRANSFERASE,AST 70 U/L (15-37); BILIRUBIN TOTAL 0.3 mg/dL (0.2-1.0); BLOOD UREA NITROGEN,BUN 7 mg/dL (7-18); CALCIUM 7.9 mg/dL (8.5-10.1); CARBON DIOXIDE,CO2 28 mmol/L (21-32); CHLORIDE,CL 101 mmol/L (100-108); CREATININE 0.8 mg/dL (0.6-1.0); ESTIMATED GFR 94 mL/min (>60); GLUCOSE RANDOM 95 mg/dL (74-106); POTASSIUM,K 3.9 mmol/L (3.6-5.2); PROTEIN TOTAL,TP 6.9 g/dL (6.4-8.2); SODIUM,NA 135 mmol/L (140-148)
[2023-02-07 16:47] VITALS: BP 176/105; PULSE 86
[2023-02-07 16:53] LABS: ANION GAP 9.9 mmol/L (5.0-14.0)
[2023-02-07] MEDS ORDERED: HYDROmorphone 0.5 MG/0.5 ML Syringe IM ONE (17:03)
== END 2023-02-07 18:46 | disposition home or self-care (01) ==
LOC: JP.ED 15:25
DX: U07.1 COVID-19 (principal); J45.909 Unspecified asthma, uncomplicated; K21.9 Gastro-esophageal reflux disease without esophagitis; E66.9 Obesity, unspecified; Z68.41 Body mass index [BMI] 40.0-44.9, adult; Z88.0 Allergy status to penicillin; Z88.1 Allergy status to other antibiotic agents; Z88.8 Allergy status to other drugs, medicaments and biological substances; Z79.899 Other long term (current) drug therapy
CPT/HCPCS: 36415; 71046; 80053; 85025; 85379; 87635; 93971; 96372; 99283; 99284; J1170; U0002

== ENCOUNTER 2023-04-28 17:23 | Emergency (ER) | payer MEDICAID ==
[2023-04-28] MEDS ORDERED: Ondansetron 4 MG/2 ML SDV IVPUSH ONE (18:24)
[2023-04-28] MEDS ORDERED: Sodium Chloride 0.9% 10 ML Syringe FLUSH PRN (18:24)
[2023-04-28] MEDS ORDERED: Naloxone 0.4 MG/ML SDV IVPUSH PRN (18:26)
[2023-04-28] MEDS ORDERED: HYDROmorphone 0.5 MG/0.5 ML Syringe IVPUSH ONE ×2 (18:26→20:20)
[2023-04-28] MEDS ORDERED: Sodium Chloride 0.9% 1,000 ML IV SCH (18:30)
[2023-04-28 18:43] LABS: BASOPHILS ABSOLUTE AUTO 0.06 K/uL (0.00-0.10); BASOPHILS PERCENT AUTO 0.5 % (0.1-1.3); EOSINOPHILS ABSOLUTE AUTO 0.39 K/uL (0.00-0.40); EOSINOPHILS PERCENT AUTO 3.2 % (0.0-5.4); HEMATOCRIT 41.2 % (34.3-46.0); HEMOGLOBIN 13.6 g/dL (11.2-15.5); IMMATURE GRAN PERCENT AUTO 0.2 % (0.0-0.7); LYMPHOCYTES ABSOLUTE AUTO 4.98 K/uL (0.8-3.3); LYMPHOCYTES PERCENT AUTO 41.4 % (11.4-47.7); MEAN CORPUSCULAR HEMOGLOBIN 28.5 pg (31.6-35.5); MEAN CORPUSCULAR VOLUME 86.4 fL (81.4-99.0); MONOCYTES ABSOLUTE AUTO 0.86 K/uL (0.20-0.90); MONOCYTES PERCENT AUTO 7.1 % (3.3-12.6); NEUTROPHILS ABSOLUTE AUTO 5.72 K/uL (1.0-7.6); NEUTROPHILS PERCENT AUTO 47.6 % (40.0-78.1); PLATELET COUNT,PLT 295 K/uL (130-375); RED BLOOD CELL COUNT 4.77 M/uL (3.77-5.24)
[2023-04-28 18:45] LABS: IMMATURE GRAN ABSOLUTE AUTO 0.02 K/uL (0.00-0.23)
[2023-04-28 19:04] LABS: ALANINE AMINOTRANSFERASE,ALT 35 U/L (12-78); ALBUMIN 3.7 g/dL (3.4-5.0); ALKALINE PHOSPHATASE 98 U/L (46-116); ASPARTATE AMNIOTRANSFERASE,AST 24 U/L (15-37); BILIRUBIN TOTAL 0.2 mg/dL (0.2-1.0); BLOOD UREA NITROGEN,BUN 11 mg/dL (7-18); CALCIUM 8.4 mg/dL (8.5-10.1); CARBON DIOXIDE,CO2 26 mmol/L (21-32); CHLORIDE,CL 102 mmol/L (100-108); CREATININE 0.9 mg/dL (0.6-1.0); EST CRCL DRUG DOSING (CG) 67.36 mL/min; ESTIMATED GFR 82 mL/min (>60); GLUCOSE RANDOM 99 mg/dL (74-106); PROTEIN TOTAL,TP 7.6 g/dL (6.4-8.2); SODIUM,NA 138 mmol/L (140-148)
[2023-04-28 19:12] LABS: APPEARANCE,URINE CLEAR (CLEAR); BILIRUBIN,URINE NEGATIVE (NEGATIVE); COLOR,URINE YELLOW (YELLOW); GLUCOSE,URINE NEGATIVE (NEGATIVE); KETONES,URINE NEGATIVE (NEGATIVE); LEUKOCYTE ESTERASE,URINE NEGATIVE (NEGATIVE); NITRITE,URINE NEGATIVE (NEGATIVE); OCCULT BLOOD,URINE NEGATIVE (NEGATIVE); PH,URINE 6.5 (5.0-8.0); PROTEIN,URINE NEGATIVE (NEGATIVE); UROBILINOGEN,URINE 0.2 EU/dL (0.2-1.0)
[2023-04-28] MEDS ORDERED: Sodium Chloride 0.9% 50 ML IV SCH (19:15)
[2023-04-28] MEDS ORDERED: Iopamidol 612 MG/ML 100 ML Bottle IV SCH (19:15)
[2023-04-28 19:18] LABS: BACTERIA,URINE RARE; EPITHELIAL CELLS,URINE RARE; MUCUS,URINE RARE; RBC,URINE 0-5 (0-5); WBC,URINE 0-5 (0-5)
[2023-04-28 19:19] LABS: AMORPHOUS SEDIMENT,URINE NOT SEEN
[2023-04-28] MEDS ORDERED: Metoclopramide 10 MG/2 ML SDV IVPUSH ONE (20:20)
[2023-04-28] MEDS ORDERED: Famotidine 20 MG/2 ML SDV IVPUSH ONE (20:20)
[2023-04-28 20:28] VITALS: BP 123/69; PULSE 84
== END 2023-04-28 20:59 | disposition home or self-care (01) ==
LOC: JP.ED 17:23
DX: L08.89 Other specified local infections of the skin and subcutaneous tissue (principal); J45.909 Unspecified asthma, uncomplicated; K21.9 Gastro-esophageal reflux disease without esophagitis; E66.9 Obesity, unspecified; F17.210 Nicotine dependence, cigarettes, uncomplicated; Z68.41 Body mass index [BMI] 40.0-44.9, adult; Z88.8 Allergy status to other drugs, medicaments and biological substances; Z88.0 Allergy status to penicillin; Z88.1 Allergy status to other antibiotic agents; Z88.6 Allergy status to analgesic agent; Z91.048 Other nonmedicinal substance allergy status; Z79.899 Other long term (current) drug therapy
CPT/HCPCS: 36415; 74177; 80053; 81001; 85025; 96361; 96374; 96375; 96376; 99284; J1170; J2405; J2765; J3490; J7030; Q9967

== ENCOUNTER 2023-05-08 06:30 | Day surgery (SDC) | payer MEDICAID ==
[2023-05-08] MEDS ORDERED: Propofol 200 MG/20 ML SDV ONE (06:59)
[2023-05-08] MEDS ORDERED: Midazolam 1 MG/ML 2 ML SDV ONE (07:00)
[2023-05-08] MEDS ORDERED: fentaNYL 50 MCG/ML SDV ONE (07:00)
[2023-05-08] MEDS ORDERED: Lactated Ringers 1,000 ML IV SCH (07:30)
[2023-05-08 09:08] VITALS: BP 136/60; PULSE 72
== END 2023-05-08 09:17 | disposition home or self-care (01) ==
LOC: JP.SDS 06:30
PROVIDERS: ATTEND Student in an Organized Health Care Education/Training Program
DX: K29.50 Unspecified chronic gastritis without bleeding (principal); K21.9 Gastro-esophageal reflux disease without esophagitis
CPT/HCPCS: J2250; J2704; J3010; J7120

== ENCOUNTER 2023-08-12 20:07 | Emergency (ER) | payer MEDICAID ==
[2023-08-12] MEDS: Sodium Chloride 0.9% 1,000 ML IV SCH (20:29)
[2023-08-12 20:31] LABS: BASOPHILS PERCENT AUTO 0.2 % (0.1-1.3); HEMATOCRIT 37.2 % (34.3-46.0); HEMOGLOBIN 12.2 g/dL (11.2-15.5); IMMATURE GRAN PERCENT AUTO 0.3 % (0.0-0.7); LYMPHOCYTES ABSOLUTE AUTO 0.86 K/uL (0.8-3.3); LYMPHOCYTES PERCENT AUTO 14.7 % (11.4-47.7); MEAN CORPUSCULAR HEMOGLOBIN 27.6 pg (31.6-35.5); MEAN CORPUSCULAR HGB CONC 32.8 g/dL (31.6-35.5); MEAN CORPUSCULAR VOLUME 84.2 fL (81.4-99.0); MONOCYTES PERCENT AUTO 3.4 % (3.3-12.6); NEUTROPHILS ABSOLUTE AUTO 4.77 K/uL (1.0-7.6); NEUTROPHILS PERCENT AUTO 81.4 % (40.0-78.1); PLATELET COUNT,PLT 266 K/uL (130-375); RED BLOOD CELL COUNT 4.42 M/uL (3.77-5.24); WHITE BLOOD CELL COUNT,WBC 5.9 K/uL (3.2-11.0)
[2023-08-12 20:33] LABS: BASOPHILS ABSOLUTE AUTO 0.01 K/uL (0.00-0.10); IMMATURE GRAN ABSOLUTE AUTO 0.02 K/uL (0.00-0.23)
[2023-08-12 20:46] LABS: APPEARANCE,URINE CLEAR (CLEAR); BILIRUBIN,URINE NEGATIVE (NEGATIVE); COLOR,URINE YELLOW (YELLOW); GLUCOSE,URINE 500 mg/dL (NEGATIVE); KETONES,URINE NEGATIVE (NEGATIVE); LEUKOCYTE ESTERASE,URINE NEGATIVE (NEGATIVE); NITRITE,URINE NEGATIVE (NEGATIVE); OCCULT BLOOD,URINE TRACE-INTACT (NEGATIVE); PROTEIN,URINE NEGATIVE (NEGATIVE); UROBILINOGEN,URINE 0.2 EU/dL (0.2-1.0)
[2023-08-12] MEDS: Ondansetron 4 MG/2 ML SDV IVPUSH ONE (20:48)
[2023-08-12 20:52] LABS: AMORPHOUS SEDIMENT,URINE NOT SEEN; BACTERIA,URINE FEW; EPITHELIAL CELLS,URINE FEW; MUCUS,URINE NOT SEEN; WBC,URINE NOT SEEN (0-5)
[2023-08-12 20:56] LABS: A/G RATIO 0.7 (1.2-2.2); ALANINE AMINOTRANSFERASE,ALT 39 U/L (12-78); ALBUMIN 3.2 g/dL (3.4-5.0); ALKALINE PHOSPHATASE 94 U/L (46-116); ASPARTATE AMNIOTRANSFERASE,AST 28 U/L (15-37); BILIRUBIN TOTAL 0.2 mg/dL (0.2-1.0); BLOOD UREA NITROGEN,BUN 11 mg/dL (7-18); CARBON DIOXIDE,CO2 24 mmol/L (21-32); CHLORIDE,CL 99 mmol/L (100-108); EST CRCL DRUG DOSING (CG) 60.62 mL/min; ESTIMATED GFR 72 mL/min (>60); GLUCOSE RANDOM 276 mg/dL (74-106); PROTEIN TOTAL,TP 7.5 g/dL (6.4-8.2); SODIUM,NA 132 mmol/L (140-148)
[2023-08-12] MEDS: LORazepam 2 MG/ML SDV IVPUSH ONE ×2 (21:04→21:54)
[2023-08-12 21:55] LABS: CORONAVIRUS COVID-19 NAA NEGATIVE (NEGATIVE); INFLUENZA A NAA NEGATIVE (NEGATIVE); INFLUENZA B NAA NEGATIVE (NEGATIVE); RESPIRATORY SYNCYTIAL VIR NAA NEGATIVE (NEGATIVE)
[2023-08-12] MEDS: HYDROmorphone 0.5 MG/0.5 ML Syringe IVPUSH ONE (21:55)
[2023-08-13] MEDS ORDERED: Ondansetron 4 MG/2 ML SDV IV PRN (00:14)
[2023-08-13] MEDS ORDERED: LORazepam 2 MG/ML SDV IV PRN (00:14)
[2023-08-13] MEDS ORDERED: Albuterol/Ipratropium 3.0-0.5 MG/3 ML Neb Soln INH PRN (00:27)
[2023-08-13] MEDS ORDERED: Amitriptyline 10 MG Tab PO PRN (00:27)
[2023-08-13] MEDS ORDERED: Albuterol 6.7 GM Inhaler INH PRN (00:27)
[2023-08-13] MEDS: Ondansetron 4 MG/2 ML SDV IVPUSH ONE (00:31)
[2023-08-13] MEDS: Sodium Chloride 0.9% 1,000 ML IV SCH (01:04)
[2023-08-13] MEDS: Acetaminophen/oxyCODONE 325-5 MG Tab PO PRN (01:09)
[2023-08-13 05:33] VITALS: BP 117/62; PULSE 73
[2023-08-13] MEDS: Pantoprazole 40 MG Tab.CR PO SCH (07:29)
[2023-08-13] MEDS: Calcium Carbonate/Vitamin D3 1500 MG-400 Units Tab PO SCH (08:51)
[2023-08-13] MEDS: Docusate Sodium 100 MG Cap PO SCH (08:51)
[2023-08-13] MEDS: Amitriptyline 10 MG Tab PO SCH (08:52)
[2023-08-13] MEDS: Folic Acid 1 MG Tab PO SCH (08:52)
[2023-08-13] MEDS: Gabapentin 300 MG Cap PO SCH (08:52)
[2023-08-13] MEDS: Vitamin B6-pyridOXINE 50 MG Tab PO SCH (08:53)
[2023-08-13] MEDS ORDERED: Non-Formulary Medication 1 Each (Pantoprazole [Pantoprazole] 20 MG Tab.Dr) PO SCH (09:00)
[2023-08-13] MEDS ORDERED: Gabapentin 300 MG Cap PO SCH ×2 (09:00→21:00)
[2023-08-13] MEDS ORDERED: Non-Formulary Medication 1 Each (Calcium Carbonate [Calcium] 600 MG Tablet) PO SCH (09:00)
== END 2023-08-13 12:05 | disposition home or self-care (01) ==
LOC: JP.ED 20:07 → JP.MS 08-13 00:15
PROVIDERS: ADMIT Family Medicine; ATTEND Family Medicine
DX: R73.9 Hyperglycemia, unspecified (principal); E86.0 Dehydration; R41.0 Disorientation, unspecified; R51.9 Headache, unspecified; K21.9 Gastro-esophageal reflux disease without esophagitis; E66.9 Obesity, unspecified; Z68.41 Body mass index [BMI] 40.0-44.9, adult; Z79.899 Other long term (current) drug therapy; Z88.8 Allergy status to other drugs, medicaments and biological substances; Z91.048 Other nonmedicinal substance allergy status; Z88.0 Allergy status to penicillin; Z88.1 Allergy status to other antibiotic agents; Z88.6 Allergy status to analgesic agent
CPT/HCPCS: 0241U; 36415; 70450; 80053; 81001; 82947; 83605; 84484; 85025; 96361; 96374; 96375; 96376; 99285; A9270; J1170; J2060; J2405; J7030; G0378

== ENCOUNTER 2024-04-04 13:57 | Emergency (ER) | payer MEDICAID ==
[2024-04-04 14:26] LABS: APPEARANCE,URINE CLEAR (CLEAR); BILIRUBIN,URINE NEGATIVE (NEGATIVE); COLOR,URINE YELLOW (YELLOW); GLUCOSE,URINE NEGATIVE (NEGATIVE); KETONES,URINE NEGATIVE (NEGATIVE); LEUKOCYTE ESTERASE,URINE NEGATIVE (NEGATIVE); NITRITE,URINE NEGATIVE (NEGATIVE); OCCULT BLOOD,URINE NEGATIVE (NEGATIVE); PROTEIN,URINE NEGATIVE (NEGATIVE)
[2024-04-04 14:27] LABS: AMORPHOUS SEDIMENT,URINE NOT SEEN; BACTERIA,URINE RARE; EPITHELIAL CELLS,URINE FEW; MUCUS,URINE FEW; RBC,URINE 0-5 (0-5); WBC,URINE 0-5 (0-5)
[2024-04-04] MEDS ORDERED: Naloxone 0.4 MG/ML SDV IVPUSH PRN (15:27)
[2024-04-04] MEDS ORDERED: Sodium Chloride 0.9% 1,000 ML IV SCH (15:30)
[2024-04-04 15:47] LABS: BASOPHILS ABSOLUTE AUTO 0.04 K/uL (0.00-0.10); BASOPHILS PERCENT AUTO 0.5 % (0.1-1.3); EOSINOPHILS ABSOLUTE AUTO 0.19 K/uL (0.00-0.40); EOSINOPHILS PERCENT AUTO 2.5 % (0.0-5.4); HEMATOCRIT 38.7 % (34.3-46.0); HEMOGLOBIN 13.2 g/dL (11.2-15.5); IMMATURE GRAN PERCENT AUTO 0.1 % (0.0-0.7); LYMPHOCYTES ABSOLUTE AUTO 2.91 K/uL (0.8-3.3); LYMPHOCYTES PERCENT AUTO 38.6 % (11.4-47.7); MEAN CORPUSCULAR HEMOGLOBIN 29.3 pg (31.6-35.5); MEAN CORPUSCULAR HGB CONC 34.1 g/dL (31.6-35.5); MONOCYTES ABSOLUTE AUTO 0.44 K/uL (0.20-0.90); MONOCYTES PERCENT AUTO 5.8 % (3.3-12.6); NEUTROPHILS ABSOLUTE AUTO 3.95 K/uL (1.0-7.6); NEUTROPHILS PERCENT AUTO 52.5 % (40.0-78.1); PLATELET COUNT,PLT 233 K/uL (130-375); WHITE BLOOD CELL COUNT,WBC 7.5 K/uL (3.2-11.0)
[2024-04-04 15:49] LABS: IMMATURE GRAN ABSOLUTE AUTO 0.01 K/uL (0.00-0.23)
[2024-04-04 16:08] LABS: ALANINE AMINOTRANSFERASE,ALT 35 U/L (12-78); ALBUMIN 3.7 g/dL (3.4-5.0); ALKALINE PHOSPHATASE 106 U/L (46-116); ANION GAP 10.2 mmol/L (5.0-14.0); ASPARTATE AMNIOTRANSFERASE,AST 25 U/L (15-37); BILIRUBIN TOTAL 0.4 mg/dL (0.2-1.0); BLOOD UREA NITROGEN,BUN 10 mg/dL (7-18); CALCIUM 9.4 mg/dL (8.5-10.1); CARBON DIOXIDE,CO2 25 mmol/L (21-32); CHLORIDE,CL 105 mmol/L (100-108); CREATININE 0.9 mg/dL (0.6-1.0); ESTIMATED GFR 81 mL/min (>60); GLUCOSE RANDOM 117 mg/dL (74-106); POTASSIUM,K 4.1 mmol/L (3.6-5.2); PROTEIN TOTAL,TP 7.3 g/dL (6.4-8.2); SODIUM,NA 140 mmol/L (140-148)
[2024-04-04] MEDS: Ondansetron 4 MG/2 ML SDV IVPUSH ONE (16:15)
[2024-04-04] MEDS: HYDROmorphone 0.5 MG/0.5 ML Syringe IVPUSH ONE (16:16)
[2024-04-04] MEDS: Sodium Chloride 0.9% 10 ML Syringe FLUSH PRN (16:17)
[2024-04-04 16:20] VITALS: BP 152/89; PULSE 63
[2024-04-04] MEDS: Iopamidol 612 MG/ML 100 ML Bottle IV ONE (17:20)
[2024-04-04] MEDS: Sodium Chloride 0.9% 100 ML IV ONE (17:21)
[2024-04-04] MEDS: Sodium Chloride 0.9% 10 ML Syringe FLUSH ONE (17:21)
[2024-04-04] MEDS: LORazepam 2 MG/ML SDV IVPUSH ONE (18:07)
[2024-04-04] MEDS: Baclofen 10 MG Tab PO ONE (19:08)
[2024-04-04] MEDS: Ketorolac 30 MG/ML SDV IVPUSH ONE (19:09)
== END 2024-04-04 19:25 | disposition home or self-care (01) ==
LOC: JP.ED 13:57
DX: S39.012A Strain of muscle, fascia and tendon of lower back, initial encounter (principal); I10 Essential (primary) hypertension; J45.909 Unspecified asthma, uncomplicated; K21.9 Gastro-esophageal reflux disease without esophagitis; E66.9 Obesity, unspecified; Z86.16 Personal history of COVID-19; Z79.899 Other long term (current) drug therapy; Z88.6 Allergy status to analgesic agent; Z88.0 Allergy status to penicillin; Z88.8 Allergy status to other drugs, medicaments and biological substances; Z91.048 Other nonmedicinal substance allergy status; X58.XXXA Exposure to other specified factors, initial encounter
CPT/HCPCS: 36415; 72132; 72193; 76377; 80053; 81001; 85025; 96374; 96375; 99284; A9270; J1171; J1885; J2060; J2405; J3490; Q9967

== ENCOUNTER 2024-05-18 20:44 | Emergency (ER) | payer MEDICAID ==
[2024-05-18 21:05] VITALS: BP 168/86; PULSE 106
[2024-05-18] MEDS: Ondansetron 4 MG Tab.DIS PO ONE (21:51)
[2024-05-18 21:59] LABS: BASOPHILS PERCENT AUTO 0.2 % (0.1-1.3); HEMATOCRIT 38.7 % (34.3-46.0); IMMATURE GRAN PERCENT AUTO 0.3 % (0.0-0.7); LYMPHOCYTES ABSOLUTE AUTO 0.98 K/uL (0.8-3.3); LYMPHOCYTES PERCENT AUTO 16.8 % (11.4-47.7); MEAN CORPUSCULAR HEMOGLOBIN 29.7 pg (31.6-35.5); MEAN CORPUSCULAR HGB CONC 33.6 g/dL (31.6-35.5); MEAN CORPUSCULAR VOLUME 88.4 fL (81.4-99.0); MONOCYTES ABSOLUTE AUTO 0.08 K/uL (0.20-0.90); MONOCYTES PERCENT AUTO 1.4 % (3.3-12.6); NEUTROPHILS ABSOLUTE AUTO 4.75 K/uL (1.0-7.6); NEUTROPHILS PERCENT AUTO 81.3 % (40.0-78.1); PLATELET COUNT,PLT 249 K/uL (130-375); RED BLOOD CELL COUNT 4.38 M/uL (3.77-5.24); WHITE BLOOD CELL COUNT,WBC 5.8 K/uL (3.2-11.0)
[2024-05-18 22:01] LABS: BASOPHILS ABSOLUTE AUTO 0.01 K/uL (0.00-0.10); IMMATURE GRAN ABSOLUTE AUTO 0.02 K/uL (0.00-0.23)
[2024-05-18 22:22] LABS: ALANINE AMINOTRANSFERASE,ALT 32 U/L (12-78); ALBUMIN 3.8 g/dL (3.4-5.0); ALKALINE PHOSPHATASE 116 U/L (46-116); ASPARTATE AMNIOTRANSFERASE,AST 25 U/L (15-37); BILIRUBIN TOTAL 0.3 mg/dL (0.2-1.0); BLOOD UREA NITROGEN,BUN 13 mg/dL (7-18); CALCIUM 9.6 mg/dL (8.5-10.1); CARBON DIOXIDE,CO2 25 mmol/L (21-32); CHLORIDE,CL 102 mmol/L (100-108); CREATININE 0.9 mg/dL (0.6-1.0); ESTIMATED GFR 81 mL/min (>60); GLUCOSE RANDOM 176 mg/dL (74-106); POTASSIUM,K 4.1 mmol/L (3.6-5.2); PROTEIN TOTAL,TP 7.8 g/dL (6.4-8.2); SODIUM,NA 137 mmol/L (140-148); TROPONIN I HIGH SENSITIVITY 4.1 pg/mL (<=60.3)
[2024-05-18 22:23] LABS: ANION GAP 14.1 mmol/L (5.0-14.0); C-REACTIVE PROTEIN < 0.50 mg/dL (<0.50)
[2024-05-18] MEDS: Prochlorperazine 10 MG Tab PO ONE (22:52)
== END 2024-05-18 23:10 | disposition home or self-care (01) ==
LOC: JP.ED 20:44
DX: G43.919 Migraine, unspecified, intractable, without status migrainosus (principal); R73.9 Hyperglycemia, unspecified; I10 Essential (primary) hypertension; K21.9 Gastro-esophageal reflux disease without esophagitis; E66.9 Obesity, unspecified; Z86.16 Personal history of COVID-19; Z88.5 Allergy status to narcotic agent; Z88.6 Allergy status to analgesic agent; Z88.1 Allergy status to other antibiotic agents; Z88.0 Allergy status to penicillin; Z91.09 Other allergy status, other than to drugs and biological substances; Z68.37 Body mass index [BMI] 37.0-37.9, adult
CPT/HCPCS: 36415; 80053; 83690; 84484; 85025; 86140; 93005; 93010; 99284; 99285; Q0162; Q0164

== ENCOUNTER 2024-12-27 19:36 | Emergency (ER) | payer MEDICAID, MEDICARE ==
[2024-12-27 20:05] VITALS: BP 105/74; PULSE 75
[2024-12-27] MEDS: Ketorolac 30 MG/ML SDV IM ONE (20:50)
== END 2024-12-27 20:58 | disposition home or self-care (01) ==
LOC: JP.ED 19:36
DX: R07.89 Other chest pain (principal); I10 Essential (primary) hypertension; F17.210 Nicotine dependence, cigarettes, uncomplicated; Z88.6 Allergy status to analgesic agent; Z88.1 Allergy status to other antibiotic agents; Z88.0 Allergy status to penicillin; Z88.8 Allergy status to other drugs, medicaments and biological substances; Z91.09 Other allergy status, other than to drugs and biological substances; Z79.899 Other long term (current) drug therapy; Z86.16 Personal history of COVID-19
CPT/HCPCS: 93005; 96372; 99284; J1885